=== PATIENT | male | born 1935 | race Caucasian/White ===

== ENCOUNTER 2017-06-27 06:26 | Inpatient (IN) ==
[2017-06-27] MEDS ORDERED: PROPOFOL 1,000 MG/100 ML BOTTLE IV ONE (06:48)
[2017-06-27] MEDS ORDERED: SUCCINYLCHOLINE 200 MG/10 ML VIAL ONE (06:49)
[2017-06-27] MEDS ORDERED: ETOMIDATE 20 MG/10 ML VIAL IV ONE (06:49)
[2017-06-27 07:19] LABS: Basophils % 0.4 % (0.0-0.8); Eosinophils # 0.3 10*3/uL (0.0-0.87); Eosinophils % 3.2 % (0.00-10.9); Hemoglobin 16.6 GM/DL (14.0-18.0); Immature Granulocytes % 0.8 %; Immature Granulocytes Absolute 0.07 #; Lymphocytes # 3.5 10*3/uL (1.4-4.0); Mean Corpuscular HGB Conc 32.5 GM/DL (32-36); Mean Corpuscular Hemoglobin 31 PG (27-34); Mean Corpuscular Volume 94.4 FL (87-102); Mean Platelet Volume 11.3 FL (9.6-12.0); Monocytes # 0.6 10*3/uL (0.11-0.8); Neutrophils # 4.5 10*3/uL (1.4-7.4); Neutrophils % 49.6 % (38.7-73.9); Platelet Count 136 T/CUMM (130-400); White Blood Count 9.1 T/CUMM (4-12)
[2017-06-27 07:28] LABS: INR 1.1; PT Patient Result 11.4 SECS; Partial Thromboplastin Time 26.1 SECS (0-40)
[2017-06-27 07:42] LABS: Alanine Aminotransferase 33 U/L (16-61); Albumin 3.7 G/DL (3.4-5.0); Alkaline Phosphatase 133 U/L (45-117); Aspartate Amino Transferase 42 U/L (0-37); Blood Urea Nitrogen 26 MG/DL (7-18); Calcium 8.6 MG/DL (8.5-10.1); Glucose 213 MG/DL (74-106); Osmolality,Calculated 287.5 MOS/KG (273-304); Potassium 4.2 MMOL/L (3.5-5.1); Sodium 139 MMOL/L (136-145); Total Protein 7.5 G/DL (6.4-8.3)
[2017-06-27] MEDS ORDERED: VECURONIUM 10 MG VIAL IV ONE ×3 (07:51→09:30)
[2017-06-27 07:53] LABS: Troponin I Only 0.193 NG/ML (0.00-0.045)
[2017-06-27] MEDS ORDERED: VECURONIUM 10 MG VIAL IV STA (08:44)
[2017-06-27] MEDS ORDERED: FUROSEMIDE 40 MG/4 ML VIAL IV STA (09:06)
[2017-06-27] MEDS ORDERED: NITROGLYCERIN 2% OINT 1 INCH/GM PACK TOP STA (09:06)
[2017-06-27] MEDS ORDERED: FUROSEMIDE 40 MG/4 ML VIAL ONE (09:10)
[2017-06-27] MEDS ORDERED: NITROGLYCERIN 2% OINT 1 INCH/GM PACK TOP ONE (09:11)
[2017-06-27 10:30] LABS: ABG Base Excess -4.9 MMOL/L (-2.5-2.5); ABG HCO3 20.5 MMOL/L (20-26); ABG Oxygen Saturation 98.9 % (95-100); ABG TCO2 22.2 MMOL/L (23-27); Pt O2 Delivery Device Ventilator
[2017-06-27 10:33] LABS: ABG PH 7.204 (7.35-7.45)
[2017-06-27] MEDS ORDERED: ENOXAPARIN 100 MG/ML SYRINGE SUBCUT SCH (11:00)
[2017-06-27] MEDS ORDERED: PIPERACILLIN/TAZOBACTAM 3.375 MG in SODIUM CHLORIDE 0.9% 100 ML IV SCH (11:00)
[2017-06-27] MEDS ORDERED: ASPIRIN 325 MG TABLET PO SCH (11:30)
[2017-06-27 11:42] LABS: ABG PCO2 58.6 MM HG (35-48); ABG PH 7.222 (7.35-7.45); Pt O2 Delivery Device Ventilator
[2017-06-27 11:43] LABS: ABG Base Excess -5.7 MMOL/L (-2.5-2.5); ABG HCO3 19.8 MMOL/L (20-26); ABG Oxygen Saturation 94.3 % (95-100); ABG PO2 80.5 MM HG (80-95); ABG TCO2 20.5 MMOL/L (23-27)
[2017-06-27 11:46] LABS: Free T4 (Free Thyroxine) 0.92 NG/DL (0.76-1.46); Thyroid Stimulating Hormone 5.26 uIU/ml (0.358-3.74)
[2017-06-27] MEDS ORDERED: METOPROLOL TARTRATE 5 MG/5 ML VIAL IV ONE (11:49)
[2017-06-27] MEDS: PROPOFOL 1,000 MG/100 ML BOTTLE IV SCH ×2 (11:51→21:23)
[2017-06-27] MEDS: NITROGLYCERIN DRIP 50 MG/250 ML BOTTLE IV SCH (11:58)
[2017-06-27] MEDS ORDERED: METOPROLOL TARTRATE 5 MG/5 ML VIAL IV SCH (12:00)
[2017-06-27] MEDS: PANTOPRAZOLE 40 MG VIAL IV SCH (12:30)
[2017-06-27] MEDS: METOPROLOL TARTRATE 5 MG/5 ML VIAL IV SCH ×3 (12:34→21:21)
[2017-06-27 12:47] LABS: Apearance,Urine CLEAR (Clear); Bilirubin,Urine Negative (Negative); Blood, Urine Small mg/dL (Negative); Glucose,Urine (UA) Negative (Negative); Hyaline Casts,Urine 4 /LPF (0-3); Ketones,Urine Negative (Negative); Mucus,Urine Occasional /LPF (Occasional); Nitrite,Urine Negative (Negative); Protein,Urine 30 MG/DL; RBC,Urine <1 /HPF (0-4); Squamous Epithelial Cell,Urine Occasional /HPF (0-10); Urine Color Straw (Yellow); Urine Specific Gravity 1.005 (1.001-1.035); Urine Urobilinogen < 2.0 EU/DL (0.2-1.0); WBC,Urine <1 /HPF (0-6)
[2017-06-27] MEDS: DOXYCYCLINE HYCLATE INJ 100 MG in SODIUM CHLORIDE 0.9% 100 ML IV SCH ×2 (13:29→22:05)
[2017-06-27] MEDS: PIPERACILLIN/TAZOBACTAM 3.375 MG in SODIUM CHLORIDE 0.9% 100 ML IV SCH ×2 (14:21→21:21)
[2017-06-27] MEDS ORDERED: cloNIDine 0.1 MG TABLET PO SCH (15:00)
[2017-06-27] MEDS ORDERED: ENOXAPARIN 40 MG/0.4 ML SYRINGE SUBCUT ONE (16:00)
[2017-06-27] MEDS: FUROSEMIDE 40 MG/4 ML VIAL IV SCH (17:17)
[2017-06-27 17:50] LABS: CKMB % 9.2 %
[2017-06-27 17:52] LABS: Troponin I Only 22.5 NG/ML (0.00-0.045)
[2017-06-28] MEDS: METOPROLOL TARTRATE 5 MG/5 ML VIAL IV SCH ×6 (01:37→21:08)
[2017-06-28] MEDS: PROPOFOL 1,000 MG/100 ML BOTTLE IV SCH ×4 (03:36→18:57)
[2017-06-28 03:46] LABS: ABG Base Excess -2.2 MMOL/L (-2.5-2.5); ABG HCO3 22.6 MMOL/L (20-26); ABG PCO2 34.4 MM HG (35-48); ABG PH 7.407 (7.35-7.45); ABG TCO2 17.9 MMOL/L (23-27)
[2017-06-28] MEDS: PIPERACILLIN/TAZOBACTAM 3.375 MG in SODIUM CHLORIDE 0.9% 100 ML IV SCH ×3 (04:44→21:08)
[2017-06-28 05:26] LABS: Basophils % 0.2 % (0.0-0.8); Hematocrit 49.2 VOL% (42.0-52.0); Hemoglobin 16.5 GM/DL (14.0-18.0); Immature Granulocytes % 0.5 %; Immature Granulocytes Absolute 0.07 #; Lymphocytes # 0.8 10*3/uL (1.4-4.0); Mean Corpuscular HGB Conc 33.5 GM/DL (32-36); Mean Corpuscular Hemoglobin 30 PG (27-34); Mean Corpuscular Volume 90.6 FL (87-102); Mean Platelet Volume 11.9 FL (9.6-12.0); Monocytes # 0.8 10*3/uL (0.11-0.8); Neutrophils # 13.8 10*3/uL (1.4-7.4); Neutrophils % 89.3 % (38.7-73.9); Platelet Count 114 T/CUMM (130-400); Red Blood Count 5.43 MC/CUMM (3.8-5.5); Red Cell Distribution Width 14.4 % (9.3-17.3); White Blood Count 15.5 T/CUMM (4-12)
[2017-06-28 06:06] LABS: CKMB % 4.5 %
[2017-06-28 06:07] LABS: Troponin I Only 17.4 NG/ML (0.00-0.045)
[2017-06-28 06:21] LABS: Calcium 8.6 MG/DL (8.5-10.1); Osmolality,Calculated 292.3 MOS/KG (273-304); Potassium 4.8 MMOL/L (3.5-5.1)
[2017-06-28] MEDS: PANTOPRAZOLE 40 MG VIAL IV SCH (08:52)
[2017-06-28] MEDS: FUROSEMIDE 40 MG/4 ML VIAL IV SCH ×2 (08:53→17:24)
[2017-06-28] MEDS ORDERED: ENOXAPARIN 40 MG/0.4 ML SYRINGE SUBCUT SCH (09:00)
[2017-06-28] MEDS: MORPHINE 2 MG/1 ML SYRINGE IV PRN (10:47)
[2017-06-28] MEDS: DOXYCYCLINE HYCLATE INJ 100 MG in SODIUM CHLORIDE 0.9% 100 ML IV SCH ×2 (11:35→23:39)
[2017-06-28] MEDS: ASPIRIN CHEW 81 MG TABLET PO SCH (12:29)
[2017-06-28] MEDS: CARVEDILOL 3.125 MG TABLET PO SCH ×2 (12:29→21:08)
[2017-06-28] MEDS: ATORVASTATIN 80 MG TABLET PO SCH (12:29)
[2017-06-28] MEDS: NITROGLYCERIN DRIP 50 MG/250 ML BOTTLE IV SCH (12:41)
[2017-06-28] MEDS ORDERED: DIGOXIN 0.5 MG/2 ML AMP IV ONE (15:17)
[2017-06-28] MEDS: OSELTAMIVIR 6 MG/ML 60 ML/BOTTLE PO SCH (17:23)
[2017-06-28] MEDS: PHENYLEPHRINE DRIP 40 MG/250 ML PREMIX IV SCH (21:02)
[2017-06-29] MEDS: PROPOFOL 1,000 MG/100 ML BOTTLE IV SCH ×4 (01:16→22:15)
[2017-06-29] MEDS: METOPROLOL TARTRATE 5 MG/5 ML VIAL IV SCH ×3 (01:17→08:09)
[2017-06-29 04:19] LABS: ABG Base Excess 1.9 MMOL/L (-2.5-2.5); ABG HCO3 26.1 MMOL/L (20-26); ABG Oxygen Saturation 98.6 % (95-100); ABG PCO2 37.4 MM HG (35-48); ABG PH 7.444 (7.35-7.45); ABG TCO2 21.3 MMOL/L (23-27); Allen Test Positive; Pt O2 Delivery Device Ventilator
[2017-06-29 05:12] LABS: Basophils % 0.1 % (0.0-0.8); Hemoglobin 16.6 GM/DL (14.0-18.0); Immature Granulocytes % 0.5 %; Immature Granulocytes Absolute 0.08 #; Lymphocytes # 1.1 10*3/uL (1.4-4.0); Lymphocytes % 7.1 % (21.2-54.2); Mean Corpuscular HGB Conc 33.9 GM/DL (32-36); Mean Corpuscular Hemoglobin 30 PG (27-34); Mean Corpuscular Volume 89.4 FL (87-102); Monocytes # 0.7 10*3/uL (0.11-0.8); Monocytes % 4.7 % (1.7-12.7); Neutrophils # 13.3 10*3/uL (1.4-7.4); Neutrophils % 87.6 % (38.7-73.9); Platelet Count 98 T/CUMM (130-400); Red Blood Count 5.48 MC/CUMM (3.8-5.5); Red Cell Distribution Width 14.4 % (9.3-17.3); White Blood Count 15.2 T/CUMM (4-12)
[2017-06-29 05:44] LABS: CKMB % 1.6 %; Troponin I Only 9.02 NG/ML (0.00-0.045)
[2017-06-29 05:49] LABS: Risk Ratio 4.61; VLDL CHOLESTEROL 46.2 MG/DL
[2017-06-29] MEDS: PIPERACILLIN/TAZOBACTAM 3.375 MG in SODIUM CHLORIDE 0.9% 100 ML IV SCH ×3 (05:50→21:25)
[2017-06-29 05:57] LABS: Giant Platelets Few; Hypochromasia Slight; Platelet Estimate Decreased
[2017-06-29 05:58] LABS: Calcium 8.6 MG/DL (8.5-10.1); Potassium 3.7 MMOL/L (3.5-5.1)
[2017-06-29] MEDS: ATORVASTATIN 80 MG TABLET PO SCH (08:07)
[2017-06-29] MEDS: CARVEDILOL 3.125 MG TABLET PO SCH ×2 (08:07→21:25)
[2017-06-29] MEDS: ASPIRIN CHEW 81 MG TABLET PO SCH (08:09)
[2017-06-29] MEDS: OSELTAMIVIR 6 MG/ML 60 ML/BOTTLE PO SCH (08:10)
[2017-06-29] MEDS: PANTOPRAZOLE 40 MG VIAL IV SCH (08:12)
[2017-06-29] MEDS ORDERED: FUROSEMIDE 100 MG/10 ML VIAL IV ONE (09:00)
[2017-06-29] MEDS ORDERED: ENOXAPARIN 30 MG/0.3 ML SYRINGE SUBCUT SCH (09:00)
[2017-06-29] MEDS: methylPREDNISolone SOD SUC 40 MG/1 ML VIAL IV SCH ×2 (09:15→16:15)
[2017-06-29] MEDS: NITROGLYCERIN DRIP 50 MG/250 ML BOTTLE IV SCH ×3 (10:06→17:50)
[2017-06-29] MEDS: DOXYCYCLINE HYCLATE INJ 100 MG in SODIUM CHLORIDE 0.9% 100 ML IV SCH ×2 (10:40→23:09)
[2017-06-29] MEDS ORDERED: ENOXAPARIN 60 MG/0.6 ML SYRINGE SUBCUT ONE (11:41)
[2017-06-29] MEDS: PHENYLEPHRINE DRIP 40 MG/250 ML PREMIX IV SCH (15:11)
[2017-06-29] MEDS: MORPHINE 2 MG/1 ML SYRINGE IV PRN ×2 (16:10→23:06)
[2017-06-30] MEDS: methylPREDNISolone SOD SUC 40 MG/1 ML VIAL IV SCH ×3 (01:13→16:46)
[2017-06-30 01:47] LABS: Basophils % 0.1 % (0.0-0.8); Hematocrit 47.2 VOL% (42.0-52.0); Hemoglobin 16.1 GM/DL (14.0-18.0); Immature Granulocytes % 0.6 %; Immature Granulocytes Absolute 0.09 #; Lymphocytes # 0.7 10*3/uL (1.4-4.0); Mean Corpuscular HGB Conc 34.1 GM/DL (32-36); Mean Corpuscular Hemoglobin 31 PG (27-34); Mean Corpuscular Volume 89.6 FL (87-102); Mean Platelet Volume 12.3 FL (9.6-12.0); Monocytes # 0.4 10*3/uL (0.11-0.8); Monocytes % 2.8 % (1.7-12.7); Neutrophils # 12.9 10*3/uL (1.4-7.4); Neutrophils % 91.5 % (38.7-73.9); Platelet Count 116 T/CUMM (130-400); Red Blood Count 5.27 MC/CUMM (3.8-5.5); Red Cell Distribution Width 14.2 % (9.3-17.3)
[2017-06-30 02:02] LABS: Calcium 8.2 MG/DL (8.5-10.1); Osmolality,Calculated 312.8 MOS/KG (273-304); Potassium 3.3 MMOL/L (3.5-5.1)
[2017-06-30] MEDS ORDERED: METOPROLOL TARTRATE 5 MG/5 ML VIAL IV ONE ×2 (03:36)
[2017-06-30 04:29] LABS: Allen Test Positive; Pt O2 Delivery Device Ventilator
[2017-06-30 04:30] LABS: ABG Base Excess 2.1 MMOL/L (-2.5-2.5); ABG HCO3 26.3 MMOL/L (20-26); ABG Oxygen Saturation 99.1 % (95-100); ABG PCO2 40.1 MM HG (35-48); ABG PH 7.428 (7.35-7.45); ABG TCO2 22.3 MMOL/L (23-27)
[2017-06-30] MEDS: PROPOFOL 1,000 MG/100 ML BOTTLE IV SCH (04:58)
[2017-06-30] MEDS: PIPERACILLIN/TAZOBACTAM 3.375 MG in SODIUM CHLORIDE 0.9% 100 ML IV SCH ×3 (04:59→21:45)
[2017-06-30 05:02] LABS: Anisocytosis 1+; Band Neutrophils 2 % (0-10); Lymphocytes 4 % (20-55); Macrocytosis 1+; Platelet Estimate Decreased; Segmented Neutrophils 92 % (50-85); Total Cells Counted 100
[2017-06-30] MEDS: ATORVASTATIN 80 MG TABLET PO SCH (08:51)
[2017-06-30] MEDS: OSELTAMIVIR 6 MG/ML 60 ML/BOTTLE PO SCH (08:51)
[2017-06-30] MEDS: ASPIRIN CHEW 81 MG TABLET PO SCH (08:51)
[2017-06-30] MEDS: CARVEDILOL 3.125 MG TABLET PO SCH (08:51)
[2017-06-30] MEDS: PANTOPRAZOLE 40 MG VIAL IV SCH (08:52)
[2017-06-30] MEDS ORDERED: CARVEDILOL 3.125 MG TABLET PO ONE (09:59)
[2017-06-30] MEDS ORDERED: ENOXAPARIN 100 MG/ML SYRINGE SUBCUT SCH (10:00)
[2017-06-30] MEDS: DOXYCYCLINE HYCLATE INJ 100 MG in SODIUM CHLORIDE 0.9% 100 ML IV SCH ×2 (11:30→23:56)
[2017-06-30] MEDS: ENOXAPARIN 100 MG/ML SYRINGE SUBCUT SCH (11:30)
[2017-06-30] MEDS ORDERED: CARVEDILOL 3.125 MG TABLET PO SCH (12:00)
[2017-06-30] MEDS: PHENYLEPHRINE DRIP 40 MG/250 ML PREMIX IV SCH (16:31)
[2017-06-30] MEDS: POTASSIUM CHLORIDE 20 MEQ TABLET PO PRN ×3 (16:46→21:46)
[2017-06-30] MEDS: NYSTATIN 500,000 UNIT/5 ML UDCUP SWISH/SWAL SCH ×2 (16:46→21:46)
[2017-06-30] MEDS: NITROGLYCERIN DRIP 50 MG/250 ML BOTTLE IV SCH (18:39)
[2017-06-30] MEDS: CARVEDILOL 6.25 MG TABLET PO SCH (21:46)
[2017-06-30] MEDS: MORPHINE 2 MG/1 ML SYRINGE IV PRN (21:52)
[2017-06-30] MEDS ORDERED: MAGNESIUM SULF RIDER 2 GM in PREMIX 1 EACH IV PRN (22:50)
[2017-06-30] MEDS ORDERED: MAGNESIUM SULF RIDER 4 GM in PREMIX 1 EACH IV PRN (22:50)
[2017-06-30] MEDS: ASCORBIC ACID 500 MG TABLET PO SCH (23:57)
[2017-06-30] MEDS: METOPROLOL TARTRATE 5 MG/5 ML VIAL IV SCH (23:58)
[2017-07-01] MEDS: methylPREDNISolone SOD SUC 40 MG/1 ML VIAL IV SCH ×3 (00:03→17:22)
[2017-07-01] MEDS: NITROGLYCERIN DRIP 50 MG/250 ML BOTTLE IV SCH (03:27)
[2017-07-01 04:51] LABS: Basophils % 0.1 % (0.0-0.8); Hematocrit 39.7 VOL% (42.0-52.0); Hemoglobin 13.6 GM/DL (14.0-18.0); Immature Granulocytes % 0.7 %; Immature Granulocytes Absolute 0.08 #; Lymphocytes # 0.5 10*3/uL (1.4-4.0); Lymphocytes % 4.4 % (21.2-54.2); Mean Corpuscular HGB Conc 34.3 GM/DL (32-36); Mean Corpuscular Hemoglobin 30 PG (27-34); Mean Corpuscular Volume 88.8 FL (87-102); Mean Platelet Volume 12.2 FL (9.6-12.0); Monocytes # 0.4 10*3/uL (0.11-0.8); Monocytes % 3.1 % (1.7-12.7); Neutrophils % 91.7 % (38.7-73.9); Platelet Count 112 T/CUMM (130-400); Red Blood Count 4.47 MC/CUMM (3.8-5.5); Red Cell Distribution Width 13.6 % (9.3-17.3)
[2017-07-01 05:14] LABS: Giant Platelets Few; Hypochromasia 1+; Lymphocytes 6 % (20-55); Ovalocytes Slight; Platelet Estimate Decreased; Segmented Neutrophils 94 % (50-85); Total Cells Counted 100
[2017-07-01 05:45] LABS: Calcium 8.2 MG/DL (8.5-10.1); Osmolality,Calculated 307.4 MOS/KG (273-304); Potassium 3.7 MMOL/L (3.5-5.1)
[2017-07-01] MEDS: METOPROLOL TARTRATE 5 MG/5 ML VIAL IV SCH (07:13)
[2017-07-01] MEDS: POTASSIUM CHLORIDE 20 MEQ TABLET PO PRN (07:15)
[2017-07-01] MEDS: PIPERACILLIN/TAZOBACTAM 3.375 MG in SODIUM CHLORIDE 0.9% 100 ML IV SCH ×3 (07:15→21:51)
[2017-07-01] MEDS: ATORVASTATIN 80 MG TABLET PO SCH (08:55)
[2017-07-01] MEDS: NYSTATIN 500,000 UNIT/5 ML UDCUP SWISH/SWAL SCH ×4 (08:55→21:50)
[2017-07-01] MEDS: ISOSORBIDE MONONITRATE 30 MG TABLET PO SCH (08:55)
[2017-07-01] MEDS: ASPIRIN CHEW 81 MG TABLET PO SCH (08:55)
[2017-07-01] MEDS: ASCORBIC ACID 500 MG TABLET PO SCH ×2 (08:55→21:50)
[2017-07-01] MEDS: CARVEDILOL 6.25 MG TABLET PO SCH (08:55)
[2017-07-01] MEDS: PANTOPRAZOLE 40 MG VIAL IV SCH (08:56)
[2017-07-01] MEDS: OSELTAMIVIR 6 MG/ML 60 ML/BOTTLE PO SCH (08:59)
[2017-07-01] MEDS ORDERED: amLODIPine 5 MG TABLET PO SCH (09:00)
[2017-07-01] MEDS: ENOXAPARIN 100 MG/ML SYRINGE SUBCUT SCH (10:01)
[2017-07-01] MEDS: DOXYCYCLINE HYCLATE INJ 100 MG in SODIUM CHLORIDE 0.9% 100 ML IV SCH (11:31)
[2017-07-01] MEDS ORDERED: diphenhydrAMINE CAP 25 MG CAPSULE PO ONE (13:43)
[2017-07-01] MEDS: MORPHINE 2 MG/1 ML SYRINGE IV PRN (14:13)
[2017-07-01] MEDS: MAGNESIUM OXIDE 400 MG TABLET PO SCH (14:16)
[2017-07-01] MEDS: LORATADINE 10 MG TABLET PO SCH (14:16)
[2017-07-01] MEDS: SODIUM BICARB INJ 100 MEQ in SODIUM CHLORIDE 0.45% 1,000 ML IV SCH (14:22)
[2017-07-01] MEDS ORDERED: CARVEDILOL 12.5 MG TABLET PO SCH (21:00)
[2017-07-01] MEDS: hydrALAZINE 25 MG TABLET PO SCH (21:50)
[2017-07-02] MEDS: methylPREDNISolone SOD SUC 40 MG/1 ML VIAL IV SCH ×3 (01:37→17:21)
[2017-07-02] MEDS: DOXYCYCLINE HYCLATE INJ 100 MG in SODIUM CHLORIDE 0.9% 100 ML IV SCH ×3 (01:38→22:48)
[2017-07-02] MEDS: PIPERACILLIN/TAZOBACTAM 3.375 MG in SODIUM CHLORIDE 0.9% 100 ML IV SCH ×3 (05:49→20:29)
[2017-07-02 06:00] LABS: Basophils % 0.2 % (0.0-0.8); Hematocrit 43.1 VOL% (42.0-52.0); Hemoglobin 14.9 GM/DL (14.0-18.0); Immature Granulocytes % 1.5 %; Immature Granulocytes Absolute 0.14 #; Lymphocytes # 0.4 10*3/uL (1.4-4.0); Lymphocytes % 4.5 % (21.2-54.2); Mean Corpuscular HGB Conc 34.6 GM/DL (32-36); Mean Corpuscular Hemoglobin 30 PG (27-34); Mean Corpuscular Volume 87.2 FL (87-102); Mean Platelet Volume 12.3 FL (9.6-12.0); Monocytes # 0.5 10*3/uL (0.11-0.8); Monocytes % 4.9 % (1.7-12.7); Neutrophils # 8.6 10*3/uL (1.4-7.4); Neutrophils % 88.9 % (38.7-73.9); Platelet Count 127 T/CUMM (130-400); Red Blood Count 4.94 MC/CUMM (3.8-5.5); Red Cell Distribution Width 13.6 % (9.3-17.3); White Blood Count 9.6 T/CUMM (4-12)
[2017-07-02 06:32] LABS: Calcium 8.1 MG/DL (8.5-10.1); Potassium 3.6 MMOL/L (3.5-5.1)
[2017-07-02] MEDS ORDERED: DIAZEPAM 5 MG TABLET PO ONE (07:00)
[2017-07-02] MEDS: hydrALAZINE 25 MG TABLET PO SCH (08:10)
[2017-07-02] MEDS: amLODIPine 10 MG TABLET PO SCH (08:10)
[2017-07-02] MEDS: ISOSORBIDE MONONITRATE 30 MG TABLET PO SCH (08:10)
[2017-07-02 08:27] LABS: Hypochromasia 1+; Lymphocytes 2 % (20-55); Microcytosis 1+; Platelet Estimate Decreased; Segmented Neutrophils 95 % (50-85); Total Cells Counted 100
[2017-07-02] MEDS ORDERED: CARVEDILOL 25 MG TABLET PO SCH (09:00)
[2017-07-02] MEDS: MORPHINE 2 MG/1 ML SYRINGE IV PRN (10:15)
[2017-07-02] MEDS: PANTOPRAZOLE 40 MG VIAL IV SCH (10:19)
[2017-07-02] MEDS: OSELTAMIVIR 6 MG/ML 60 ML/BOTTLE PO SCH (10:19)
[2017-07-02] MEDS: ENOXAPARIN 100 MG/ML SYRINGE SUBCUT SCH (10:19)
[2017-07-02] MEDS: MAGNESIUM OXIDE 400 MG TABLET PO SCH (10:20)
[2017-07-02] MEDS: ASCORBIC ACID 500 MG TABLET PO SCH ×2 (10:20→20:30)
[2017-07-02] MEDS: NYSTATIN 500,000 UNIT/5 ML UDCUP SWISH/SWAL SCH ×4 (10:20→20:30)
[2017-07-02] MEDS: LORATADINE 10 MG TABLET PO SCH (10:21)
[2017-07-02] MEDS: ATORVASTATIN 80 MG TABLET PO SCH (10:21)
[2017-07-02] MEDS: ASPIRIN CHEW 81 MG TABLET PO SCH (10:21)
[2017-07-02] MEDS: SODIUM BICARB INJ 100 MEQ in SODIUM CHLORIDE 0.45% 1,000 ML IV SCH (12:52)
[2017-07-02] MEDS ORDERED: CARVEDILOL 12.5 MG TABLET PO SCH (21:00)
[2017-07-03] MEDS: methylPREDNISolone SOD SUC 40 MG/1 ML VIAL IV SCH ×2 (01:00→09:13)
[2017-07-03] MEDS: PIPERACILLIN/TAZOBACTAM 3.375 MG in SODIUM CHLORIDE 0.9% 100 ML IV SCH ×3 (05:15→20:35)
[2017-07-03 05:49] LABS: Basophils % 0.1 % (0.0-0.8); Hematocrit 42.4 VOL% (42.0-52.0); Hemoglobin 14.4 GM/DL (14.0-18.0); Immature Granulocytes % 1.2 %; Lymphocytes # 0.4 10*3/uL (1.4-4.0); Lymphocytes % 4.9 % (21.2-54.2); Mean Corpuscular Hemoglobin 30 PG (27-34); Mean Corpuscular Volume 88.3 FL (87-102); Mean Platelet Volume 12.4 FL (9.6-12.0); Monocytes # 0.6 10*3/uL (0.11-0.8); Monocytes % 7.2 % (1.7-12.7); Neutrophils # 7.1 10*3/uL (1.4-7.4); Neutrophils % 86.6 % (38.7-73.9); Platelet Count 111 T/CUMM (130-400); Red Cell Distribution Width 13.6 % (9.3-17.3); White Blood Count 8.2 T/CUMM (4-12)
[2017-07-03 06:13] LABS: Calcium 7.9 MG/DL (8.5-10.1); Magnesium 2.4 MG/DL (1.8-2.4); Osmolality,Calculated 297.1 MOS/KG (273-304); Potassium 3.8 MMOL/L (3.5-5.1)
[2017-07-03 06:21] LABS: Osmolality,Calculated 297.1 MOS/KG (273-304); Potassium 3.8 MMOL/L (3.5-5.1)
[2017-07-03 08:32] LABS: Band Neutrophils 6 % (0-10); Lymphocytes 11 % (20-55); Platelet Estimate Normal; Segmented Neutrophils 80 % (50-85); Total Cells Counted 100
[2017-07-03] MEDS: ATORVASTATIN 80 MG TABLET PO SCH (09:00)
[2017-07-03] MEDS: ASCORBIC ACID 500 MG TABLET PO SCH ×2 (09:00→20:36)
[2017-07-03] MEDS: amLODIPine 10 MG TABLET PO SCH (09:00)
[2017-07-03] MEDS: MAGNESIUM OXIDE 400 MG TABLET PO SCH (09:01)
[2017-07-03] MEDS: LORATADINE 10 MG TABLET PO SCH (09:01)
[2017-07-03] MEDS: ISOSORBIDE MONONITRATE 30 MG TABLET PO SCH (09:01)
[2017-07-03] MEDS: ENOXAPARIN 100 MG/ML SYRINGE SUBCUT SCH (09:02)
[2017-07-03] MEDS: NYSTATIN 500,000 UNIT/5 ML UDCUP SWISH/SWAL SCH ×4 (09:02→20:36)
[2017-07-03] MEDS: OSELTAMIVIR 6 MG/ML 60 ML/BOTTLE PO SCH (09:02)
[2017-07-03] MEDS: ASPIRIN CHEW 81 MG TABLET PO SCH (09:02)
[2017-07-03] MEDS: CARVEDILOL 25 MG TABLET PO SCH ×2 (09:05→20:36)
[2017-07-03] MEDS: PANTOPRAZOLE 40 MG VIAL IV SCH (09:10)
[2017-07-03] MEDS: DOXYCYCLINE HYCLATE INJ 100 MG in SODIUM CHLORIDE 0.9% 100 ML IV SCH ×2 (10:42→23:47)
[2017-07-03] MEDS: ISOSORBIDE MONONITRATE 60 MG TABLET PO SCH (10:43)
[2017-07-03] MEDS: ZINC OXIDE PASTE 113 GM TUBE TOP SCH (20:35)
[2017-07-04 04:16] LABS: Calcium 7.8 MG/DL (8.5-10.1); Magnesium 2.4 MG/DL (1.8-2.4); Potassium 3.9 MMOL/L (3.5-5.1)
[2017-07-04] MEDS: PIPERACILLIN/TAZOBACTAM 3.375 MG in SODIUM CHLORIDE 0.9% 100 ML IV SCH ×3 (05:13→20:48)
[2017-07-04] MEDS: amLODIPine 10 MG TABLET PO SCH (08:40)
[2017-07-04] MEDS: predniSONE 20 MG TABLET PO SCH (08:40)
[2017-07-04] MEDS: MAGNESIUM OXIDE 400 MG TABLET PO SCH (08:40)
[2017-07-04] MEDS: ASPIRIN CHEW 81 MG TABLET PO SCH (08:40)
[2017-07-04] MEDS: CARVEDILOL 25 MG TABLET PO SCH ×2 (08:40→20:47)
[2017-07-04] MEDS: ISOSORBIDE MONONITRATE 60 MG TABLET PO SCH (08:41)
[2017-07-04] MEDS: NYSTATIN 500,000 UNIT/5 ML UDCUP SWISH/SWAL SCH ×4 (08:41→20:46)
[2017-07-04] MEDS: ATORVASTATIN 80 MG TABLET PO SCH (08:41)
[2017-07-04] MEDS: ZINC OXIDE PASTE 113 GM TUBE TOP SCH ×2 (08:41→23:08)
[2017-07-04] MEDS: PANTOPRAZOLE 40 MG VIAL IV SCH (08:44)
[2017-07-04] MEDS: DOXYCYCLINE HYCLATE INJ 100 MG in SODIUM CHLORIDE 0.9% 100 ML IV SCH ×2 (11:45→23:08)
[2017-07-04] MEDS ORDERED: POTASSIUM CHLORIDE RIDER 10 MEQ in PREMIX 1 EACH IV PRN (13:33)
[2017-07-04] MEDS ORDERED: MAGNESIUM SULF RIDER 2 GM in PREMIX 1 EACH IV PRN (13:33)
[2017-07-04] MEDS ORDERED: diphenhydrAMINE CAP 25 MG CAPSULE PO ONE (13:33)
[2017-07-04] MEDS ORDERED: DIAZEPAM 5 MG TABLET PO ONE (13:33)
[2017-07-04] MEDS ORDERED: LIDOCAINE 1% 20 ML VIAL ONE (15:58)
[2017-07-04] MEDS ORDERED: HYDROmorphone 2 MG/1 ML VIAL ONE (15:59)
[2017-07-04] MEDS ORDERED: MIDAZOLAM 2 MG/2 ML VIAL ONE (15:59)
[2017-07-04] MEDS ORDERED: ENOXAPARIN 60 MG/0.6 ML SYRINGE ONE (16:24)
[2017-07-04] MEDS ORDERED: TIROFIBAN 5,000 MCG/100 ML PREMIX IV ONE (16:27)
[2017-07-04] MEDS ORDERED: ENOXAPARIN 30 MG/0.3 ML SYRINGE ONE (16:44)
[2017-07-04] MEDS ORDERED: TIROFIBAN 5,000 MCG/100 ML PREMIX IV SCH (16:47)
[2017-07-04] MEDS: ASCORBIC ACID 500 MG TABLET PO SCH ×2 (17:25→20:47)
[2017-07-04] MEDS: LORATADINE 10 MG TABLET PO SCH (17:25)
[2017-07-04] MEDS: ENOXAPARIN 100 MG/ML SYRINGE SUBCUT SCH (17:26)
[2017-07-04] MEDS ORDERED: TICAGRELOR 90 MG TABLET ONE (17:27)
[2017-07-04] MEDS ORDERED: NITROGLYCERIN SL 0.4 MG TABLET SL PRN (17:28)
[2017-07-04] MEDS ORDERED: ZALEPLON 5 MG CAPSULE PO PRN (17:28)
[2017-07-04] MEDS ORDERED: ONDANSETRON 4 MG/2 ML VIAL IV PRN (17:28)
[2017-07-04] MEDS ORDERED: SODIUM CHLORIDE 0.45% 1,000 ML IV SCH (17:30)
[2017-07-04 19:40] LABS: CKMB % 1.8 %; Troponin I Only 0.72 NG/ML (0.00-0.045)
[2017-07-04] MEDS: TICAGRELOR 90 MG TABLET PO SCH (20:47)
[2017-07-04] MEDS: SODIUM BICARB INJ 100 MEQ in SODIUM CHLORIDE 0.45% 1,000 ML IV SCH (20:47)
[2017-07-05] MEDS: PIPERACILLIN/TAZOBACTAM 3.375 MG in SODIUM CHLORIDE 0.9% 100 ML IV SCH ×3 (05:22→21:19)
[2017-07-05 06:20] LABS: Basophils % 0.2 % (0.0-0.8); Eosinophils # 0.2 10*3/uL (0.0-0.87); Eosinophils % 1.3 % (0.00-10.9); Hematocrit 40.6 VOL% (42.0-52.0); Hemoglobin 13.8 GM/DL (14.0-18.0); Immature Granulocytes % 1.6 %; Immature Granulocytes Absolute 0.19 #; Lymphocytes # 0.6 10*3/uL (1.4-4.0); Lymphocytes % 4.8 % (21.2-54.2); Mean Corpuscular Hemoglobin 30 PG (27-34); Mean Corpuscular Volume 89.2 FL (87-102); Mean Platelet Volume 12.3 FL (9.6-12.0); Monocytes # 0.9 10*3/uL (0.11-0.8); Monocytes % 7.6 % (1.7-12.7); Neutrophils # 10.2 10*3/uL (1.4-7.4); Neutrophils % 84.5 % (38.7-73.9); Platelet Count 147 T/CUMM (130-400); Red Blood Count 4.55 MC/CUMM (3.8-5.5)
[2017-07-05 06:46] LABS: Eosinophils 1 % (0-10); Lymphocytes 4 % (20-55); Segmented Neutrophils 89 % (50-85); Total Cells Counted 100
[2017-07-05 06:47] LABS: Hypochromasia 1+; Microcytosis Slight; Platelet Estimate Adequate
[2017-07-05 06:54] LABS: Calcium 8.1 MG/DL (8.5-10.1); Magnesium 2.7 MG/DL (1.8-2.4); Osmolality,Calculated 298.1 MOS/KG (273-304); Potassium 3.7 MMOL/L (3.5-5.1)
[2017-07-05 07:00] LABS: CKMB % 2.1 %; Calcium 8.1 MG/DL (8.5-10.1); Osmolality,Calculated 298.1 MOS/KG (273-304); Potassium 3.8 MMOL/L (3.5-5.1); Troponin I Only 0.856 NG/ML (0.00-0.045)
[2017-07-05] MEDS: TICAGRELOR 90 MG TABLET PO SCH ×2 (09:14→21:20)
[2017-07-05] MEDS: MAGNESIUM OXIDE 400 MG TABLET PO SCH (09:14)
[2017-07-05] MEDS: ASPIRIN CHEW 81 MG TABLET PO SCH (09:14)
[2017-07-05] MEDS: ISOSORBIDE MONONITRATE 60 MG TABLET PO SCH (09:14)
[2017-07-05] MEDS: ASCORBIC ACID 500 MG TABLET PO SCH ×2 (09:14→21:20)
[2017-07-05] MEDS: amLODIPine 10 MG TABLET PO SCH (09:14)
[2017-07-05] MEDS: ATORVASTATIN 80 MG TABLET PO SCH (09:14)
[2017-07-05] MEDS: NYSTATIN 500,000 UNIT/5 ML UDCUP SWISH/SWAL SCH ×4 (09:14→21:19)
[2017-07-05] MEDS: LORATADINE 10 MG TABLET PO SCH (09:15)
[2017-07-05] MEDS: ZINC OXIDE PASTE 113 GM TUBE TOP SCH ×2 (09:15→21:20)
[2017-07-05] MEDS: CARVEDILOL 25 MG TABLET PO SCH ×2 (09:15→21:19)
[2017-07-05] MEDS: predniSONE 20 MG TABLET PO SCH (09:15)
[2017-07-05] MEDS: PANTOPRAZOLE 40 MG VIAL IV SCH (09:16)
[2017-07-05] MEDS: ENOXAPARIN 100 MG/ML SYRINGE SUBCUT SCH (09:16)
[2017-07-05] MEDS: DOXYCYCLINE HYCLATE INJ 100 MG in SODIUM CHLORIDE 0.9% 100 ML IV SCH ×2 (12:31→23:15)
[2017-07-05] MEDS: SODIUM BICARB INJ 100 MEQ in SODIUM CHLORIDE 0.45% 1,000 ML IV SCH (21:21)
[2017-07-06 04:12] LABS: Basophils % 0.1 % (0.0-0.8); Eosinophils # 0.4 10*3/uL (0.0-0.87); Eosinophils % 3.8 % (0.00-10.9); Hematocrit 36.3 VOL% (42.0-52.0); Hemoglobin 12.3 GM/DL (14.0-18.0); Immature Granulocytes % 1.3 %; Immature Granulocytes Absolute 0.12 #; Lymphocytes # 0.7 10*3/uL (1.4-4.0); Lymphocytes % 7.4 % (21.2-54.2); Mean Corpuscular HGB Conc 33.9 GM/DL (32-36); Mean Corpuscular Hemoglobin 30 PG (27-34); Mean Corpuscular Volume 88.8 FL (87-102); Mean Platelet Volume 11.5 FL (9.6-12.0); Monocytes # 0.7 10*3/uL (0.11-0.8); Monocytes % 7.8 % (1.7-12.7); Neutrophils # 7.2 10*3/uL (1.4-7.4); Neutrophils % 79.6 % (38.7-73.9); Platelet Count 137 T/CUMM (130-400); Red Blood Count 4.09 MC/CUMM (3.8-5.5); Red Cell Distribution Width 13.9 % (9.3-17.3); White Blood Count 9.1 T/CUMM (4-12)
[2017-07-06 04:44] LABS: Magnesium 2.5 MG/DL (1.8-2.4); Osmolality,Calculated 296.3 MOS/KG (273-304); Potassium 3.6 MMOL/L (3.5-5.1)
[2017-07-06 04:52] LABS: Troponin I Only 0.788 NG/ML (0.00-0.045)
[2017-07-06] MEDS: PIPERACILLIN/TAZOBACTAM 3.375 MG in SODIUM CHLORIDE 0.9% 100 ML IV SCH ×2 (05:22→13:12)
[2017-07-06] MEDS ORDERED: ASPIRIN EC 81 MG TABLET PO SCH (09:00)
[2017-07-06] MEDS: PANTOPRAZOLE 40 MG VIAL IV SCH (09:30)
[2017-07-06] MEDS: MAGNESIUM OXIDE 400 MG TABLET PO SCH (09:52)
[2017-07-06] MEDS: CARVEDILOL 25 MG TABLET PO SCH (09:52)
[2017-07-06] MEDS: ASCORBIC ACID 500 MG TABLET PO SCH (09:53)
[2017-07-06] MEDS: amLODIPine 10 MG TABLET PO SCH (09:53)
[2017-07-06] MEDS: ISOSORBIDE MONONITRATE 60 MG TABLET PO SCH (09:53)
[2017-07-06] MEDS: predniSONE 20 MG TABLET PO SCH (09:53)
[2017-07-06] MEDS: LORATADINE 10 MG TABLET PO SCH (09:53)
[2017-07-06] MEDS: ATORVASTATIN 80 MG TABLET PO SCH (09:53)
[2017-07-06] MEDS: TICAGRELOR 90 MG TABLET PO SCH (09:53)
[2017-07-06] MEDS: NYSTATIN 500,000 UNIT/5 ML UDCUP SWISH/SWAL SCH ×2 (09:54→12:42)
[2017-07-06] MEDS: ZINC OXIDE PASTE 113 GM TUBE TOP SCH (09:54)
[2017-07-06] MEDS: ENOXAPARIN 100 MG/ML SYRINGE SUBCUT SCH (10:54)
[2017-07-06 11:34] VITALS: BP 109/51
[2017-07-06] MEDS: DOXYCYCLINE HYCLATE INJ 100 MG in SODIUM CHLORIDE 0.9% 100 ML IV SCH (12:07)
[2017-07-06] MEDS: SODIUM BICARB INJ 100 MEQ in SODIUM CHLORIDE 0.45% 1,000 ML IV SCH (12:41)
== END 2017-07-06 15:50 | disposition home or self-care (01) | DRG 981 ==
LOC: N.ED 06:26 → SUATTDRO 08:51 → N.EDINP 08:51 → N.CC 09:27 → N.TELEN 07-01 13:45
PROVIDERS: ADMIT Hospitalist; ATTEND Internal Medicine
PROC: CLCCHCL (ICD-10-PCS; 2017-07-04 15:15)

== ENCOUNTER 2017-07-07 12:45 | Inpatient (IN) ==
[2017-07-07] MEDS ORDERED: SODIUM CHLORIDE 0.9% 1,000 ML IV STA ×2 (13:00→13:25)
[2017-07-07 13:39] LABS: ABG Base Excess 3.9 MMOL/L (-2.5-2.5); ABG HCO3 27.9 MMOL/L (20-26); ABG Oxygen Saturation 98.3 % (95-100); ABG PCO2 40.1 MM HG (35-48); ABG PH 7.454 (7.35-7.45); ABG PO2 99.3 MM HG (80-95); ABG TCO2 25.8 MMOL/L (23-27)
[2017-07-07 14:26] LABS: Albumin 1.5 G/DL (3.4-5.0); Bilirubin,Total 0.6 MG/DL (0.2-1.0); Calcium 6.9 MG/DL (8.5-10.1); Osmolality,Calculated 302.6 MOS/KG (273-304); Potassium 3.5 MMOL/L (3.5-5.1); Total Protein 3.4 G/DL (6.4-8.3)
[2017-07-07] MEDS ORDERED: MAGNESIUM SULF RIDER 4 GM in PREMIX 1 EACH IV PRN (14:36)
[2017-07-07] MEDS ORDERED: LACTULOSE 20 GM/30 ML UDCUP PO PRN (14:36)
[2017-07-07] MEDS ORDERED: POTASSIUM CHLORIDE 20 MEQ TABLET PO PRN (14:36)
[2017-07-07] MEDS ORDERED: DOCUSATE SODIUM 100 MG CAPSULE PO PRN (14:36)
[2017-07-07] MEDS ORDERED: ACETAMINOPHEN 325 MG TABLET PO PRN (14:36)
[2017-07-07] MEDS ORDERED: ONDANSETRON 4 MG/2 ML VIAL IV PRN (14:36)
[2017-07-07] MEDS ORDERED: MAGNESIUM SULF RIDER 2 GM in PREMIX 1 EACH IV PRN (14:36)
[2017-07-07 14:53] LABS: Basophils % 0.1 % (0.0-0.8); Eosinophils # 0.2 10*3/uL (0.0-0.87); Eosinophils % 1.2 % (0.00-10.9); Hematocrit 30.5 VOL% (42.0-52.0); Hemoglobin 10.2 GM/DL (14.0-18.0); Immature Granulocytes % 1.4 %; Immature Granulocytes Absolute 0.18 #; Lymphocytes # 0.8 10*3/uL (1.4-4.0); Lymphocytes % 5.9 % (21.2-54.2); Mean Corpuscular HGB Conc 33.4 GM/DL (32-36); Mean Corpuscular Hemoglobin 30 PG (27-34); Mean Corpuscular Volume 90.8 FL (87-102); Mean Platelet Volume 11.7 FL (9.6-12.0); Monocytes # 0.9 10*3/uL (0.11-0.8); Neutrophils % 84.4 % (38.7-73.9); Platelet Count 163 T/CUMM (130-400); Red Blood Count 3.36 MC/CUMM (3.8-5.5); Red Cell Distribution Width 13.9 % (9.3-17.3)
[2017-07-07 14:53] LABS: Apearance,Urine CLEAR (Clear); Bacteria,Urine Occasional /HPF (Few); Bilirubin,Urine Negative (Negative); Blood, Urine Negative (Negative); Glucose,Urine (UA) Negative (Negative); Hyaline Casts,Urine 4 /LPF (0-3); Ketones,Urine Negative (Negative); Nitrite,Urine Negative (Negative); Protein,Urine Negative; RBC,Urine 2 /HPF (0-4); Urine Color Yellow (Yellow); Urine Specific Gravity 1.021 (1.001-1.035); Urine Urobilinogen < 2.0 EU/DL (0.2-1.0); WBC,Urine 1 /HPF (0-6)
[2017-07-07] MEDS ORDERED: HEPARIN/NACL 0.9% 2 UNITS/ML 0 ML IV ONE (14:55)
[2017-07-07] MEDS ORDERED: LIDOCAINE 1% 20 ML VIAL ONE (14:55)
[2017-07-07] MEDS ORDERED: SODIUM CHLORIDE 0.9% 1,000 ML IV SCH (15:00)
[2017-07-07 15:07] LABS: INR 1.1; PT Patient Result 11.4 SECS; Partial Thromboplastin Time 25.3 SECS (0-40)
[2017-07-07 17:51] LABS: Eosinophils # 0.1 10*3/uL (0.0-0.87); Eosinophils % 0.5 % (0.00-10.9); Hematocrit 30.8 VOL% (42.0-52.0); Hemoglobin 10.2 GM/DL (14.0-18.0); Immature Granulocytes % 1.4 %; Immature Granulocytes Absolute 0.19 #; Lymphocytes # 0.6 10*3/uL (1.4-4.0); Lymphocytes % 4.5 % (21.2-54.2); Mean Corpuscular HGB Conc 33.1 GM/DL (32-36); Mean Corpuscular Hemoglobin 30 PG (27-34); Mean Corpuscular Volume 90.1 FL (87-102); Mean Platelet Volume 11.5 FL (9.6-12.0); Monocytes # 0.8 10*3/uL (0.11-0.8); Monocytes % 5.6 % (1.7-12.7); Neutrophils # 12.2 10*3/uL (1.4-7.4); Platelet Count 155 T/CUMM (130-400); Red Blood Count 3.42 MC/CUMM (3.8-5.5); Red Cell Distribution Width 13.9 % (9.3-17.3); White Blood Count 13.9 T/CUMM (4-12)
[2017-07-07] MEDS: PANTOPRAZOLE 40 MG TABLET PO SCH (18:58)
[2017-07-07 21:21] LABS: Hemoglobin 8.4 GM/DL (14.0-18.0)
[2017-07-07 21:45] LABS: Burr Cells Few; Platelet Estimate Normal; Poikilocytosis Slight
[2017-07-07] MEDS: ASCORBIC ACID 500 MG TABLET PO SCH (22:09)
[2017-07-07] MEDS: POTASSIUM CHLORIDE 20 MEQ TABLET PO SCH (22:10)
[2017-07-07] MEDS: ZALEPLON 5 MG CAPSULE PO PRN (23:06)
[2017-07-07] MEDS ORDERED: PROPOFOL 1,000 MG/100 ML BOTTLE IV ONE (23:34)
[2017-07-07] MEDS ORDERED: SODIUM CHLORIDE 0.9% 1,000 ML IV PRN (23:45)
[2017-07-08] MEDS ORDERED: diphenhydrAMINE CAP 25 MG CAPSULE PO ONE (06:00)
[2017-07-08] MEDS: LEVOTHYROXINE 75 MCG TABLET PO SCH (07:02)
[2017-07-08 08:46] LABS: Calcium 7.6 MG/DL (8.5-10.1); Magnesium 2.3 MG/DL (1.8-2.4); Osmolality,Calculated 298.3 MOS/KG (273-304); Potassium 4.5 MMOL/L (3.5-5.1)
[2017-07-08] MEDS ORDERED: ATORVASTATIN 80 MG TABLET PO SCH (09:00)
[2017-07-08] MEDS: LORATADINE 10 MG TABLET PO SCH (09:07)
[2017-07-08] MEDS: ASCORBIC ACID 500 MG TABLET PO SCH ×2 (09:07→21:27)
[2017-07-08] MEDS: predniSONE 20 MG TABLET PO SCH (09:07)
[2017-07-08] MEDS: POTASSIUM CHLORIDE 20 MEQ TABLET PO SCH ×2 (09:07→21:27)
[2017-07-08] MEDS: PANTOPRAZOLE 40 MG TABLET PO SCH (09:07)
[2017-07-08] MEDS: MAGNESIUM OXIDE 400 MG TABLET PO SCH (09:08)
[2017-07-08 10:30] LABS: Basophils % 0.1 % (0.0-0.8); Eosinophils # 0.3 10*3/uL (0.0-0.87); Eosinophils % 1.7 % (0.00-10.9); Hematocrit 27.5 VOL% (42.0-52.0); Hemoglobin 9.3 GM/DL (14.0-18.0); Immature Granulocytes % 0.9 %; Immature Granulocytes Absolute 0.14 #; Lymphocytes # 1.4 10*3/uL (1.4-4.0); Lymphocytes % 9.3 % (21.2-54.2); Mean Corpuscular HGB Conc 33.8 GM/DL (32-36); Mean Corpuscular Hemoglobin 30 PG (27-34); Mean Corpuscular Volume 87.6 FL (87-102); Mean Platelet Volume 11.8 FL (9.6-12.0); Monocytes # 1.4 10*3/uL (0.11-0.8); Monocytes % 8.9 % (1.7-12.7); Neutrophils # 12.1 10*3/uL (1.4-7.4); Neutrophils % 79.1 % (38.7-73.9); Platelet Count 123 T/CUMM (130-400); Red Blood Count 3.14 MC/CUMM (3.8-5.5); Red Cell Distribution Width 14.6 % (9.3-17.3); White Blood Count 15.2 T/CUMM (4-12)
[2017-07-08] MEDS ORDERED: ASPIRIN EC 81 MG TABLET PO SCH ×2 (11:30→12:00)
[2017-07-08 11:49] LABS: Basophils % 0.1 % (0.0-0.8); Eosinophils # 0.3 10*3/uL (0.0-0.87); Eosinophils % 1.9 % (0.00-10.9); Hematocrit 29.2 VOL% (42.0-52.0); Hemoglobin 9.8 GM/DL (14.0-18.0); Immature Granulocytes Absolute 0.15 #; Lymphocytes # 1.4 10*3/uL (1.4-4.0); Lymphocytes % 9.2 % (21.2-54.2); Mean Corpuscular HGB Conc 33.6 GM/DL (32-36); Mean Corpuscular Hemoglobin 30 PG (27-34); Mean Corpuscular Volume 89.8 FL (87-102); Mean Platelet Volume 12.5 FL (9.6-12.0); Monocytes # 1.3 10*3/uL (0.11-0.8); Monocytes % 8.8 % (1.7-12.7); Neutrophils # 11.8 10*3/uL (1.4-7.4); Platelet Count 119 T/CUMM (130-400); Red Blood Count 3.25 MC/CUMM (3.8-5.5); Red Cell Distribution Width 14.8 % (9.3-17.3); White Blood Count 14.9 T/CUMM (4-12)
[2017-07-08] MEDS: CARVEDILOL 6.25 MG TABLET PO SCH ×2 (12:09→21:27)
[2017-07-08] MEDS: SODIUM BICARB INJ 100 MEQ in SODIUM CHLORIDE 0.45% 1,000 ML IV SCH (15:15)
[2017-07-08 16:23] LABS: Basophils % 0.1 % (0.0-0.8); Eosinophils # 0.1 10*3/uL (0.0-0.87); Eosinophils % 0.6 % (0.00-10.9); Hematocrit 27.4 VOL% (42.0-52.0); Hemoglobin 9.2 GM/DL (14.0-18.0); Immature Granulocytes % 1.2 %; Immature Granulocytes Absolute 0.19 #; Lymphocytes # 0.7 10*3/uL (1.4-4.0); Lymphocytes % 4.3 % (21.2-54.2); Mean Corpuscular HGB Conc 33.6 GM/DL (32-36); Mean Corpuscular Hemoglobin 30 PG (27-34); Mean Corpuscular Volume 88.7 FL (87-102); Monocytes # 0.9 10*3/uL (0.11-0.8); Monocytes % 5.5 % (1.7-12.7); Neutrophils # 14.2 10*3/uL (1.4-7.4); Neutrophils % 88.3 % (38.7-73.9); Platelet Count 117 T/CUMM (130-400); Red Blood Count 3.09 MC/CUMM (3.8-5.5); Red Cell Distribution Width 14.8 % (9.3-17.3); White Blood Count 16.1 T/CUMM (4-12)
[2017-07-08 19:39] LABS: Lymphocytes 1 % (20-55); Platelet Estimate Decreased; Segmented Neutrophils 97 % (50-85); Total Cells Counted 100
[2017-07-08 19:40] LABS: Hypochromasia Slight
[2017-07-09] MEDS: SODIUM BICARB INJ 100 MEQ in SODIUM CHLORIDE 0.45% 1,000 ML IV SCH ×3 (04:48→23:27)
[2017-07-09 06:01] LABS: Eosinophils # 0.3 10*3/uL (0.0-0.87); Eosinophils % 1.7 % (0.00-10.9); Hematocrit 23.4 VOL% (42.0-52.0); Hemoglobin 7.9 GM/DL (14.0-18.0); Immature Granulocytes % 1.3 %; Immature Granulocytes Absolute 0.19 #; Lymphocytes # 1.2 10*3/uL (1.4-4.0); Mean Corpuscular HGB Conc 33.8 GM/DL (32-36); Mean Corpuscular Hemoglobin 30 PG (27-34); Mean Corpuscular Volume 87.6 FL (87-102); Mean Platelet Volume 12.1 FL (9.6-12.0); Monocytes # 1.5 10*3/uL (0.11-0.8); Monocytes % 9.9 % (1.7-12.7); Neutrophils # 11.7 10*3/uL (1.4-7.4); Neutrophils % 79.1 % (38.7-73.9); Platelet Count 128 T/CUMM (130-400); Red Blood Count 2.67 MC/CUMM (3.8-5.5); Red Cell Distribution Width 14.7 % (9.3-17.3); White Blood Count 14.8 T/CUMM (4-12)
[2017-07-09] MEDS: LEVOTHYROXINE 75 MCG TABLET PO SCH (06:26)
[2017-07-09 06:30] LABS: Calcium 7.8 MG/DL (8.5-10.1); Calcium 7.9 MG/DL (8.5-10.1); Magnesium 2.3 MG/DL (1.8-2.4); Osmolality,Calculated 295.5 MOS/KG (273-304); Osmolality,Calculated 299.3 MOS/KG (273-304); Potassium 4.5 MMOL/L (3.5-5.1)
[2017-07-09 07:09] LABS: Basophils % 0.1 % (0.0-0.8); Eosinophils # 0.3 10*3/uL (0.0-0.87); Eosinophils % 1.8 % (0.00-10.9); Hematocrit 24.5 VOL% (42.0-52.0); Hemoglobin 8.2 GM/DL (14.0-18.0); Immature Granulocytes % 1.3 %; Immature Granulocytes Absolute 0.21 #; Lymphocytes # 1.3 10*3/uL (1.4-4.0); Lymphocytes % 8.1 % (21.2-54.2); Mean Corpuscular HGB Conc 33.5 GM/DL (32-36); Mean Corpuscular Hemoglobin 30 PG (27-34); Mean Corpuscular Volume 88.8 FL (87-102); Mean Platelet Volume 12.1 FL (9.6-12.0); Monocytes # 1.6 10*3/uL (0.11-0.8); Neutrophils # 12.3 10*3/uL (1.4-7.4); Neutrophils % 78.7 % (38.7-73.9); Platelet Count 127 T/CUMM (130-400); Red Blood Count 2.76 MC/CUMM (3.8-5.5); Red Cell Distribution Width 14.8 % (9.3-17.3); White Blood Count 15.6 T/CUMM (4-12)
[2017-07-09] MEDS ORDERED: SODIUM CHLORIDE 0.9% 1,000 ML IV PRN (08:30)
[2017-07-09] MEDS: PANTOPRAZOLE 40 MG TABLET PO SCH (08:43)
[2017-07-09] MEDS: ASCORBIC ACID 500 MG TABLET PO SCH ×2 (08:43→21:42)
[2017-07-09] MEDS: POTASSIUM CHLORIDE 20 MEQ TABLET PO SCH ×2 (08:43→21:43)
[2017-07-09] MEDS: LORATADINE 10 MG TABLET PO SCH (08:44)
[2017-07-09] MEDS: predniSONE 20 MG TABLET PO SCH (08:44)
[2017-07-09] MEDS: MAGNESIUM OXIDE 400 MG TABLET PO SCH (08:44)
[2017-07-09] MEDS: CARVEDILOL 6.25 MG TABLET PO SCH ×2 (08:44→21:42)
[2017-07-09] MEDS: amLODIPine 5 MG TABLET PO SCH ×2 (08:44→08:45)
[2017-07-09] MEDS: NITROGLYCERIN 2% OINT 1 INCH/GM PACK TOP SCH ×2 (12:50→19:42)
[2017-07-09 14:04] LABS: Basophils % 0.1 % (0.0-0.8); Eosinophils # 0.2 10*3/uL (0.0-0.87); Immature Granulocytes % 1.1 %; Immature Granulocytes Absolute 0.17 #; Lymphocytes # 0.6 10*3/uL (1.4-4.0); Lymphocytes % 3.8 % (21.2-54.2); Mean Corpuscular HGB Conc 33.3 GM/DL (32-36); Mean Corpuscular Hemoglobin 29 PG (27-34); Mean Corpuscular Volume 88.2 FL (87-102); Mean Platelet Volume 11.8 FL (9.6-12.0); Monocytes # 0.9 10*3/uL (0.11-0.8); Monocytes % 5.9 % (1.7-12.7); Neutrophils % 88.1 % (38.7-73.9); Platelet Count 110 T/CUMM (130-400); Red Blood Count 3.06 MC/CUMM (3.8-5.5); Red Cell Distribution Width 14.6 % (9.3-17.3); White Blood Count 15.9 T/CUMM (4-12)
[2017-07-09 14:55] LABS: Platelet Estimate Adequate
[2017-07-09 14:56] LABS: Hypochromasia 1+; Microcytosis 1+
[2017-07-09] MEDS: ASPIRIN EC 81 MG TABLET PO SCH (19:49)
[2017-07-09] MEDS: ATORVASTATIN 80 MG TABLET PO SCH (21:43)
[2017-07-10 04:48] LABS: Basophils % 0.1 % (0.0-0.8); Eosinophils # 0.2 10*3/uL (0.0-0.87); Eosinophils % 1.4 % (0.00-10.9); Hemoglobin 8.4 GM/DL (14.0-18.0); Immature Granulocytes % 0.9 %; Immature Granulocytes Absolute 0.13 #; Lymphocytes # 1.2 10*3/uL (1.4-4.0); Lymphocytes % 8.8 % (21.2-54.2); Mean Corpuscular HGB Conc 33.6 GM/DL (32-36); Mean Corpuscular Hemoglobin 30 PG (27-34); Mean Corpuscular Volume 89.3 FL (87-102); Mean Platelet Volume 12.2 FL (9.6-12.0); Monocytes # 1.4 10*3/uL (0.11-0.8); Neutrophils # 11.1 10*3/uL (1.4-7.4); Neutrophils % 78.8 % (38.7-73.9); Platelet Count 117 T/CUMM (130-400); Red Cell Distribution Width 14.6 % (9.3-17.3)
[2017-07-10 06:24] LABS: Calcium 7.6 MG/DL (8.5-10.1); Magnesium 2.3 MG/DL (1.8-2.4); Osmolality,Calculated 298.3 MOS/KG (273-304); Potassium 4.8 MMOL/L (3.5-5.1)
[2017-07-10] MEDS: LEVOTHYROXINE 75 MCG TABLET PO SCH (06:55)
[2017-07-10] MEDS: NITROGLYCERIN 2% OINT 1 INCH/GM PACK TOP SCH (06:56)
[2017-07-10] MEDS: PANTOPRAZOLE 40 MG TABLET PO SCH (08:50)
[2017-07-10] MEDS: MAGNESIUM OXIDE 400 MG TABLET PO SCH (08:51)
[2017-07-10] MEDS: ASCORBIC ACID 500 MG TABLET PO SCH ×2 (08:52→21:16)
[2017-07-10] MEDS: LORATADINE 10 MG TABLET PO SCH (08:54)
[2017-07-10] MEDS: ASPIRIN EC 81 MG TABLET PO SCH (08:54)
[2017-07-10] MEDS: predniSONE 20 MG TABLET PO SCH (08:54)
[2017-07-10] MEDS: amLODIPine 5 MG TABLET PO SCH (08:55)
[2017-07-10] MEDS: POTASSIUM CHLORIDE 20 MEQ TABLET PO SCH ×2 (08:55→21:17)
[2017-07-10] MEDS: CARVEDILOL 12.5 MG TABLET PO SCH ×2 (09:00→21:16)
[2017-07-10] MEDS: TRIAMTERENE/HCTZ 37.5-25 MG TABLET PO SCH (09:03)
[2017-07-10] MEDS: SODIUM BICARB INJ 100 MEQ in SODIUM CHLORIDE 0.45% 1,000 ML IV SCH (17:39)
[2017-07-10] MEDS: ATORVASTATIN 80 MG TABLET PO SCH (21:16)
[2017-07-10] MEDS: ZALEPLON 5 MG CAPSULE PO PRN (21:16)
[2017-07-11] MEDS: SODIUM BICARB INJ 100 MEQ in SODIUM CHLORIDE 0.45% 1,000 ML IV SCH ×3 (02:30→18:49)
[2017-07-11 05:03] LABS: Basophils % 0.1 % (0.0-0.8); Eosinophils # 0.2 10*3/uL (0.0-0.87); Eosinophils % 1.6 % (0.00-10.9); Hematocrit 24.9 VOL% (42.0-52.0); Hemoglobin 8.2 GM/DL (14.0-18.0); Immature Granulocytes Absolute 0.12 #; Lymphocytes # 1.1 10*3/uL (1.4-4.0); Lymphocytes % 8.5 % (21.2-54.2); Mean Corpuscular HGB Conc 32.9 GM/DL (32-36); Mean Corpuscular Hemoglobin 30 PG (27-34); Mean Corpuscular Volume 90.5 FL (87-102); Mean Platelet Volume 11.8 FL (9.6-12.0); Monocytes # 1.2 10*3/uL (0.11-0.8); Monocytes % 9.5 % (1.7-12.7); Neutrophils # 9.9 10*3/uL (1.4-7.4); Neutrophils % 79.3 % (38.7-73.9); Platelet Count 143 T/CUMM (130-400); Red Blood Count 2.75 MC/CUMM (3.8-5.5); Red Cell Distribution Width 14.6 % (9.3-17.3); White Blood Count 12.5 T/CUMM (4-12)
[2017-07-11 05:20] LABS: Calcium 7.9 MG/DL (8.5-10.1); Magnesium 2.3 MG/DL (1.8-2.4); Osmolality,Calculated 298.1 MOS/KG (273-304); Potassium 4.8 MMOL/L (3.5-5.1)
[2017-07-11] MEDS: LEVOTHYROXINE 75 MCG TABLET PO SCH (06:15)
[2017-07-11] MEDS: TRIAMTERENE/HCTZ 37.5-25 MG TABLET PO SCH (09:14)
[2017-07-11] MEDS: MAGNESIUM OXIDE 400 MG TABLET PO SCH (09:14)
[2017-07-11] MEDS: CARVEDILOL 12.5 MG TABLET PO SCH ×2 (09:14→22:11)
[2017-07-11] MEDS: predniSONE 20 MG TABLET PO SCH (09:15)
[2017-07-11] MEDS: PANTOPRAZOLE 40 MG TABLET PO SCH (09:15)
[2017-07-11] MEDS: POTASSIUM CHLORIDE 20 MEQ TABLET PO SCH ×2 (09:15→22:10)
[2017-07-11] MEDS: ASCORBIC ACID 500 MG TABLET PO SCH ×2 (09:15→22:11)
[2017-07-11] MEDS: ASPIRIN EC 81 MG TABLET PO SCH (09:15)
[2017-07-11] MEDS: amLODIPine 5 MG TABLET PO SCH (09:15)
[2017-07-11] MEDS: LORATADINE 10 MG TABLET PO SCH (09:15)
[2017-07-11] MEDS: ATORVASTATIN 80 MG TABLET PO SCH (22:11)
[2017-07-11] MEDS: TICAGRELOR 90 MG TABLET PO SCH (22:11)
[2017-07-12 05:23] LABS: Basophils % 0.1 % (0.0-0.8); Eosinophils # 0.1 10*3/uL (0.0-0.87); Eosinophils % 1.1 % (0.00-10.9); Hematocrit 24.2 VOL% (42.0-52.0); Immature Granulocytes % 0.8 %; Lymphocytes # 0.9 10*3/uL (1.4-4.0); Lymphocytes % 7.4 % (21.2-54.2); Mean Corpuscular HGB Conc 33.1 GM/DL (32-36); Mean Corpuscular Hemoglobin 30 PG (27-34); Mean Corpuscular Volume 90.3 FL (87-102); Mean Platelet Volume 11.4 FL (9.6-12.0); Monocytes # 1.1 10*3/uL (0.11-0.8); Monocytes % 8.6 % (1.7-12.7); Platelet Count 163 T/CUMM (130-400); Red Blood Count 2.68 MC/CUMM (3.8-5.5); Red Cell Distribution Width 14.7 % (9.3-17.3); White Blood Count 12.2 T/CUMM (4-12)
[2017-07-12 05:45] LABS: Calcium 8.1 MG/DL (8.5-10.1); Magnesium 2.4 MG/DL (1.8-2.4); Potassium 4.8 MMOL/L (3.5-5.1)
[2017-07-12] MEDS: LEVOTHYROXINE 75 MCG TABLET PO SCH (06:52)
[2017-07-12] MEDS: amLODIPine 5 MG TABLET PO SCH (09:37)
[2017-07-12] MEDS: TRIAMTERENE/HCTZ 37.5-25 MG TABLET PO SCH (09:37)
[2017-07-12] MEDS: ASCORBIC ACID 500 MG TABLET PO SCH ×2 (09:37→21:31)
[2017-07-12] MEDS: predniSONE 20 MG TABLET PO SCH (09:37)
[2017-07-12] MEDS: CARVEDILOL 12.5 MG TABLET PO SCH (09:37)
[2017-07-12] MEDS: POTASSIUM CHLORIDE 20 MEQ TABLET PO SCH (09:37)
[2017-07-12] MEDS: ASPIRIN EC 81 MG TABLET PO SCH (09:37)
[2017-07-12] MEDS: LORATADINE 10 MG TABLET PO SCH (09:37)
[2017-07-12] MEDS: TICAGRELOR 90 MG TABLET PO SCH ×2 (09:37→21:31)
[2017-07-12] MEDS: MAGNESIUM OXIDE 400 MG TABLET PO SCH (09:37)
[2017-07-12] MEDS: PANTOPRAZOLE 40 MG TABLET PO SCH (09:37)
[2017-07-12] MEDS: SODIUM BICARB INJ 100 MEQ in SODIUM CHLORIDE 0.45% 1,000 ML IV SCH (10:22)
[2017-07-12] MEDS ORDERED: FUROSEMIDE 40 MG/4 ML VIAL IV ONE (11:16)
[2017-07-12 12:49] LABS: Apearance,Urine CLEAR (Clear); Bilirubin,Urine Negative (Negative); Blood, Urine Negative (Negative); Glucose,Urine (UA) Negative (Negative); Ketones,Urine Negative (Negative); Nitrite,Urine Negative (Negative); Protein,Urine Negative; RBC,Urine 2 /HPF (0-4); Urine Color Yellow (Yellow); Urine Specific Gravity 1.016 (1.001-1.035); Urine Urobilinogen < 2.0 EU/DL (0.2-1.0); WBC,Urine 1 /HPF (0-6)
[2017-07-12] MEDS ORDERED: guaiFENesin/DM ER 600-30 MG TABLET PO PRN (16:30)
[2017-07-12] MEDS ORDERED: diphenhydrAMINE CAP 25 MG CAPSULE PO PRN (16:30)
[2017-07-12] MEDS: FUROSEMIDE 40 MG/4 ML VIAL IV SCH (17:43)
[2017-07-12] MEDS: CARVEDILOL 6.25 MG TABLET PO SCH (21:31)
[2017-07-12] MEDS: ATORVASTATIN 80 MG TABLET PO SCH (21:31)
[2017-07-12] MEDS: ZALEPLON 5 MG CAPSULE PO PRN (21:40)
[2017-07-13 04:54] LABS: Basophils % 0.1 % (0.0-0.8); Eosinophils # 0.1 10*3/uL (0.0-0.87); Eosinophils % 0.7 % (0.00-10.9); Hematocrit 25.6 VOL% (42.0-52.0); Hemoglobin 8.2 GM/DL (14.0-18.0); Immature Granulocytes % 0.7 %; Immature Granulocytes Absolute 0.09 #; Lymphocytes # 0.8 10*3/uL (1.4-4.0); Lymphocytes % 5.8 % (21.2-54.2); Mean Corpuscular Hemoglobin 30 PG (27-34); Mean Corpuscular Volume 92.4 FL (87-102); Mean Platelet Volume 12.1 FL (9.6-12.0); Monocytes # 1.1 10*3/uL (0.11-0.8); Monocytes % 7.8 % (1.7-12.7); Neutrophils # 11.5 10*3/uL (1.4-7.4); Neutrophils % 84.9 % (38.7-73.9); Platelet Count 180 T/CUMM (130-400); Red Blood Count 2.77 MC/CUMM (3.8-5.5); Red Cell Distribution Width 15.1 % (9.3-17.3); White Blood Count 13.5 T/CUMM (4-12)
[2017-07-13 05:42] LABS: Calcium 8.5 MG/DL (8.5-10.1); Magnesium 2.4 MG/DL (1.8-2.4); Osmolality,Calculated 297.3 MOS/KG (273-304); Potassium 4.7 MMOL/L (3.5-5.1)
[2017-07-13] MEDS: LEVOTHYROXINE 75 MCG TABLET PO SCH (06:27)
[2017-07-13] MEDS: TICAGRELOR 90 MG TABLET PO SCH ×2 (09:31→21:36)
[2017-07-13] MEDS: POTASSIUM CHLORIDE 20 MEQ TABLET PO SCH (09:31)
[2017-07-13] MEDS: LORATADINE 10 MG TABLET PO SCH (09:31)
[2017-07-13] MEDS: PANTOPRAZOLE 40 MG TABLET PO SCH (09:31)
[2017-07-13] MEDS: MAGNESIUM OXIDE 400 MG TABLET PO SCH (09:31)
[2017-07-13] MEDS: LOSARTAN 25 MG TABLET PO SCH (09:32)
[2017-07-13] MEDS: ASPIRIN EC 81 MG TABLET PO SCH (09:32)
[2017-07-13] MEDS: ASCORBIC ACID 500 MG TABLET PO SCH ×2 (09:32→21:36)
[2017-07-13] MEDS: SPIRONOLACTONE 25 MG TABLET PO SCH (09:32)
[2017-07-13] MEDS: FUROSEMIDE 40 MG/4 ML VIAL IV SCH ×2 (09:32→16:23)
[2017-07-13] MEDS: CARVEDILOL 6.25 MG TABLET PO SCH (09:34)
[2017-07-13] MEDS: predniSONE 20 MG TABLET PO SCH (09:36)
[2017-07-13] MEDS: ALBUTEROL/IPRATROPIUM 3 ML NEB RESP TX SCH (21:15)
[2017-07-13] MEDS: ZALEPLON 5 MG CAPSULE PO PRN (21:36)
[2017-07-13] MEDS: CARVEDILOL 3.125 MG TABLET PO SCH (21:36)
[2017-07-13] MEDS: ATORVASTATIN 80 MG TABLET PO SCH (21:36)
[2017-07-14] MEDS: ALBUTEROL/IPRATROPIUM 3 ML NEB RESP TX SCH ×4 (00:29→21:25)
[2017-07-14 06:15] LABS: Basophils % 0.1 % (0.0-0.8); Eosinophils # 0.1 10*3/uL (0.0-0.87); Eosinophils % 0.6 % (0.00-10.9); Hematocrit 27.4 VOL% (42.0-52.0); Immature Granulocytes % 0.8 %; Immature Granulocytes Absolute 0.12 #; Lymphocytes # 0.8 10*3/uL (1.4-4.0); Lymphocytes % 4.9 % (21.2-54.2); Mean Corpuscular HGB Conc 32.8 GM/DL (32-36); Mean Corpuscular Hemoglobin 30 PG (27-34); Mean Corpuscular Volume 91.6 FL (87-102); Mean Platelet Volume 11.9 FL (9.6-12.0); Monocytes # 0.9 10*3/uL (0.11-0.8); Monocytes % 5.5 % (1.7-12.7); Neutrophils # 13.7 10*3/uL (1.4-7.4); Neutrophils % 88.1 % (38.7-73.9); Platelet Count 216 T/CUMM (130-400); Red Blood Count 2.99 MC/CUMM (3.8-5.5); Red Cell Distribution Width 15.4 % (9.3-17.3); White Blood Count 15.6 T/CUMM (4-12)
[2017-07-14 06:37] LABS: Calcium 8.7 MG/DL (8.5-10.1); Magnesium 2.2 MG/DL (1.8-2.4); Osmolality,Calculated 295.3 MOS/KG (273-304); Potassium 4.6 MMOL/L (3.5-5.1)
[2017-07-14 06:39] LABS: Hypochromasia 1+; Lymphocytes 5 % (20-55); Segmented Neutrophils 90 % (50-85); Total Cells Counted 100
[2017-07-14 06:40] LABS: Microcytosis Slight
[2017-07-14] MEDS: MAGNESIUM OXIDE 400 MG TABLET PO SCH (09:40)
[2017-07-14] MEDS: ASCORBIC ACID 500 MG TABLET PO SCH ×2 (09:40→21:44)
[2017-07-14] MEDS: TICAGRELOR 90 MG TABLET PO SCH ×2 (09:40→21:45)
[2017-07-14] MEDS: ASPIRIN EC 81 MG TABLET PO SCH (09:41)
[2017-07-14] MEDS: CARVEDILOL 3.125 MG TABLET PO SCH ×2 (09:41→21:45)
[2017-07-14] MEDS: SPIRONOLACTONE 25 MG TABLET PO SCH (09:41)
[2017-07-14] MEDS: POTASSIUM CHLORIDE 20 MEQ TABLET PO SCH (09:41)
[2017-07-14] MEDS: LORATADINE 10 MG TABLET PO SCH (09:41)
[2017-07-14] MEDS: FUROSEMIDE 40 MG/4 ML VIAL IV SCH ×2 (09:41→16:44)
[2017-07-14] MEDS: predniSONE 20 MG TABLET PO SCH (09:41)
[2017-07-14] MEDS: LEVOTHYROXINE 75 MCG TABLET PO SCH (09:41)
[2017-07-14] MEDS: PANTOPRAZOLE 40 MG TABLET PO SCH (09:41)
[2017-07-14] MEDS: LOSARTAN 25 MG TABLET PO SCH (09:41)
[2017-07-14] MEDS: ZALEPLON 5 MG CAPSULE PO PRN (21:43)
[2017-07-14] MEDS: ATORVASTATIN 80 MG TABLET PO SCH (21:45)
[2017-07-15] MEDS: ALBUTEROL/IPRATROPIUM 3 ML NEB RESP TX SCH ×2 (01:43→07:41)
[2017-07-15] MEDS: LEVOTHYROXINE 75 MCG TABLET PO SCH (05:55)
[2017-07-15 07:00] LABS: Basophils % 0.2 % (0.0-0.8); Eosinophils # 0.1 10*3/uL (0.0-0.87); Eosinophils % 1.1 % (0.00-10.9); Hematocrit 25.6 VOL% (42.0-52.0); Hemoglobin 8.4 GM/DL (14.0-18.0); Immature Granulocytes % 0.7 %; Immature Granulocytes Absolute 0.08 #; Lymphocytes # 0.7 10*3/uL (1.4-4.0); Lymphocytes % 6.1 % (21.2-54.2); Mean Corpuscular HGB Conc 32.8 GM/DL (32-36); Mean Corpuscular Hemoglobin 30 PG (27-34); Mean Corpuscular Volume 90.8 FL (87-102); Mean Platelet Volume 11.8 FL (9.6-12.0); Monocytes # 0.7 10*3/uL (0.11-0.8); Monocytes % 5.9 % (1.7-12.7); Neutrophils # 9.8 10*3/uL (1.4-7.4); Platelet Count 215 T/CUMM (130-400); Red Blood Count 2.82 MC/CUMM (3.8-5.5); Red Cell Distribution Width 15.3 % (9.3-17.3); White Blood Count 11.4 T/CUMM (4-12)
[2017-07-15 07:29] LABS: Calcium 8.4 MG/DL (8.5-10.1); Magnesium 2.2 MG/DL (1.8-2.4); Osmolality,Calculated 291.4 MOS/KG (273-304); Potassium 4.1 MMOL/L (3.5-5.1)
[2017-07-15 07:40] LABS: Calcium 8.2 MG/DL (8.5-10.1); Osmolality,Calculated 289.5 MOS/KG (273-304); Potassium 4.1 MMOL/L (3.5-5.1)
[2017-07-15 08:01] VITALS: BP 111/54
[2017-07-15] MEDS: TICAGRELOR 90 MG TABLET PO SCH (09:00)
[2017-07-15] MEDS ORDERED: FUROSEMIDE 40 MG TABLET PO SCH (09:00)
[2017-07-15] MEDS: SPIRONOLACTONE 25 MG TABLET PO SCH (09:00)
[2017-07-15] MEDS: MAGNESIUM OXIDE 400 MG TABLET PO SCH (09:00)
[2017-07-15] MEDS: LORATADINE 10 MG TABLET PO SCH (09:01)
[2017-07-15] MEDS: ASCORBIC ACID 500 MG TABLET PO SCH (09:01)
[2017-07-15] MEDS: predniSONE 20 MG TABLET PO SCH (09:01)
[2017-07-15] MEDS: POTASSIUM CHLORIDE 20 MEQ TABLET PO SCH (09:01)
[2017-07-15] MEDS: CARVEDILOL 3.125 MG TABLET PO SCH (09:01)
[2017-07-15] MEDS: PANTOPRAZOLE 40 MG TABLET PO SCH (09:01)
[2017-07-15] MEDS: ASPIRIN EC 81 MG TABLET PO SCH (09:01)
[2017-07-15] MEDS: LOSARTAN 25 MG TABLET PO SCH (09:02)
== END 2017-07-15 12:20 | disposition home or self-care (01) | DRG 280 ==
LOC: EDBD → EDUNIT# → N.ED 12:45 → SUPCPDRO 14:36 → N.EDINP 14:36 → N.ICU 15:00 → N.TELES 07-10 14:55
PROVIDERS: ADMIT Internal Medicine Cardiovascular Disease; ATTEND Internal Medicine Cardiovascular Disease

== ENCOUNTER 2017-08-05 13:20 | Inpatient (IN) ==
[2017-08-05] MEDS ORDERED: SODIUM CHLORIDE 0.9% 500 ML IV STA (14:07)
[2017-08-05] MEDS ORDERED: DILTIAZEM 50 MG/10 ML VIAL IV STA (14:07)
[2017-08-05] MEDS ORDERED: DILTIAZEM 100 MG VIAL.ADD IV ONE (14:20)
[2017-08-05] MEDS ORDERED: DILTIAZEM 50 MG/10 ML VIAL IV ONE (14:20)
[2017-08-05 14:22] LABS: Basophils % 0.6 % (0.0-0.8); Eosinophils # 0.1 10*3/uL (0.0-0.87); Eosinophils % 2.1 % (0.00-10.9); Hematocrit 34.2 VOL% (42.0-52.0); Hemoglobin 10.7 GM/DL (14.0-18.0); Immature Granulocytes % 0.8 %; Immature Granulocytes Absolute 0.05 #; Lymphocytes # 0.9 10*3/uL (1.4-4.0); Lymphocytes % 13.4 % (21.2-54.2); Mean Corpuscular HGB Conc 31.3 GM/DL (32-36); Mean Corpuscular Hemoglobin 30 PG (27-34); Mean Corpuscular Volume 95.8 FL (87-102); Mean Platelet Volume 11.8 FL (9.6-12.0); Monocytes # 0.6 10*3/uL (0.11-0.8); Monocytes % 9.2 % (1.7-12.7); Neutrophils # 4.8 10*3/uL (1.4-7.4); Neutrophils % 73.9 % (38.7-73.9); Platelet Count 188 T/CUMM (130-400); Red Blood Count 3.57 MC/CUMM (3.8-5.5); Red Cell Distribution Width 17.3 % (9.3-17.3); White Blood Count 6.6 T/CUMM (4-12)
[2017-08-05 14:32] LABS: INR 1.1; PT Patient Result 11.4 SECS; Partial Thromboplastin Time 24.3 SECS (0-40)
[2017-08-05] MEDS: DILTIAZEM INJ 100 MG in SODIUM CHLORIDE 0.9% 100 ML IV SCH (14:35)
[2017-08-05 14:51] LABS: Albumin 2.9 G/DL (3.4-5.0); Calcium 8.5 MG/DL (8.5-10.1); Osmolality,Calculated 291.1 MOS/KG (273-304); Potassium 3.6 MMOL/L (3.5-5.1); Thyroid Stimulating Hormone 15.5 uIU/ml (0.358-3.74); Total Protein 6.5 G/DL (6.4-8.3)
[2017-08-05 14:53] LABS: Troponin I Only 0.076 NG/ML (0.00-0.045)
[2017-08-05 15:11] LABS: Barbiturates Screen,Urine Negative (Negative); Benzodiazepines Screen,Urine Negative (Negative); Cannabinoid Screen,Urine Negative (Negative); Opiate Screen,Urine Negative (Negative); Phencyclidine Screen,Urine Negative (Negative)
[2017-08-05] MEDS ORDERED: ONDANSETRON 4 MG/2 ML VIAL IV PRN (15:55)
[2017-08-05] MEDS ORDERED: BISACODYL 5 MG TABLET PO PRN (15:55)
[2017-08-05] MEDS ORDERED: MAGNESIUM SULF RIDER 4 GM in PREMIX 1 EACH IV PRN (15:55)
[2017-08-05] MEDS ORDERED: ACETAMINOPHEN 325 MG TABLET PO PRN (15:55)
[2017-08-05 20:19] LABS: Troponin I Only 0.059 NG/ML (0.00-0.045)
[2017-08-05] MEDS ORDERED: FUROSEMIDE 40 MG/4 ML VIAL IV SCH (21:00)
[2017-08-05] MEDS: FUROSEMIDE 40 MG/4 ML VIAL IV SCH (21:26)
[2017-08-05] MEDS: AMIODARONE 200 MG TABLET PO SCH (21:27)
[2017-08-05] MEDS: ASCORBIC ACID 500 MG TABLET PO SCH (21:27)
[2017-08-05] MEDS: POTASSIUM CHLORIDE 20 MEQ TABLET PO SCH (21:27)
[2017-08-05] MEDS: CARVEDILOL 3.125 MG TABLET PO SCH (21:27)
[2017-08-05] MEDS: ENOXAPARIN 100 MG/ML SYRINGE SUBCUT SCH (21:27)
[2017-08-05] MEDS: ATORVASTATIN 80 MG TABLET PO SCH (21:27)
[2017-08-05] MEDS: TICAGRELOR 90 MG TABLET PO SCH (21:28)
[2017-08-05] MEDS: ZALEPLON 5 MG CAPSULE PO PRN (21:35)
[2017-08-05 22:52] LABS: Troponin I Only 0.072 NG/ML (0.00-0.045)
[2017-08-06 00:27] LABS: Apearance,Urine CLEAR (Clear); Bilirubin,Urine Negative (Negative); Blood, Urine Small mg/dL (Negative); Glucose,Urine (UA) Negative (Negative); Hyaline Casts,Urine 10 /LPF (0-3); Ketones,Urine Negative (Negative); Nitrite,Urine Negative (Negative); Protein,Urine Negative; RBC,Urine <1 /HPF (0-4); Urine Color Yellow (Yellow); Urine Specific Gravity 1.006 (1.001-1.035); Urine Urobilinogen < 2.0 EU/DL (0.2-1.0); WBC,Urine 1 /HPF (0-6)
[2017-08-06 02:10] LABS: Basophils % 0.6 % (0.0-0.8); Eosinophils # 0.2 10*3/uL (0.0-0.87); Eosinophils % 2.7 % (0.00-10.9); Hematocrit 30.5 VOL% (42.0-52.0); Hemoglobin 9.9 GM/DL (14.0-18.0); Immature Granulocytes % 0.9 %; Immature Granulocytes Absolute 0.06 #; Lymphocytes # 1.4 10*3/uL (1.4-4.0); Lymphocytes % 21.9 % (21.2-54.2); Mean Corpuscular HGB Conc 32.5 GM/DL (32-36); Mean Corpuscular Hemoglobin 31 PG (27-34); Mean Corpuscular Volume 94.4 FL (87-102); Monocytes # 0.6 10*3/uL (0.11-0.8); Monocytes % 10.1 % (1.7-12.7); Neutrophils % 63.8 % (38.7-73.9); Platelet Count 166 T/CUMM (130-400); Red Blood Count 3.23 MC/CUMM (3.8-5.5); Red Cell Distribution Width 17.3 % (9.3-17.3); White Blood Count 6.3 T/CUMM (4-12)
[2017-08-06 02:35] LABS: Calcium 7.4 MG/DL (8.5-10.1); Osmolality,Calculated 296.7 MOS/KG (273-304); Potassium 3.4 MMOL/L (3.5-5.1); Risk Ratio 2.68; VLDL CHOLESTEROL 17.2 MG/DL
[2017-08-06 02:37] LABS: Troponin I Only 0.071 NG/ML (0.00-0.045)
[2017-08-06] MEDS: DILTIAZEM INJ 100 MG in SODIUM CHLORIDE 0.9% 100 ML IV SCH ×2 (03:42→18:07)
[2017-08-06] MEDS: LEVOTHYROXINE 75 MCG TABLET PO SCH (06:29)
[2017-08-06] MEDS: POTASSIUM CHLORIDE 20 MEQ TABLET PO PRN ×3 (06:29→14:51)
[2017-08-06] MEDS: MAGNESIUM SULF RIDER 2 GM in PREMIX 1 EACH IV PRN (06:46)
[2017-08-06] MEDS: PANTOPRAZOLE 40 MG TABLET PO SCH (08:53)
[2017-08-06] MEDS: ISOSORBIDE MONONITRATE 20 MG TABLET PO SCH (08:53)
[2017-08-06] MEDS: MAGNESIUM OXIDE 400 MG TABLET PO SCH (08:54)
[2017-08-06] MEDS: LORATADINE 10 MG TABLET PO SCH (08:54)
[2017-08-06] MEDS: ASCORBIC ACID 500 MG TABLET PO SCH ×2 (08:54→21:26)
[2017-08-06] MEDS: POTASSIUM CHLORIDE 20 MEQ TABLET PO SCH ×2 (08:55→21:26)
[2017-08-06] MEDS: AMIODARONE 200 MG TABLET PO SCH ×2 (08:55→21:27)
[2017-08-06] MEDS: TICAGRELOR 90 MG TABLET PO SCH ×2 (08:55→21:26)
[2017-08-06] MEDS: ASPIRIN EC 81 MG TABLET PO SCH (08:55)
[2017-08-06] MEDS: CARVEDILOL 3.125 MG TABLET PO SCH ×2 (08:55→21:27)
[2017-08-06] MEDS: FUROSEMIDE 40 MG/4 ML VIAL IV SCH ×2 (08:55→21:24)
[2017-08-06] MEDS: DILTIAZEM 60 MG TABLET PO SCH ×2 (14:51→21:27)
[2017-08-06] MEDS: DESITIN 4OZ/NYSTATIN 15 GRAM MIXTURE PASTE TOP SCH ×2 (14:52→21:31)
[2017-08-06] MEDS: ATORVASTATIN 80 MG TABLET PO SCH (21:27)
[2017-08-06] MEDS: ZALEPLON 5 MG CAPSULE PO PRN (21:27)
[2017-08-06] MEDS: ENOXAPARIN 100 MG/ML SYRINGE SUBCUT SCH (21:27)
[2017-08-07 04:43] LABS: Basophils % 0.4 % (0.0-0.8); Eosinophils # 0.2 10*3/uL (0.0-0.87); Eosinophils % 2.2 % (0.00-10.9); Hematocrit 31.2 VOL% (42.0-52.0); Immature Granulocytes % 0.7 %; Immature Granulocytes Absolute 0.05 #; Lymphocytes # 0.9 10*3/uL (1.4-4.0); Lymphocytes % 12.2 % (21.2-54.2); Mean Corpuscular HGB Conc 32.1 GM/DL (32-36); Mean Corpuscular Hemoglobin 30 PG (27-34); Mean Corpuscular Volume 94.3 FL (87-102); Mean Platelet Volume 12.2 FL (9.6-12.0); Monocytes # 0.7 10*3/uL (0.11-0.8); Monocytes % 9.2 % (1.7-12.7); Neutrophils # 5.5 10*3/uL (1.4-7.4); Neutrophils % 75.3 % (38.7-73.9); Platelet Count 168 T/CUMM (130-400); Red Blood Count 3.31 MC/CUMM (3.8-5.5); Red Cell Distribution Width 17.3 % (9.3-17.3); White Blood Count 7.3 T/CUMM (4-12)
[2017-08-07 05:32] LABS: Osmolality,Calculated 291.1 MOS/KG (273-304); Potassium 4.6 MMOL/L (3.5-5.1)
[2017-08-07] MEDS: LEVOTHYROXINE 75 MCG TABLET PO SCH (06:01)
[2017-08-07] MEDS: ISOSORBIDE MONONITRATE 20 MG TABLET PO SCH (08:31)
[2017-08-07] MEDS: AMIODARONE 200 MG TABLET PO SCH ×2 (08:31→21:41)
[2017-08-07] MEDS: DILTIAZEM 60 MG TABLET PO SCH ×3 (08:31→21:40)
[2017-08-07] MEDS: ASCORBIC ACID 500 MG TABLET PO SCH ×2 (08:31→21:41)
[2017-08-07] MEDS: LORATADINE 10 MG TABLET PO SCH (08:32)
[2017-08-07] MEDS: DESITIN 4OZ/NYSTATIN 15 GRAM MIXTURE PASTE TOP SCH ×2 (08:32→21:41)
[2017-08-07] MEDS: TICAGRELOR 90 MG TABLET PO SCH ×2 (08:32→21:40)
[2017-08-07] MEDS: POTASSIUM CHLORIDE 20 MEQ TABLET PO SCH ×2 (08:32→21:40)
[2017-08-07] MEDS: ASPIRIN EC 81 MG TABLET PO SCH (08:32)
[2017-08-07] MEDS: MAGNESIUM OXIDE 400 MG TABLET PO SCH (08:32)
[2017-08-07] MEDS: CARVEDILOL 3.125 MG TABLET PO SCH (08:32)
[2017-08-07] MEDS: PANTOPRAZOLE 40 MG TABLET PO SCH (08:32)
[2017-08-07] MEDS: FUROSEMIDE 40 MG/4 ML VIAL IV SCH ×2 (08:33→21:41)
[2017-08-07] MEDS: ATORVASTATIN 80 MG TABLET PO SCH (21:40)
[2017-08-07] MEDS: ENOXAPARIN 100 MG/ML SYRINGE SUBCUT SCH (21:40)
[2017-08-07] MEDS: ZALEPLON 5 MG CAPSULE PO PRN (21:40)
[2017-08-07] MEDS: CARVEDILOL 6.25 MG TABLET PO SCH (21:40)
[2017-08-08] MEDS: ALBUTEROL/IPRATROPIUM 3 ML NEB RESP TX PRN ×2 (03:32→17:34)
[2017-08-08 05:01] LABS: Basophils % 0.3 % (0.0-0.8); Eosinophils # 0.1 10*3/uL (0.0-0.87); Eosinophils % 2.1 % (0.00-10.9); Hematocrit 31.9 VOL% (42.0-52.0); Hemoglobin 9.9 GM/DL (14.0-18.0); Immature Granulocytes % 0.6 %; Immature Granulocytes Absolute 0.04 #; Lymphocytes # 0.7 10*3/uL (1.4-4.0); Lymphocytes % 9.9 % (21.2-54.2); Mean Corpuscular Hemoglobin 30 PG (27-34); Mean Corpuscular Volume 96.7 FL (87-102); Mean Platelet Volume 12.2 FL (9.6-12.0); Monocytes # 0.6 10*3/uL (0.11-0.8); Monocytes % 8.8 % (1.7-12.7); Neutrophils # 5.3 10*3/uL (1.4-7.4); Neutrophils % 78.3 % (38.7-73.9); Platelet Count 160 T/CUMM (130-400); Red Cell Distribution Width 17.3 % (9.3-17.3); White Blood Count 6.8 T/CUMM (4-12)
[2017-08-08] MEDS: LEVOTHYROXINE 75 MCG TABLET PO SCH (05:31)
[2017-08-08 05:39] LABS: Calcium 8.3 MG/DL (8.5-10.1)
[2017-08-08 05:40] LABS: Osmolality,Calculated 291.1 MOS/KG (273-304); Potassium 3.9 MMOL/L (3.5-5.1)
[2017-08-08] MEDS: ASCORBIC ACID 500 MG TABLET PO SCH ×2 (08:23→22:29)
[2017-08-08] MEDS: TICAGRELOR 90 MG TABLET PO SCH ×2 (08:23→22:29)
[2017-08-08] MEDS: ASPIRIN EC 81 MG TABLET PO SCH (08:24)
[2017-08-08] MEDS: POTASSIUM CHLORIDE 20 MEQ TABLET PO SCH ×2 (08:24→22:29)
[2017-08-08] MEDS: LORATADINE 10 MG TABLET PO SCH (08:24)
[2017-08-08] MEDS: MAGNESIUM OXIDE 400 MG TABLET PO SCH (08:24)
[2017-08-08] MEDS: PANTOPRAZOLE 40 MG TABLET PO SCH (08:24)
[2017-08-08] MEDS: DILTIAZEM 60 MG TABLET PO SCH ×2 (08:24→14:51)
[2017-08-08] MEDS: AMIODARONE 200 MG TABLET PO SCH ×2 (08:24→22:30)
[2017-08-08] MEDS: CARVEDILOL 6.25 MG TABLET PO SCH (08:24)
[2017-08-08] MEDS: ISOSORBIDE MONONITRATE 20 MG TABLET PO SCH (08:25)
[2017-08-08] MEDS: FUROSEMIDE 40 MG/4 ML VIAL IV SCH (08:29)
[2017-08-08] MEDS: DESITIN 4OZ/NYSTATIN 15 GRAM MIXTURE PASTE TOP SCH ×2 (09:20→21:00)
[2017-08-08] MEDS: ALBUTEROL/IPRATROPIUM 3 ML NEB RESP TX SCH (17:34)
[2017-08-08] MEDS ORDERED: BISOPROLOL 5 MG TABLET PO SCH (17:58)
[2017-08-08] MEDS ORDERED: DILTIAZEM 50 MG/10 ML VIAL IV ONE ×2 (17:58→18:02)
[2017-08-08] MEDS: AMPICILLIN/SULBACTAM 3,000 MG in SODIUM CHLORIDE 0.9% 100 ML IV SCH (18:49)
[2017-08-08] MEDS ORDERED: DILTIAZEM 100 MG VIAL.ADD IV ONE (19:04)
[2017-08-08] MEDS ORDERED: niCARdipine INJ 25 MG in SODIUM CHLORIDE 0.9% 240 ML IV SCH (19:30)
[2017-08-08] MEDS: BISOPROLOL 5 MG TABLET PO SCH (20:47)
[2017-08-08] MEDS: ATORVASTATIN 80 MG TABLET PO SCH (22:30)
[2017-08-08] MEDS: ENOXAPARIN 100 MG/ML SYRINGE SUBCUT SCH (22:30)
[2017-08-09] MEDS: DILTIAZEM 60 MG TABLET PO SCH ×4 (00:09→22:38)
[2017-08-09] MEDS: FUROSEMIDE 40 MG/4 ML VIAL IV SCH ×2 (00:10→08:42)
[2017-08-09] MEDS: AMPICILLIN/SULBACTAM 3,000 MG in SODIUM CHLORIDE 0.9% 100 ML IV SCH ×4 (00:48→17:48)
[2017-08-09 03:00] LABS: Calcium 7.6 MG/DL (8.5-10.1)
[2017-08-09 03:01] LABS: Osmolality,Calculated 288.5 MOS/KG (273-304); Potassium 4.2 MMOL/L (3.5-5.1)
[2017-08-09 03:03] LABS: Basophils % 0.2 % (0.0-0.8); Eosinophils % 0.2 % (0.00-10.9); Hematocrit 33.6 VOL% (42.0-52.0); Hemoglobin 10.1 GM/DL (14.0-18.0); Immature Granulocytes % 0.6 %; Immature Granulocytes Absolute 0.08 #; Lymphocytes # 0.6 10*3/uL (1.4-4.0); Mean Corpuscular HGB Conc 30.1 GM/DL (32-36); Mean Corpuscular Hemoglobin 31 PG (27-34); Mean Corpuscular Volume 101.8 FL (87-102); Mean Platelet Volume 12.2 FL (9.6-12.0); Monocytes # 0.8 10*3/uL (0.11-0.8); Monocytes % 6.2 % (1.7-12.7); NRBC # 0.04 10*3/uL; Neutrophils # 11.4 10*3/uL (1.4-7.4); Neutrophils % 87.8 % (38.7-73.9); Platelet Count 137 T/CUMM (130-400); Red Cell Distribution Width 17.5 % (9.3-17.3); White Blood Count 12.9 T/CUMM (4-12)
[2017-08-09 04:23] LABS: Band Neutrophils 6 % (0-10); Lymphocytes 3 % (20-55); Segmented Neutrophils 87 % (50-85); Total Cells Counted 100
[2017-08-09 04:25] LABS: Elliptocytes 1+; Ovalocytes 1+; Platelet Estimate Normal
[2017-08-09] MEDS: LEVOTHYROXINE 75 MCG TABLET PO SCH (06:23)
[2017-08-09] MEDS: ALBUTEROL/IPRATROPIUM 3 ML NEB RESP TX SCH ×3 (07:33→20:08)
[2017-08-09] MEDS: POTASSIUM CHLORIDE 20 MEQ TABLET PO SCH ×2 (08:38→21:04)
[2017-08-09] MEDS: MAGNESIUM OXIDE 400 MG TABLET PO SCH (08:40)
[2017-08-09] MEDS: ASCORBIC ACID 500 MG TABLET PO SCH ×2 (08:40→21:04)
[2017-08-09] MEDS: TICAGRELOR 90 MG TABLET PO SCH ×2 (08:40→21:04)
[2017-08-09] MEDS: ASPIRIN EC 81 MG TABLET PO SCH (08:40)
[2017-08-09] MEDS: PANTOPRAZOLE 40 MG TABLET PO SCH (08:40)
[2017-08-09] MEDS: LORATADINE 10 MG TABLET PO SCH (08:41)
[2017-08-09] MEDS: MAGNESIUM SULF RIDER 2 GM in PREMIX 1 EACH IV PRN (08:41)
[2017-08-09] MEDS: ISOSORBIDE MONONITRATE 20 MG TABLET PO SCH (08:42)
[2017-08-09] MEDS: AMIODARONE 200 MG TABLET PO SCH ×2 (08:42→22:39)
[2017-08-09] MEDS: BISOPROLOL 5 MG TABLET PO SCH ×2 (08:43→22:39)
[2017-08-09] MEDS: DESITIN 4OZ/NYSTATIN 15 GRAM MIXTURE PASTE TOP SCH ×2 (08:43→22:39)
[2017-08-09] MEDS ORDERED: BISACODYL 10 MG SUPP RECTAL ONE (10:56)
[2017-08-09 11:20] LABS: ABG Base Excess 4.9 MMOL/L (-2.5-2.5); ABG HCO3 28.8 MMOL/L (20-26); ABG Oxygen Saturation 96.9 % (95-100); ABG PCO2 46.4 MM HG (35-48); ABG PO2 81.4 MM HG (80-95); ABG TCO2 27.4 MMOL/L (23-27)
[2017-08-09] MEDS: methylPREDNISolone SOD SUC 40 MG/1 ML VIAL IV SCH ×2 (12:46→21:05)
[2017-08-09] MEDS: MONTELUKAST 10 MG TABLET PO SCH ×2 (12:46→21:04)
[2017-08-09] MEDS: DORNASE ALFA 2.5 MG/2.5 ML VIAL RESP TX SCH ×2 (13:36→20:08)
[2017-08-09] MEDS: ATORVASTATIN 80 MG TABLET PO SCH (21:04)
[2017-08-09] MEDS: ENOXAPARIN 100 MG/ML SYRINGE SUBCUT SCH (21:05)
[2017-08-10] MEDS: AMPICILLIN/SULBACTAM 3,000 MG in SODIUM CHLORIDE 0.9% 100 ML IV SCH ×4 (00:11→20:17)
[2017-08-10 05:39] LABS: Basophils % 0.1 % (0.0-0.8); Hematocrit 31.2 VOL% (42.0-52.0); Immature Granulocytes % 0.6 %; Immature Granulocytes Absolute 0.05 #; Lymphocytes # 0.3 10*3/uL (1.4-4.0); Lymphocytes % 3.3 % (21.2-54.2); Mean Corpuscular HGB Conc 32.1 GM/DL (32-36); Mean Corpuscular Hemoglobin 30 PG (27-34); Mean Corpuscular Volume 94.3 FL (87-102); Mean Platelet Volume 12.5 FL (9.6-12.0); Monocytes # 0.2 10*3/uL (0.11-0.8); Monocytes % 2.6 % (1.7-12.7); Neutrophils # 7.6 10*3/uL (1.4-7.4); Neutrophils % 93.4 % (38.7-73.9); Platelet Count 147 T/CUMM (130-400); Red Blood Count 3.31 MC/CUMM (3.8-5.5); Red Cell Distribution Width 17.2 % (9.3-17.3); White Blood Count 8.1 T/CUMM (4-12)
[2017-08-10] MEDS: LEVOTHYROXINE 75 MCG TABLET PO SCH (05:39)
[2017-08-10] MEDS: methylPREDNISolone SOD SUC 40 MG/1 ML VIAL IV SCH ×3 (05:40→19:47)
[2017-08-10 06:03] LABS: Calcium 7.8 MG/DL (8.5-10.1); Potassium 4.6 MMOL/L (3.5-5.1)
[2017-08-10 06:09] LABS: Band Neutrophils 1 % (0-10); Burr Cells 1+; Hypochromasia 1+; Macrocytosis 1+; Segmented Neutrophils 96 % (50-85); Total Cells Counted 100
[2017-08-10 06:10] LABS: Giant Platelets Few; Platelet Estimate Adequate
[2017-08-10] MEDS: ALBUTEROL/IPRATROPIUM 3 ML NEB RESP TX SCH ×2 (07:09→12:35)
[2017-08-10] MEDS: DORNASE ALFA 2.5 MG/2.5 ML VIAL RESP TX SCH (07:14)
[2017-08-10] MEDS: PANTOPRAZOLE 40 MG TABLET PO SCH (08:29)
[2017-08-10] MEDS: TICAGRELOR 90 MG TABLET PO SCH (08:29)
[2017-08-10] MEDS: ASPIRIN EC 81 MG TABLET PO SCH (08:29)
[2017-08-10] MEDS ORDERED: LIDOCAINE 1% 20 ML VIAL ONE (08:55)
[2017-08-10] MEDS ORDERED: HEPARIN/NACL 0.9% 2 UNITS/ML 1,000 ML IV ONE ×2 (09:16→09:34)
[2017-08-10] MEDS ORDERED: ISOPROTERENOL 1 MG/5 ML VIAL IV ONE (09:44)
[2017-08-10 09:46] LABS: Apearance,Urine Slightly Hazy (Clear); Bilirubin,Urine Negative (Negative); Blood, Urine Negative (Negative); Glucose,Urine (UA) Negative (Negative); Hyaline Casts,Urine 8 /LPF (0-3); Ketones,Urine Negative (Negative); Nitrite,Urine Negative (Negative); Protein,Urine Negative; RBC,Urine <1 /HPF (0-4); Urine Color Yellow (Yellow); Urine Specific Gravity 1.017 (1.001-1.035); Urine Urobilinogen < 2.0 EU/DL (0.2-1.0); WBC,Urine 1 /HPF (0-6)
[2017-08-10] MEDS ORDERED: ADENOSINE 90 MG/30 ML VIAL IV ONE (10:31)
[2017-08-10] MEDS ORDERED: ADENOSINE 6 MG/2 ML VIAL ONE (10:32)
[2017-08-10] MEDS ORDERED: EPINEPHrine 1 MG/10 ML SYRINGE ONE ×3 (10:38→13:34)
[2017-08-10] MEDS ORDERED: SODIUM BICARBONATE 50 MEQ/50 ML SYRINGE IV ONE ×2 (10:38→13:24)
[2017-08-10] MEDS ORDERED: NOREPINEPHRINE 4 MG/4 ML VIAL IV ONE ×2 (10:38→11:15)
[2017-08-10] MEDS ORDERED: ceFAZolin 1,000 MG VIAL ONE (11:03)
[2017-08-10] MEDS ORDERED: VANCOMYCIN 1,000 MG VIAL ONE (11:16)
[2017-08-10] MEDS ORDERED: PAPAVERINE 60 MG/2 ML VIAL ONE (11:17)
[2017-08-10] MEDS ORDERED: TRANEXAMIC ACID 1,000 MG/10 ML VIAL IV ONE ×2 (11:32→14:27)
[2017-08-10] MEDS ORDERED: CEFUROXIME 1,500 MG VIAL ONE (11:55)
[2017-08-10 12:11] LABS: ABG Base Excess -9.4 MMOL/L (-2.5-2.5); ABG HCO3 16.1 MMOL/L (20-26); ABG Oxygen Saturation 99.2 % (95-100); ABG PCO2 33.9 MM HG (35-48); ABG PH 7.295 (7.35-7.45); ABG PO2 399.2 MM HG (80-95); ABG TCO2 17.2 MMOL/L (23-27); Glucose Heart Surgery 229 MG/DL (74-106); Hemoglobin Heart Surgery 10.4 G/DL (14.0-18.0); Ionized Calcium Arterial 0.81 MMOL/L (1.21-1.46); PCO2 Patient Temp Arterial 33.9 MMHG; PH Patient Temp Arterial 7.295; PO2 Patient Temp Arterial 399.2 MM HG; Patient Temperature 37 CELCIUS; Potassium Heart/CVR 4.5 MMOL/L (3.5-5.1); Sodium Heart/CVR 134 MMOL/L (135-145)
[2017-08-10] MEDS ORDERED: PHENYLEPHRINE DRIP 20 MG/250 ML PREMIX IV ONE ×2 (12:57→13:24)
[2017-08-10] MEDS ORDERED: ETOMIDATE 40 MG/20 ML VIAL IV ONE (12:58)
[2017-08-10] MEDS ORDERED: MIDAZOLAM 2 MG/2 ML VIAL ONE ×2 (12:58→14:27)
[2017-08-10] MEDS ORDERED: fentaNYL 100 MCG/2 ML VIAL ONE ×2 (12:58→14:27)
[2017-08-10] MEDS ORDERED: SUCCINYLCHOLINE 200 MG/10 ML VIAL ONE (12:59)
[2017-08-10] MEDS ORDERED: SODIUM CHLORIDE 0.9% 1,000 ML IV ONE ×2 (12:59→14:27)
[2017-08-10] MEDS ORDERED: ROCURONIUM 100 MG/10 ML VIAL IV ONE (12:59)
[2017-08-10 13:07] LABS: Hematocrit Heart Surgery 26.9 PERCENT (42-52); Hemoglobin Heart Surgery 8.7 G/DL (14.0-18.0); PCO2 Patient Temp Venous 47.6 MM HG; PH Patient Temp Venous 7.309; PO2 Patient Temp Venous 43.2 MM HG; Potassium Heart/CVR 4.7 MMOL/L (3.5-5.1); VBG Base Excess -2.5 MEQ/L (0-4); VBG HCO3 22.1 MEQ/L (24-28); VBG Oxygen Saturation 77.9 %; VBG PCO2 47.6 MMHG (41-51); VBG PH 7.309; VBG PO2 43.2 MMHG (17-40)
[2017-08-10] MEDS ORDERED: ALBUMIN 25% 25 GM/100 ML VIAL IV ONE (13:24)
[2017-08-10] MEDS ORDERED: MANNITOL 12.5 GM/50 ML VIAL IV ONE (13:25)
[2017-08-10] MEDS ORDERED: methylPREDNISolone SOD SUC 1,000 MG/8 ML VIAL ONE (13:25)
[2017-08-10] MEDS ORDERED: PROTAMINE SULFATE 50 MG/5 ML VIAL IV ONE ×2 (13:25→14:51)
[2017-08-10] MEDS ORDERED: PROTAMINE SULFATE 250 MG/25 ML VIAL IV ONE (13:25)
[2017-08-10] MEDS ORDERED: FUROSEMIDE 20 MG/2 ML VIAL ONE (13:25)
[2017-08-10] MEDS ORDERED: HEPARIN 10,000 UNIT/10 ML VIAL ONE (13:25)
[2017-08-10] MEDS ORDERED: PHENYLEPHRINE DRIP 40 MG/250 ML PREMIX IV ONE (13:34)
[2017-08-10] MEDS ORDERED: NITROPRUSSIDE 50 MG/2 ML VIAL ONE (13:34)
[2017-08-10] MEDS ORDERED: LIDOCAINE 100 MG/5 ML SYRINGE ONE (13:35)
[2017-08-10] MEDS ORDERED: ALBUMIN 5% 12.5 GM/250 ML VIAL IV ONE (13:35)
[2017-08-10 13:37] LABS: ABG Base Excess -0.8 MMOL/L (-2.5-2.5); ABG HCO3 23.7 MMOL/L (20-26); ABG Oxygen Saturation 97.5 % (95-100); ABG PCO2 45.5 MM HG (35-48); ABG PH 7.347 (7.35-7.45); ABG PO2 93.3 MM HG (80-95); ABG TCO2 23.2 MMOL/L (23-27); Glucose Heart Surgery 203 MG/DL (74-106); Hematocrit Heart Surgery 27.1 PERCENT (42-52); Hemoglobin Heart Surgery 8.7 G/DL (14.0-18.0); Ionized Calcium Arterial 1.03 MMOL/L (1.21-1.46); PCO2 Patient Temp Arterial 45.5 MMHG; PH Patient Temp Arterial 7.347; PO2 Patient Temp Arterial 93.3 MM HG; Patient Temperature 37 CELCIUS; Potassium Heart/CVR 4.1 MMOL/L (3.5-5.1); Sodium Heart/CVR 136 MMOL/L (135-145)
[2017-08-10] MEDS ORDERED: POTASSIUM CHLORIDE RIDER 100 ML IV ONE (13:45)
[2017-08-10] MEDS: SODIUM CHLORIDE 0.45% 1,000 ML IV SCH ×2 (14:12)
[2017-08-10] MEDS ORDERED: CALCIUM CHLORIDE 1,000 MG/10 ML VIAL IV ONE (14:26)
[2017-08-10] MEDS ORDERED: SEVOFLURANE 1 UNIT/15 MINUTE INH ONE (14:26)
[2017-08-10] MEDS ORDERED: SODIUM CHLORIDE 0.9% 200 ML IV ONE (14:27)
[2017-08-10] MEDS ORDERED: KETAMINE 500 MG/10 ML VIAL ONE (14:27)
[2017-08-10] MEDS ORDERED: ePHEDrine 50 MG/ML AMP ONE (14:27)
[2017-08-10] MEDS ORDERED: MAGNESIUM SULF RIDER 2 GM in PREMIX 1 EACH IV PRN (14:48)
[2017-08-10] MEDS ORDERED: INSULIN REGULAR 100 UNIT/ML IV PRN (14:48)
[2017-08-10] MEDS ORDERED: CALCIUM CHLORIDE 1,000 MG/10 ML SYRINGE IV PRN (14:48)
[2017-08-10] MEDS ORDERED: POTASSIUM CHLORIDE RIDER 10 MEQ in PREMIX 1 EACH IV PRN (14:48)
[2017-08-10] MEDS ORDERED: ONDANSETRON 4 MG/2 ML VIAL IV PRN (14:48)
[2017-08-10] MEDS ORDERED: MIDAZOLAM 2 MG/2 ML VIAL IV PRN (14:48)
[2017-08-10] MEDS ORDERED: LACTATED RINGERS 250 ML IV PRN (14:48)
[2017-08-10] MEDS ORDERED: INSULIN REGULAR DRIP 100 ML IV SCH (14:48)
[2017-08-10] MEDS ORDERED: ALBUMIN 5% 12.5 GM in PREMIX 1 EACH IV PRN (14:48)
[2017-08-10] MEDS ORDERED: MAGNESIUM SULF RIDER 4 GM in PREMIX 1 EACH IV PRN (14:48)
[2017-08-10] MEDS ORDERED: PHENYLEPHRINE DRIP 40 MG/250 ML PREMIX IV PRN (14:48)
[2017-08-10] MEDS ORDERED: NITROPRUSSIDE 100 MG in DEXTROSE 5% 250 ML IV PRN (14:48)
[2017-08-10] MEDS ORDERED: DEXTROSE 50% 25 GM/50 ML VIAL IV PRN ×2 (14:48)
[2017-08-10] MEDS ORDERED: VECURONIUM 10 MG VIAL IV PRN ×4 (14:48→15:43)
[2017-08-10] MEDS ORDERED: MORPHINE 10 MG/1 ML VIAL IV PRN (14:48)
[2017-08-10] MEDS ORDERED: INSULIN REGULAR 100 UNIT/ML IV ONE (14:48)
[2017-08-10] MEDS ORDERED: ACETAMINOPHEN 650 MG SUPP RECTAL PRN (14:48)
[2017-08-10] MEDS ORDERED: FUROSEMIDE 40 MG/4 ML VIAL IV ONE (14:51)
[2017-08-10 15:03] LABS: ABG Base Excess -2.9 MMOL/L (-2.5-2.5); ABG Oxygen Saturation 98.7 % (95-100); ABG PCO2 44.5 MM HG (35-48); ABG PH 7.324 (7.35-7.45); ABG TCO2 21.4 MMOL/L (23-27); Glucose Heart Surgery 189 MG/DL (74-106); Hematocrit Heart Surgery 29.3 PERCENT (42-52); Hemoglobin Heart Surgery 9.5 G/DL (14.0-18.0); Potassium Heart/CVR 3.7 MMOL/L (3.5-5.1)
[2017-08-10] MEDS ORDERED: FUROSEMIDE 100 MG/10 ML VIAL IV ONE (15:11)
[2017-08-10] MEDS: POTASSIUM CHLORIDE RIDER 20 MEQ in PREMIX 1 EACH IV PRN (15:19)
[2017-08-10 15:26] LABS: Bilirubin,Total 1.2 MG/DL (0.2-1.0); Calcium 7.7 MG/DL (8.5-10.1); Osmolality,Calculated 301.1 MOS/KG (273-304); Potassium 3.9 MMOL/L (3.5-5.1); Total Protein 4.1 G/DL (6.4-8.3)
[2017-08-10 15:27] LABS: CKMB % 9.4 %
[2017-08-10 15:34] LABS: Troponin I Only 2.51 NG/ML (0.00-0.045)
[2017-08-10] MEDS: AMIODARONE 200 MG TABLET PO SCH (16:04)
[2017-08-10] MEDS: LORATADINE 10 MG TABLET PO SCH (16:04)
[2017-08-10] MEDS: ISOSORBIDE MONONITRATE 20 MG TABLET PO SCH (16:04)
[2017-08-10] MEDS: DILTIAZEM 60 MG TABLET PO SCH (16:04)
[2017-08-10] MEDS: DESITIN 4OZ/NYSTATIN 15 GRAM MIXTURE PASTE TOP SCH (16:05)
[2017-08-10] MEDS: POTASSIUM CHLORIDE 20 MEQ TABLET PO SCH (16:05)
[2017-08-10] MEDS: ASCORBIC ACID 500 MG TABLET PO SCH (16:05)
[2017-08-10] MEDS: BISOPROLOL 5 MG TABLET PO SCH (16:05)
[2017-08-10] MEDS: MAGNESIUM OXIDE 400 MG TABLET PO SCH (16:05)
[2017-08-10] MEDS: MONTELUKAST 10 MG TABLET PO SCH (16:05)
[2017-08-10] MEDS: FUROSEMIDE INJ 200 MG in SODIUM CHLORIDE 0.9% 80 ML IV SCH (16:19)
[2017-08-10] MEDS ORDERED: DOBUTamine 500 MG/250 ML PREMIX IV ONE (16:24)
[2017-08-10] MEDS: DOBUTamine 500 MG/250 ML PREMIX IV SCH (16:29)
[2017-08-10 17:41] LABS: Basophils % 0.1 % (0.0-0.8); Hematocrit 26.4 VOL% (42.0-52.0); Hemoglobin 8.4 GM/DL (14.0-18.0); Immature Granulocytes % 1.6 %; Immature Granulocytes Absolute 0.19 #; Lymphocytes # 0.3 10*3/uL (1.4-4.0); Lymphocytes % 2.7 % (21.2-54.2); Mean Corpuscular HGB Conc 31.8 GM/DL (32-36); Mean Corpuscular Hemoglobin 30 PG (27-34); Mean Corpuscular Volume 94.6 FL (87-102); Mean Platelet Volume 11.5 FL (9.6-12.0); Monocytes # 0.4 10*3/uL (0.11-0.8); Monocytes % 3.2 % (1.7-12.7); Neutrophils # 10.9 10*3/uL (1.4-7.4); Neutrophils % 92.4 % (38.7-73.9); Platelet Count 151 T/CUMM (130-400); Red Blood Count 2.79 MC/CUMM (3.8-5.5); Red Cell Distribution Width 16.2 % (9.3-17.3); White Blood Count 11.7 T/CUMM (4-12)
[2017-08-10 17:49] LABS: INR 1.2; PT Patient Result 12.9 SECS; Partial Thromboplastin Time 34.4 SECS (0-40)
[2017-08-10 18:08] LABS: ABG Base Excess -0.1 MMOL/L (-2.5-2.5); ABG HCO3 24.9 MMOL/L (20-26); ABG PCO2 41.9 MM HG (35-48); ABG PH 7.391 (7.35-7.45); ABG PO2 69.3 MM HG (80-95); ABG TCO2 26.1 MMOL/L (23-27); Glucose Heart Surgery 135 MG/DL (74-106); Hemoglobin Heart Surgery 10.1 G/DL (14.0-18.0); Potassium Heart/CVR 4.5 MMOL/L (3.5-5.1)
[2017-08-10 19:21] LABS: Band Neutrophils 1 % (0-10); Segmented Neutrophils 96 % (50-85); Total Cells Counted 100
[2017-08-10 19:22] LABS: Platelet Estimate Adequate; Polychromasia Slight
[2017-08-10] MEDS: CHLORHEXIDINE 0.12% ORAL RINSE 60 ML BOTTLE SWISH/SPIT SCH (20:24)
[2017-08-10 22:13] LABS: ABG Base Excess 1.3 MMOL/L (-2.5-2.5); ABG HCO3 25.6 MMOL/L (20-26); ABG Oxygen Saturation 97.8 % (95-100); ABG PCO2 44.2 MM HG (35-48); ABG PH 7.387 (7.35-7.45); ABG PO2 92.5 MM HG (80-95); ABG TCO2 24.3 MMOL/L (23-27); Glucose Heart Surgery 151 MG/DL (74-106); Hematocrit Heart Surgery 29.3 PERCENT (42-52); Hemoglobin Heart Surgery 9.5 G/DL (14.0-18.0); Potassium Heart/CVR 4.6 MMOL/L (3.5-5.1)
[2017-08-10] MEDS: MIDAZOLAM 10 MG/2 ML VIAL IV PRN (22:23)
[2017-08-10] MEDS ORDERED: PHENYLEPHRINE INJ 80 MG in SODIUM CHLORIDE 0.9% 242 ML IV SCH (23:45)
[2017-08-10 23:55] LABS: Troponin I Only 4.83 NG/ML (0.00-0.045)
[2017-08-11] MEDS: CEFUROXIME INJ 1,500 MG in SYRINGE 1 EACH IV SCH ×2 (00:16→12:00)
[2017-08-11] MEDS: INSULIN REGULAR 100 UNIT/ML SUBCUT SCH ×6 (00:17→20:35)
[2017-08-11] MEDS: FUROSEMIDE INJ 200 MG in SODIUM CHLORIDE 0.9% 80 ML IV SCH ×4 (00:20→21:25)
[2017-08-11] MEDS: MIDAZOLAM 10 MG/2 ML VIAL IV PRN (01:00)
[2017-08-11] MEDS: PANTOPRAZOLE 40 MG VIAL IV SCH ×3 (02:12→20:36)
[2017-08-11] MEDS: AMPICILLIN/SULBACTAM 3,000 MG in SODIUM CHLORIDE 0.9% 100 ML IV SCH ×4 (02:12→21:49)
[2017-08-11] MEDS: methylPREDNISolone SOD SUC 40 MG/1 ML VIAL IV SCH ×3 (02:13→20:36)
[2017-08-11 04:14] LABS: ABG Base Excess 0.6 MMOL/L (-2.5-2.5); ABG Oxygen Saturation 99.3 % (95-100); ABG PH 7.392 (7.35-7.45); ABG TCO2 23.4 MMOL/L (23-27); Glucose Heart Surgery 145 MG/DL (74-106); Hematocrit Heart Surgery 30.1 PERCENT (42-52); Hemoglobin Heart Surgery 9.7 G/DL (14.0-18.0); Potassium Heart/CVR 4.3 MMOL/L (3.5-5.1)
[2017-08-11 04:33] LABS: Basophils % 0.1 % (0.0-0.8); Hematocrit 28.7 VOL% (42.0-52.0); Hemoglobin 9.6 GM/DL (14.0-18.0); Immature Granulocytes % 0.8 %; Immature Granulocytes Absolute 0.09 #; Lymphocytes # 0.6 10*3/uL (1.4-4.0); Lymphocytes % 5.1 % (21.2-54.2); Mean Corpuscular HGB Conc 33.4 GM/DL (32-36); Mean Corpuscular Hemoglobin 30 PG (27-34); Mean Corpuscular Volume 90.3 FL (87-102); Mean Platelet Volume 11.9 FL (9.6-12.0); Monocytes # 0.9 10*3/uL (0.11-0.8); Monocytes % 8.2 % (1.7-12.7); Neutrophils # 9.3 10*3/uL (1.4-7.4); Neutrophils % 85.8 % (38.7-73.9); Platelet Count 164 T/CUMM (130-400); Red Blood Count 3.18 MC/CUMM (3.8-5.5); White Blood Count 10.9 T/CUMM (4-12)
[2017-08-11] MEDS: PHENYLEPHRINE INJ 160 MG in SODIUM CHLORIDE 0.9% 234 ML IV SCH ×2 (04:45→21:08)
[2017-08-11 05:08] LABS: Albumin 2.2 G/DL (3.4-5.0); Bilirubin,Direct 0.4 MG/DL (0.0-0.20); Bilirubin,Total 0.8 MG/DL (0.2-1.0); Calcium 7.5 MG/DL (8.5-10.1); Potassium 4.5 MMOL/L (3.5-5.1); Total Protein 4.3 G/DL (6.4-8.3)
[2017-08-11 05:41] LABS: ABG Base Excess 0.2 MMOL/L (-2.5-2.5); ABG HCO3 24.5 MMOL/L (20-26); ABG Oxygen Saturation 97.6 % (95-100); ABG PCO2 38.7 MM HG (35-48); ABG PO2 111.7 MM HG (80-95); ABG TCO2 25.7 MMOL/L (23-27); Glucose Heart Surgery 127 MG/DL (74-106); Hemoglobin Heart Surgery 9.9 G/DL (14.0-18.0); Potassium Heart/CVR 4.3 MMOL/L (3.5-5.1)
[2017-08-11 05:44] LABS: CKMB % 6.5 %
[2017-08-11 06:18] LABS: Troponin I Only 4.37 NG/ML (0.00-0.045)
[2017-08-11 07:50] LABS: ABG HCO3 24.4 MMOL/L (20-26); ABG Oxygen Saturation 96.3 % (95-100); ABG PCO2 43.7 MM HG (35-48); ABG PH 7.372 (7.35-7.45); ABG PO2 79.4 MM HG (80-95); ABG TCO2 23.3 MMOL/L (23-27); Glucose Heart Surgery 145 MG/DL (74-106); Hematocrit Heart Surgery 29.2 PERCENT (42-52); Hemoglobin Heart Surgery 9.4 G/DL (14.0-18.0); Potassium Heart/CVR 4.2 MMOL/L (3.5-5.1)
[2017-08-11] MEDS: DORNASE ALFA 2.5 MG/2.5 ML VIAL RESP TX SCH ×2 (07:52→19:25)
[2017-08-11] MEDS ORDERED: AMIODARONE 200 MG TABLET PO SCH (09:00)
[2017-08-11] MEDS: MONTELUKAST 10 MG TABLET PO SCH ×2 (09:05→20:36)
[2017-08-11] MEDS: LORATADINE 10 MG TABLET PO SCH (09:05)
[2017-08-11] MEDS: ASCORBIC ACID 500 MG TABLET PO SCH ×2 (09:05→20:37)
[2017-08-11] MEDS: ASPIRIN EC 81 MG TABLET PO SCH (09:05)
[2017-08-11] MEDS: CHLORHEXIDINE 0.12% ORAL RINSE 60 ML BOTTLE SWISH/SPIT SCH ×2 (09:05→21:49)
[2017-08-11 12:10] LABS: ABG HCO3 22.7 MMOL/L (20-26); ABG Oxygen Saturation 96.4 % (95-100); ABG PCO2 45.1 MM HG (35-48); ABG PH 7.333 (7.35-7.45); ABG PO2 84.6 MM HG (80-95); ABG TCO2 22.2 MMOL/L (23-27); Glucose Heart Surgery 174 MG/DL (74-106); Hematocrit Heart Surgery 27.1 PERCENT (42-52); Hemoglobin Heart Surgery 8.7 G/DL (14.0-18.0); Potassium Heart/CVR 4.3 MMOL/L (3.5-5.1)
[2017-08-11] MEDS: SODIUM CHLORIDE 0.45% 1,000 ML IV SCH ×2 (16:15→16:16)
[2017-08-11] MEDS: metOLazone 5 MG TABLET PO SCH (16:20)
[2017-08-11] MEDS ORDERED: DILTIAZEM 50 MG/10 ML VIAL IV ONE (18:42)
[2017-08-11] MEDS ORDERED: DILTIAZEM 100 MG VIAL.ADD IV ONE (18:46)
[2017-08-11] MEDS: DOBUTamine 500 MG/250 ML PREMIX IV SCH (19:01)
[2017-08-11] MEDS: DILTIAZEM INJ 100 MG in SODIUM CHLORIDE 0.9% 100 ML IV SCH (19:16)
[2017-08-11] MEDS: ATORVASTATIN 80 MG TABLET PO SCH (20:36)
[2017-08-11 20:42] LABS: CKMB % 3.3 %
[2017-08-11 20:44] LABS: Troponin I Only 3.07 NG/ML (0.00-0.045)
[2017-08-11 21:00] LABS: ABG Base Excess -3.2 MMOL/L (-2.5-2.5); ABG Oxygen Saturation 94.9 % (95-100); ABG PCO2 40.2 MM HG (35-48); ABG PH 7.356 (7.35-7.45); ABG PO2 81.2 MM HG (80-95); ABG TCO2 23.2 MMOL/L (23-27); Glucose Heart Surgery 157 MG/DL (74-106); Hemoglobin Heart Surgery 8.2 G/DL (14.0-18.0); Potassium Heart/CVR 4.5 MMOL/L (3.5-5.1)
[2017-08-12] MEDS: CEFUROXIME INJ 1,500 MG in SYRINGE 1 EACH IV SCH (00:42)
[2017-08-12] MEDS: FUROSEMIDE INJ 200 MG in SODIUM CHLORIDE 0.9% 80 ML IV SCH ×3 (00:46→18:40)
[2017-08-12] MEDS: INSULIN REGULAR 100 UNIT/ML SUBCUT SCH ×6 (00:47→21:01)
[2017-08-12] MEDS: AMPICILLIN/SULBACTAM 3,000 MG in SODIUM CHLORIDE 0.9% 100 ML IV SCH ×3 (02:10→20:47)
[2017-08-12] MEDS: methylPREDNISolone SOD SUC 40 MG/1 ML VIAL IV SCH ×3 (02:10→18:40)
[2017-08-12] MEDS: MORPHINE 2 MG/1 ML SYRINGE IV PRN (02:14)
[2017-08-12] MEDS: LEVALBUTEROL 1.25 MG/3 ML NEB RESP TX PRN (02:25)
[2017-08-12 03:37] LABS: ABG HCO3 23.6 MMOL/L (20-26); ABG Oxygen Saturation 99.7 % (95-100); ABG PCO2 47.4 MM HG (35-48); ABG PH 7.331 (7.35-7.45); ABG TCO2 23.7 MMOL/L (23-27); Glucose Heart Surgery 153 MG/DL (74-106); Hematocrit Heart Surgery 23.6 PERCENT (42-52); Hemoglobin Heart Surgery 7.6 G/DL (14.0-18.0); Potassium Heart/CVR 4.6 MMOL/L (3.5-5.1)
[2017-08-12] MEDS: PHENYLEPHRINE INJ 160 MG in SODIUM CHLORIDE 0.9% 234 ML IV SCH ×2 (03:37→20:47)
[2017-08-12] MEDS: DILTIAZEM INJ 100 MG in SODIUM CHLORIDE 0.9% 100 ML IV SCH ×2 (03:37→18:40)
[2017-08-12 03:40] LABS: Basophils % 0.1 % (0.0-0.8); Hematocrit 22.8 VOL% (42.0-52.0); Hemoglobin 7.3 GM/DL (14.0-18.0); Immature Granulocytes % 1.3 %; Immature Granulocytes Absolute 0.21 #; Lymphocytes # 0.7 10*3/uL (1.4-4.0); Lymphocytes % 4.1 % (21.2-54.2); Mean Corpuscular Hemoglobin 30 PG (27-34); Mean Corpuscular Volume 94.2 FL (87-102); Mean Platelet Volume 11.5 FL (9.6-12.0); Monocytes # 1.5 10*3/uL (0.11-0.8); Monocytes % 9.6 % (1.7-12.7); NRBC # 0.05 10*3/uL; Neutrophils # 13.6 10*3/uL (1.4-7.4); Neutrophils % 84.9 % (38.7-73.9); Platelet Count 133 T/CUMM (130-400); Red Blood Count 2.42 MC/CUMM (3.8-5.5)
[2017-08-12 04:02] LABS: Albumin 2.1 G/DL (3.4-5.0); Bilirubin,Direct 0.35 MG/DL (0.0-0.20); Bilirubin,Total 0.6 MG/DL (0.2-1.0); Calcium 7.3 MG/DL (8.5-10.1); Osmolality,Calculated 298.7 MOS/KG (273-304); Potassium 4.6 MMOL/L (3.5-5.1); Total Protein 4.7 G/DL (6.4-8.3)
[2017-08-12 05:21] LABS: Acanthocytes Few; Hypochromasia 1+; Lymphocytes 5 % (20-55); Microcytosis 1+; Ovalocytes Slight; Segmented Neutrophils 93 % (50-85); Total Cells Counted 100
[2017-08-12 05:22] LABS: Platelet Estimate Adequate; Polychromasia Slight
[2017-08-12] MEDS: LEVOTHYROXINE 75 MCG TABLET PO SCH (06:54)
[2017-08-12] MEDS: DORNASE ALFA 2.5 MG/2.5 ML VIAL RESP TX SCH ×2 (07:27→19:40)
[2017-08-12] MEDS ORDERED: AMIODARONE 200 MG TABLET PO SCH (09:00)
[2017-08-12] MEDS: AMIODARONE 200 MG TABLET PO SCH ×2 (09:10→20:47)
[2017-08-12] MEDS: ASCORBIC ACID 500 MG TABLET PO SCH ×2 (09:10→20:46)
[2017-08-12] MEDS: ASPIRIN EC 81 MG TABLET PO SCH (09:10)
[2017-08-12] MEDS: MONTELUKAST 10 MG TABLET PO SCH ×2 (09:10→20:46)
[2017-08-12] MEDS: PANTOPRAZOLE 40 MG VIAL IV SCH ×2 (09:10→20:47)
[2017-08-12] MEDS: metOLazone 5 MG TABLET PO SCH (09:10)
[2017-08-12] MEDS: LORATADINE 10 MG TABLET PO SCH (09:10)
[2017-08-12] MEDS: CHLORHEXIDINE 0.12% ORAL RINSE 60 ML BOTTLE SWISH/SPIT SCH ×2 (09:10→22:23)
[2017-08-12] MEDS: ATORVASTATIN 80 MG TABLET PO SCH (20:46)
[2017-08-12] MEDS: DOBUTamine 500 MG/250 ML PREMIX IV SCH (22:23)
[2017-08-13 01:00] LABS: ABG Base Excess -1.9 MMOL/L (-2.5-2.5); ABG Oxygen Saturation 96.9 % (95-100); ABG PCO2 39.9 MM HG (35-48); ABG PH 7.379 (7.35-7.45); ABG PO2 103.6 MM HG (80-95); ABG TCO2 24.2 MMOL/L (23-27)
[2017-08-13 01:09] LABS: Basophils % 0.1 % (0.0-0.8); Hematocrit 25.6 VOL% (42.0-52.0); Hemoglobin 8.3 GM/DL (14.0-18.0); Immature Granulocytes % 1.5 %; Immature Granulocytes Absolute 0.27 #; Lymphocytes # 0.6 10*3/uL (1.4-4.0); Lymphocytes % 3.2 % (21.2-54.2); Mean Corpuscular HGB Conc 32.4 GM/DL (32-36); Mean Corpuscular Hemoglobin 30 PG (27-34); Mean Corpuscular Volume 93.1 FL (87-102); Mean Platelet Volume 12.2 FL (9.6-12.0); Monocytes # 1.1 10*3/uL (0.11-0.8); Monocytes % 6.2 % (1.7-12.7); NRBC # 0.37 10*3/uL; Neutrophils # 15.7 10*3/uL (1.4-7.4); Platelet Count 103 T/CUMM (130-400); Red Blood Count 2.75 MC/CUMM (3.8-5.5); Red Cell Distribution Width 15.1 % (9.3-17.3); White Blood Count 17.6 T/CUMM (4-12)
[2017-08-13] MEDS: LEVALBUTEROL 1.25 MG/3 ML NEB RESP TX PRN (01:19)
[2017-08-13 01:30] LABS: Bilirubin,Direct 0.34 MG/DL (0.0-0.20); Bilirubin,Total 0.6 MG/DL (0.2-1.0); Calcium 6.9 MG/DL (8.5-10.1); Osmolality,Calculated 307.7 MOS/KG (273-304); Potassium 4.4 MMOL/L (3.5-5.1); Total Protein 4.6 G/DL (6.4-8.3)
[2017-08-13] MEDS ORDERED: ETOMIDATE 20 MG/10 ML VIAL IV ONE ×2 (01:44→01:58)
[2017-08-13] MEDS: PROPOFOL 1,000 MG/100 ML BOTTLE IV SCH ×2 (02:15→19:21)
[2017-08-13] MEDS: INSULIN REGULAR 100 UNIT/ML SUBCUT SCH ×6 (03:46→20:06)
[2017-08-13] MEDS: methylPREDNISolone SOD SUC 40 MG/1 ML VIAL IV SCH ×3 (04:00→19:24)
[2017-08-13 04:16] LABS: ABG Base Excess -0.2 MMOL/L (-2.5-2.5); ABG HCO3 24.3 MMOL/L (20-26); ABG PCO2 37.2 MM HG (35-48); ABG PH 7.417 (7.35-7.45); ABG TCO2 20.9 MMOL/L (23-27)
[2017-08-13] MEDS: FUROSEMIDE INJ 200 MG in SODIUM CHLORIDE 0.9% 80 ML IV SCH ×2 (04:44→15:20)
[2017-08-13] MEDS: PHENYLEPHRINE INJ 160 MG in SODIUM CHLORIDE 0.9% 234 ML IV SCH ×3 (05:59→20:29)
[2017-08-13] MEDS: DILTIAZEM INJ 100 MG in SODIUM CHLORIDE 0.9% 100 ML IV SCH (06:00)
[2017-08-13 07:23] LABS: Band Neutrophils 5 % (0-10); Lymphocytes 2 % (20-55); Myelocytes 1 %; Nucleated Red Blood Cells 4 (0-5); Segmented Neutrophils 87 % (50-85); Total Cells Counted 100
[2017-08-13 07:24] LABS: Anisocytosis 1+; Hypochromasia 1+; Microcytosis 1+; Ovalocytes Slight; Platelet Estimate Decreased
[2017-08-13] MEDS: DORNASE ALFA 2.5 MG/2.5 ML VIAL RESP TX SCH ×2 (07:30→19:59)
[2017-08-13] MEDS: LEVOTHYROXINE 75 MCG TABLET PO SCH (07:33)
[2017-08-13] MEDS ORDERED: AMIODARONE 150 MG/3 ML VIAL ONE (08:54)
[2017-08-13] MEDS: AMIODARONE INJ 450 MG in DEXTROSE 5% 241 ML IV SCH (09:16)
[2017-08-13] MEDS: AMIODARONE 200 MG TABLET PO SCH ×2 (10:07→20:57)
[2017-08-13] MEDS: ASCORBIC ACID 500 MG TABLET PO SCH ×2 (10:08→20:56)
[2017-08-13] MEDS: PANTOPRAZOLE 40 MG VIAL IV SCH ×2 (10:08→20:56)
[2017-08-13] MEDS: MONTELUKAST 10 MG TABLET PO SCH ×2 (10:08→20:56)
[2017-08-13] MEDS: ASPIRIN EC 81 MG TABLET PO SCH (10:08)
[2017-08-13] MEDS: LORATADINE 10 MG TABLET PO SCH (10:08)
[2017-08-13] MEDS: metOLazone 5 MG TABLET PO SCH (10:11)
[2017-08-13] MEDS: AMPICILLIN/SULBACTAM 3,000 MG in SODIUM CHLORIDE 0.9% 100 ML IV SCH (10:35)
[2017-08-13] MEDS: CHLORHEXIDINE 0.12% ORAL RINSE 60 ML BOTTLE SWISH/SPIT SCH ×2 (11:28→20:57)
[2017-08-13] MEDS: cefTRIAXone 1,000 MG in SYRINGE 1 EACH IV SCH (16:59)
[2017-08-13] MEDS: DOBUTamine 500 MG/250 ML PREMIX IV SCH (18:57)
[2017-08-13] MEDS: ATORVASTATIN 80 MG TABLET PO SCH (20:56)
[2017-08-14] MEDS: INSULIN REGULAR 100 UNIT/ML SUBCUT SCH ×7 (00:08→23:45)
[2017-08-14] MEDS ORDERED: AMIODARONE 150 MG/3 ML VIAL ONE ×2 (00:20)
[2017-08-14] MEDS: PROPOFOL 1,000 MG/100 ML BOTTLE IV SCH ×4 (00:47→19:30)
[2017-08-14] MEDS: AMIODARONE INJ 450 MG in DEXTROSE 5% 241 ML IV SCH ×2 (00:53→17:25)
[2017-08-14] MEDS: FUROSEMIDE INJ 200 MG in SODIUM CHLORIDE 0.9% 80 ML IV SCH ×3 (01:20→21:26)
[2017-08-14] MEDS: methylPREDNISolone SOD SUC 40 MG/1 ML VIAL IV SCH ×3 (02:35→19:26)
[2017-08-14 03:42] LABS: ABG Base Excess -0.4 MMOL/L (-2.5-2.5); ABG HCO3 24.1 MMOL/L (20-26); ABG Oxygen Saturation 98.6 % (95-100); ABG PCO2 38.8 MM HG (35-48); ABG PH 7.411 (7.35-7.45); ABG TCO2 25.3 MMOL/L (23-27)
[2017-08-14 03:48] LABS: Basophils % 0.1 % (0.0-0.8); Hematocrit 24.9 VOL% (42.0-52.0); Hemoglobin 8.3 GM/DL (14.0-18.0); Immature Granulocytes % 2.2 %; Immature Granulocytes Absolute 0.48 #; Lymphocytes # 0.6 10*3/uL (1.4-4.0); Lymphocytes % 2.9 % (21.2-54.2); Mean Corpuscular HGB Conc 33.3 GM/DL (32-36); Mean Corpuscular Hemoglobin 31 PG (27-34); Mean Corpuscular Volume 92.9 FL (87-102); Mean Platelet Volume 11.8 FL (9.6-12.0); Monocytes % 4.4 % (1.7-12.7); NRBC # 0.62 10*3/uL; Neutrophils # 19.3 10*3/uL (1.4-7.4); Neutrophils % 90.4 % (38.7-73.9); Platelet Count 144 T/CUMM (130-400); Red Blood Count 2.68 MC/CUMM (3.8-5.5); Red Cell Distribution Width 15.2 % (9.3-17.3); White Blood Count 21.4 T/CUMM (4-12)
[2017-08-14 04:07] LABS: Calcium 7.2 MG/DL (8.5-10.1); Potassium 4.6 MMOL/L (3.5-5.1)
[2017-08-14 04:11] LABS: Calcium 7.2 MG/DL (8.5-10.1); Potassium 4.6 MMOL/L (3.5-5.1); Prealbumin 14.9 MG/DL (20-40)
[2017-08-14 04:13] LABS: Band Neutrophils 1 % (0-10); Lymphocytes 1 % (20-55); Myelocytes 2 %; Nucleated Red Blood Cells 3 (0-5); Segmented Neutrophils 96 % (50-85); Total Cells Counted 100
[2017-08-14 04:14] LABS: Anisocytosis 1+
[2017-08-14 04:15] LABS: Macrocytosis 1+; Ovalocytes Few; Platelet Estimate Normal
[2017-08-14] MEDS: PHENYLEPHRINE INJ 160 MG in SODIUM CHLORIDE 0.9% 234 ML IV SCH ×2 (06:14→17:05)
[2017-08-14] MEDS: LEVOTHYROXINE 75 MCG TABLET PO SCH (06:16)
[2017-08-14] MEDS: DORNASE ALFA 2.5 MG/2.5 ML VIAL RESP TX SCH ×2 (07:28→20:16)
[2017-08-14] MEDS: PANTOPRAZOLE 40 MG VIAL IV SCH ×2 (09:18→20:21)
[2017-08-14] MEDS: ASCORBIC ACID 500 MG TABLET PO SCH ×2 (09:19→20:21)
[2017-08-14] MEDS: metOLazone 5 MG TABLET PO SCH (09:19)
[2017-08-14] MEDS: LORATADINE 10 MG TABLET PO SCH (09:19)
[2017-08-14] MEDS: ASPIRIN EC 81 MG TABLET PO SCH (09:19)
[2017-08-14] MEDS: MONTELUKAST 10 MG TABLET PO SCH ×2 (09:19→20:21)
[2017-08-14] MEDS: CHLORHEXIDINE 0.12% ORAL RINSE 60 ML BOTTLE SWISH/SPIT SCH ×2 (09:20→21:10)
[2017-08-14] MEDS: TICAGRELOR 90 MG TABLET PO SCH ×2 (09:30→20:21)
[2017-08-14] MEDS: MULTIVITAMIN LIQUID (CENTRUM) 60 ML BOTTLE PER TUBE SCH (12:54)
[2017-08-14] MEDS: cefTRIAXone 1,000 MG in SYRINGE 1 EACH IV SCH (17:26)
[2017-08-14 20:09] LABS: Creatinine,Urine Random 16 MG/DL; Total Protein,Urine Random 30 MG/DL; Urea Nitrogen, Urine Random 282 MG/DL
[2017-08-14] MEDS: ATORVASTATIN 80 MG TABLET PO SCH (20:20)
[2017-08-14] MEDS: PHENYLEPHRINE INJ 80 MG in SODIUM CHLORIDE 0.9% 242 ML IV SCH (20:30)
[2017-08-15] MEDS: PROPOFOL 1,000 MG/100 ML BOTTLE IV SCH ×3 (02:44→18:51)
[2017-08-15] MEDS: methylPREDNISolone SOD SUC 40 MG/1 ML VIAL IV SCH (03:03)
[2017-08-15 04:26] LABS: ABG Base Excess 1.8 MMOL/L (-2.5-2.5); ABG Oxygen Saturation 98.3 % (95-100); ABG PCO2 41.7 MM HG (35-48); ABG PH 7.412 (7.35-7.45); ABG TCO2 24.4 MMOL/L (23-27)
[2017-08-15 04:39] LABS: Basophils % 0.1 % (0.0-0.8); Hematocrit 24.1 VOL% (42.0-52.0); Hemoglobin 8.3 GM/DL (14.0-18.0); Immature Granulocytes % 2.7 %; Immature Granulocytes Absolute 0.43 #; Lymphocytes # 0.4 10*3/uL (1.4-4.0); Lymphocytes % 2.4 % (21.2-54.2); Mean Corpuscular HGB Conc 34.4 GM/DL (32-36); Mean Corpuscular Hemoglobin 31 PG (27-34); Mean Corpuscular Volume 91.3 FL (87-102); Mean Platelet Volume 11.7 FL (9.6-12.0); Monocytes # 0.8 10*3/uL (0.11-0.8); Monocytes % 5.4 % (1.7-12.7); NRBC # 0.24 10*3/uL; Neutrophils % 89.4 % (38.7-73.9); Platelet Count 120 T/CUMM (130-400); Red Blood Count 2.64 MC/CUMM (3.8-5.5); Red Cell Distribution Width 15.4 % (9.3-17.3); White Blood Count 15.7 T/CUMM (4-12)
[2017-08-15 04:54] LABS: Calcium 7.4 MG/DL (8.5-10.1); Osmolality,Calculated 315.7 MOS/KG (273-304); Potassium 3.7 MMOL/L (3.5-5.1)
[2017-08-15] MEDS: INSULIN REGULAR 100 UNIT/ML SUBCUT SCH ×5 (06:22→19:46)
[2017-08-15] MEDS: LEVOTHYROXINE 75 MCG TABLET PO SCH (06:22)
[2017-08-15 06:39] LABS: Anisocytosis 1+; Hypochromasia 1+; Macrocytosis Slight; Platelet Estimate Normal
[2017-08-15] MEDS ORDERED: ALBUMIN 25% 12.5 GM in PREMIX 1 EACH IV SCH (07:30)
[2017-08-15] MEDS: DORNASE ALFA 2.5 MG/2.5 ML VIAL RESP TX SCH ×2 (08:11→19:54)
[2017-08-15] MEDS: FUROSEMIDE INJ 200 MG in SODIUM CHLORIDE 0.9% 80 ML IV SCH (08:16)
[2017-08-15] MEDS: PANTOPRAZOLE 40 MG VIAL IV SCH ×2 (08:38→20:17)
[2017-08-15] MEDS: MONTELUKAST 10 MG TABLET PO SCH ×2 (08:39→20:17)
[2017-08-15] MEDS: ASCORBIC ACID 500 MG TABLET PO SCH ×2 (08:39→20:17)
[2017-08-15] MEDS: TICAGRELOR 90 MG TABLET PO SCH ×2 (08:39→20:17)
[2017-08-15] MEDS: ASPIRIN EC 81 MG TABLET PO SCH (08:39)
[2017-08-15] MEDS: CHLORHEXIDINE 0.12% ORAL RINSE 60 ML BOTTLE SWISH/SPIT SCH ×2 (08:40→22:08)
[2017-08-15] MEDS: MULTIVITAMIN LIQUID (CENTRUM) 60 ML BOTTLE PER TUBE SCH (08:40)
[2017-08-15] MEDS: LORATADINE 10 MG TABLET PO SCH (08:41)
[2017-08-15] MEDS: MORPHINE 2 MG/1 ML SYRINGE IV PRN ×2 (10:07→19:46)
[2017-08-15] MEDS: AMIODARONE INJ 450 MG in DEXTROSE 5% 241 ML IV SCH (10:33)
[2017-08-15] MEDS: ALBUMIN 25% 25 GM in PREMIX 1 EACH IV SCH ×2 (10:35→17:50)
[2017-08-15] MEDS: PHENYLEPHRINE INJ 80 MG in SODIUM CHLORIDE 0.9% 242 ML IV SCH ×2 (11:26→18:24)
[2017-08-15] MEDS: FUROSEMIDE 40 MG/4 ML VIAL IV SCH ×2 (13:33→17:37)
[2017-08-15] MEDS: cefTRIAXone 1,000 MG in SYRINGE 1 EACH IV SCH (17:37)
[2017-08-15] MEDS: ATORVASTATIN 80 MG TABLET PO SCH (20:17)
[2017-08-15] MEDS ORDERED: SUCCINYLCHOLINE 200 MG/10 ML VIAL ONE (22:26)
[2017-08-16] MEDS: INSULIN REGULAR 100 UNIT/ML SUBCUT SCH ×6 (00:15→21:06)
[2017-08-16] MEDS: ALBUMIN 25% 25 GM in PREMIX 1 EACH IV SCH ×3 (01:45→17:05)
[2017-08-16] MEDS: PROPOFOL 1,000 MG/100 ML BOTTLE IV SCH ×2 (02:53→11:10)
[2017-08-16] MEDS: AMIODARONE INJ 450 MG in DEXTROSE 5% 241 ML IV SCH ×2 (03:38→21:07)
[2017-08-16 04:38] LABS: ABG Base Excess 6.7 MMOL/L (-2.5-2.5); ABG HCO3 30.5 MMOL/L (20-26); ABG Oxygen Saturation 99.7 % (95-100); ABG PH 7.458 (7.35-7.45); ABG TCO2 29.2 MMOL/L (23-27)
[2017-08-16 04:40] LABS: Basophils % 0.1 % (0.0-0.8); Eosinophils % 0.1 % (0.00-10.9); Hematocrit 21.6 VOL% (42.0-52.0); Hemoglobin 7.2 GM/DL (14.0-18.0); Immature Granulocytes % 4.6 %; Immature Granulocytes Absolute 0.68 #; Lymphocytes # 0.5 10*3/uL (1.4-4.0); Lymphocytes % 3.6 % (21.2-54.2); Mean Corpuscular HGB Conc 33.3 GM/DL (32-36); Mean Corpuscular Hemoglobin 31 PG (27-34); Mean Corpuscular Volume 92.7 FL (87-102); Mean Platelet Volume 11.6 FL (9.6-12.0); Monocytes # 0.9 10*3/uL (0.11-0.8); Monocytes % 6.1 % (1.7-12.7); NRBC # 0.08 10*3/uL; Neutrophils # 12.5 10*3/uL (1.4-7.4); Neutrophils % 85.5 % (38.7-73.9); Platelet Count 112 T/CUMM (130-400); Red Blood Count 2.33 MC/CUMM (3.8-5.5); Red Cell Distribution Width 16.4 % (9.3-17.3); White Blood Count 14.6 T/CUMM (4-12)
[2017-08-16 05:04] LABS: Calcium 7.6 MG/DL (8.5-10.1); Osmolality,Calculated 317.8 MOS/KG (273-304); Potassium 3.4 MMOL/L (3.5-5.1); Prealbumin 21.1 MG/DL (20-40)
[2017-08-16 05:06] LABS: Band Neutrophils 3 % (0-10); Giant Platelets Few; Hypochromasia 1+; Lymphocytes 8 % (20-55); Ovalocytes Slight; Platelet Estimate Decreased; Segmented Neutrophils 85 % (50-85); Total Cells Counted 100
[2017-08-16] MEDS: LEVOTHYROXINE 75 MCG TABLET PO SCH (05:34)
[2017-08-16] MEDS: DORNASE ALFA 2.5 MG/2.5 ML VIAL RESP TX SCH ×2 (08:06→19:05)
[2017-08-16] MEDS: PANTOPRAZOLE 40 MG VIAL IV SCH ×2 (09:30→20:17)
[2017-08-16] MEDS: ASPIRIN EC 81 MG TABLET PO SCH (09:30)
[2017-08-16] MEDS: TICAGRELOR 90 MG TABLET PO SCH ×2 (09:30→20:16)
[2017-08-16] MEDS: MONTELUKAST 10 MG TABLET PO SCH ×2 (09:30→20:17)
[2017-08-16] MEDS: LORATADINE 10 MG TABLET PO SCH (09:30)
[2017-08-16] MEDS: ASCORBIC ACID 500 MG TABLET PO SCH ×2 (09:30→20:17)
[2017-08-16] MEDS: CHLORHEXIDINE 0.12% ORAL RINSE 60 ML BOTTLE SWISH/SPIT SCH ×2 (10:00→20:17)
[2017-08-16] MEDS: MULTIVITAMIN LIQUID (CENTRUM) 60 ML BOTTLE PER TUBE SCH (12:00)
[2017-08-16] MEDS: cefTRIAXone 1,000 MG in SYRINGE 1 EACH IV SCH (16:05)
[2017-08-16] MEDS: ATORVASTATIN 80 MG TABLET PO SCH (20:17)
[2017-08-16] MEDS: PHENYLEPHRINE INJ 160 MG in SODIUM CHLORIDE 0.9% 234 ML IV SCH (21:07)
[2017-08-16] MEDS: PHENYLEPHRINE INJ 80 MG in SODIUM CHLORIDE 0.9% 242 ML IV SCH (22:54)
[2017-08-17] MEDS: PROPOFOL 1,000 MG/100 ML BOTTLE IV SCH ×3 (00:19→12:00)
[2017-08-17] MEDS: INSULIN REGULAR 100 UNIT/ML SUBCUT SCH ×6 (00:20→21:05)
[2017-08-17] MEDS: ALBUMIN 25% 25 GM in PREMIX 1 EACH IV SCH ×3 (00:20→17:15)
[2017-08-17 04:52] LABS: Basophils % 0.1 % (0.0-0.8); Eosinophils # 0.1 10*3/uL (0.0-0.87); Eosinophils % 0.8 % (0.00-10.9); Hematocrit 21.9 VOL% (42.0-52.0); Hemoglobin 7.4 GM/DL (14.0-18.0); Immature Granulocytes % 4.7 %; Immature Granulocytes Absolute 0.71 #; Lymphocytes # 0.5 10*3/uL (1.4-4.0); Lymphocytes % 3.4 % (21.2-54.2); Mean Corpuscular HGB Conc 33.8 GM/DL (32-36); Mean Corpuscular Hemoglobin 31 PG (27-34); Mean Corpuscular Volume 92.4 FL (87-102); Mean Platelet Volume 10.9 FL (9.6-12.0); Monocytes # 0.7 10*3/uL (0.11-0.8); Monocytes % 4.4 % (1.7-12.7); NRBC # 0.03 10*3/uL; Neutrophils # 12.9 10*3/uL (1.4-7.4); Neutrophils % 86.6 % (38.7-73.9); Platelet Count 103 T/CUMM (130-400); Red Blood Count 2.37 MC/CUMM (3.8-5.5)
[2017-08-17 05:10] LABS: ABG Base Excess 7.1 MMOL/L (-2.5-2.5); ABG Oxygen Saturation 99.8 % (95-100); ABG PCO2 41.3 MM HG (35-48); ABG PH 7.487 (7.35-7.45); ABG TCO2 27.6 MMOL/L (23-27)
[2017-08-17 05:11] LABS: Band Neutrophils 1 % (0-10); Eosinophils 1 % (0-10); Lymphocytes 5 % (20-55); Segmented Neutrophils 90 % (50-85); Total Cells Counted 100
[2017-08-17 05:12] LABS: Giant Platelets Few; Hypochromasia 1+; Ovalocytes Slight; Platelet Estimate Decreased
[2017-08-17 05:13] LABS: Macrocytosis Slight
[2017-08-17 05:26] LABS: Calcium 8.1 MG/DL (8.5-10.1); Osmolality,Calculated 320.5 MOS/KG (273-304); Potassium 2.9 MMOL/L (3.5-5.1)
[2017-08-17] MEDS: POTASSIUM CHLORIDE RIDER 20 MEQ in PREMIX 1 EACH IV PRN ×3 (05:48→18:40)
[2017-08-17] MEDS: LEVOTHYROXINE 75 MCG TABLET PO SCH (06:05)
[2017-08-17] MEDS: DORNASE ALFA 2.5 MG/2.5 ML VIAL RESP TX SCH ×2 (07:54→19:23)
[2017-08-17] MEDS: CHLORHEXIDINE 0.12% ORAL RINSE 60 ML BOTTLE SWISH/SPIT SCH ×2 (08:00→20:28)
[2017-08-17] MEDS: MULTIVITAMIN LIQUID (CENTRUM) 60 ML BOTTLE PER TUBE SCH (09:00)
[2017-08-17] MEDS: PANTOPRAZOLE 40 MG VIAL IV SCH ×2 (09:00→20:27)
[2017-08-17] MEDS: LORATADINE 10 MG TABLET PO SCH (09:00)
[2017-08-17] MEDS: ASPIRIN EC 81 MG TABLET PO SCH (09:00)
[2017-08-17] MEDS: TICAGRELOR 90 MG TABLET PO SCH ×2 (09:00→20:27)
[2017-08-17] MEDS: ASCORBIC ACID 500 MG TABLET PO SCH ×2 (09:00→20:27)
[2017-08-17] MEDS: MONTELUKAST 10 MG TABLET PO SCH ×2 (09:00→20:27)
[2017-08-17] MEDS: FUROSEMIDE 40 MG/4 ML VIAL IV SCH ×2 (09:40→16:05)
[2017-08-17] MEDS: AMIODARONE INJ 450 MG in DEXTROSE 5% 241 ML IV SCH (15:15)
[2017-08-17] MEDS: cefTRIAXone 1,000 MG in SYRINGE 1 EACH IV SCH (16:05)
[2017-08-17 17:24] LABS: Hematocrit 27.6 VOL% (42.0-52.0); Hemoglobin 9.2 GM/DL (14.0-18.0)
[2017-08-17] MEDS: PHENYLEPHRINE INJ 80 MG in SODIUM CHLORIDE 0.9% 242 ML IV SCH (19:43)
[2017-08-17] MEDS: ATORVASTATIN 80 MG TABLET PO SCH (20:27)
[2017-08-17] MEDS: MORPHINE 10 MG/1 ML VIAL IV PRN (21:43)
[2017-08-18] MEDS: INSULIN REGULAR 100 UNIT/ML SUBCUT SCH ×6 (00:22→20:24)
[2017-08-18] MEDS: ALBUMIN 25% 25 GM in PREMIX 1 EACH IV SCH ×3 (00:48→17:53)
[2017-08-18] MEDS: PROPOFOL 1,000 MG/100 ML BOTTLE IV SCH ×3 (02:33→17:34)
[2017-08-18 02:49] LABS: Basophils % 0.1 % (0.0-0.8); Eosinophils # 0.1 10*3/uL (0.0-0.87); Eosinophils % 0.7 % (0.00-10.9); Hematocrit 25.8 VOL% (42.0-52.0); Hemoglobin 8.6 GM/DL (14.0-18.0); Immature Granulocytes % 1.9 %; Immature Granulocytes Absolute 0.29 #; Lymphocytes # 0.3 10*3/uL (1.4-4.0); Lymphocytes % 2.1 % (21.2-54.2); Mean Corpuscular HGB Conc 33.3 GM/DL (32-36); Mean Corpuscular Hemoglobin 30 PG (27-34); Mean Corpuscular Volume 90.2 FL (87-102); Mean Platelet Volume 11.5 FL (9.6-12.0); Monocytes # 0.4 10*3/uL (0.11-0.8); Monocytes % 2.7 % (1.7-12.7); NRBC # 0.02 10*3/uL; Neutrophils # 14.4 10*3/uL (1.4-7.4); Neutrophils % 92.5 % (38.7-73.9); Platelet Count 89 T/CUMM (130-400); Red Blood Count 2.86 MC/CUMM (3.8-5.5); Red Cell Distribution Width 17.2 % (9.3-17.3); White Blood Count 15.5 T/CUMM (4-12)
[2017-08-18 03:11] LABS: Band Neutrophils 1 % (0-10); Eosinophils 2 % (0-10); Lymphocytes 4 % (20-55); Segmented Neutrophils 90 % (50-85); Total Cells Counted 100
[2017-08-18 03:12] LABS: Macrocytosis 1+; Platelet Estimate Decreased
[2017-08-18 03:27] LABS: Calcium 8.2 MG/DL (8.5-10.1); Osmolality,Calculated 323.7 MOS/KG (273-304); Potassium 3.2 MMOL/L (3.5-5.1)
[2017-08-18] MEDS: POTASSIUM CHLORIDE RIDER 20 MEQ in PREMIX 1 EACH IV PRN (05:40)
[2017-08-18] MEDS: LEVOTHYROXINE 75 MCG TABLET PO SCH (06:02)
[2017-08-18] MEDS: AMIODARONE INJ 450 MG in DEXTROSE 5% 241 ML IV SCH ×2 (06:03→13:01)
[2017-08-18] MEDS: PHENYLEPHRINE INJ 160 MG in SODIUM CHLORIDE 0.9% 234 ML IV SCH (06:03)
[2017-08-18] MEDS: DORNASE ALFA 2.5 MG/2.5 ML VIAL RESP TX SCH ×2 (06:55→19:04)
[2017-08-18] MEDS: PANTOPRAZOLE 40 MG VIAL IV SCH ×2 (09:59→20:24)
[2017-08-18] MEDS: MONTELUKAST 10 MG TABLET PO SCH ×2 (09:59→20:26)
[2017-08-18] MEDS: FUROSEMIDE 40 MG/4 ML VIAL IV SCH ×2 (09:59→17:49)
[2017-08-18] MEDS: ASPIRIN EC 81 MG TABLET PO SCH (09:59)
[2017-08-18] MEDS: ASCORBIC ACID 500 MG TABLET PO SCH ×2 (10:00→20:26)
[2017-08-18] MEDS: TICAGRELOR 90 MG TABLET PO SCH ×2 (10:00→20:26)
[2017-08-18] MEDS: CHLORHEXIDINE 0.12% ORAL RINSE 60 ML BOTTLE SWISH/SPIT SCH ×2 (10:00→20:26)
[2017-08-18 10:11] LABS: ABG Base Excess 7.6 MMOL/L (-2.5-2.5); ABG HCO3 31.8 MMOL/L (20-26); ABG Oxygen Saturation 97.5 % (95-100); ABG PCO2 43.7 MM HG (35-48); ABG PO2 109.1 MM HG (80-95); ABG TCO2 33.2 MMOL/L (23-27)
[2017-08-18] MEDS: LORATADINE 10 MG TABLET PO SCH (11:10)
[2017-08-18] MEDS: MULTIVITAMIN LIQUID (CENTRUM) 60 ML BOTTLE PER TUBE SCH (11:10)
[2017-08-18] MEDS: cefTRIAXone 1,000 MG in SYRINGE 1 EACH IV SCH (17:49)
[2017-08-18] MEDS: MORPHINE 10 MG/1 ML VIAL IV PRN (20:25)
[2017-08-18] MEDS: ATORVASTATIN 80 MG TABLET PO SCH (20:26)
[2017-08-19] MEDS: ALBUMIN 25% 25 GM in PREMIX 1 EACH IV SCH (00:26)
[2017-08-19] MEDS: INSULIN REGULAR 100 UNIT/ML SUBCUT SCH ×4 (00:39→12:16)
[2017-08-19] MEDS: PROPOFOL 1,000 MG/100 ML BOTTLE IV SCH ×2 (02:19→09:05)
[2017-08-19 02:56] LABS: ABG Base Excess 7.4 MMOL/L (-2.5-2.5); ABG HCO3 31.3 MMOL/L (20-26); ABG Oxygen Saturation 98.1 % (95-100); ABG PCO2 49.6 MM HG (35-48); ABG PH 7.429 (7.35-7.45); ABG PO2 98.2 MM HG (80-95); ABG TCO2 30.4 MMOL/L (23-27); Pt O2 Delivery Device Ventilator
[2017-08-19] MEDS: AMIODARONE INJ 450 MG in DEXTROSE 5% 241 ML IV SCH (03:16)
[2017-08-19] MEDS: PHENYLEPHRINE INJ 160 MG in SODIUM CHLORIDE 0.9% 234 ML IV SCH (03:29)
[2017-08-19 03:41] LABS: Basophils % 0.2 % (0.0-0.8); Eosinophils # 0.2 10*3/uL (0.0-0.87); Eosinophils % 0.8 % (0.00-10.9); Hematocrit 23.7 VOL% (42.0-52.0); Immature Granulocytes % 1.2 %; Immature Granulocytes Absolute 0.22 #; Lymphocytes # 0.3 10*3/uL (1.4-4.0); Lymphocytes % 1.6 % (21.2-54.2); Mean Corpuscular HGB Conc 33.8 GM/DL (32-36); Mean Corpuscular Hemoglobin 30 PG (27-34); Mean Corpuscular Volume 89.4 FL (87-102); Mean Platelet Volume 11.8 FL (9.6-12.0); Monocytes # 0.5 10*3/uL (0.11-0.8); Monocytes % 2.7 % (1.7-12.7); Neutrophils # 16.8 10*3/uL (1.4-7.4); Neutrophils % 93.5 % (38.7-73.9); Platelet Count 98 T/CUMM (130-400); Red Blood Count 2.65 MC/CUMM (3.8-5.5); Red Cell Distribution Width 17.4 % (9.3-17.3)
[2017-08-19 04:07] LABS: Calcium 8.1 MG/DL (8.5-10.1); Osmolality,Calculated 328.7 MOS/KG (273-304); Potassium 3.2 MMOL/L (3.5-5.1)
[2017-08-19 04:23] LABS: Eosinophils 1 % (0-10); Lymphocytes 1 % (20-55); Platelet Estimate Decreased; Segmented Neutrophils 96 % (50-85); Total Cells Counted 100
[2017-08-19] MEDS: LEVOTHYROXINE 75 MCG TABLET PO SCH (05:37)
[2017-08-19] MEDS: POTASSIUM CHLORIDE RIDER 20 MEQ in PREMIX 1 EACH IV PRN ×2 (07:03→08:50)
[2017-08-19] MEDS: DORNASE ALFA 2.5 MG/2.5 ML VIAL RESP TX SCH ×2 (07:09→19:12)
[2017-08-19] MEDS: FUROSEMIDE 40 MG/4 ML VIAL IV SCH ×2 (09:11→16:06)
[2017-08-19] MEDS: MORPHINE 10 MG/1 ML VIAL IV PRN ×3 (09:21→22:52)
[2017-08-19] MEDS: ASCORBIC ACID 500 MG TABLET PO SCH ×2 (09:40→22:59)
[2017-08-19] MEDS: MONTELUKAST 10 MG TABLET PO SCH ×2 (09:40→22:59)
[2017-08-19] MEDS: TICAGRELOR 90 MG TABLET PO SCH (09:40)
[2017-08-19] MEDS: LORATADINE 10 MG TABLET PO SCH (09:41)
[2017-08-19] MEDS: ASPIRIN EC 81 MG TABLET PO SCH (09:41)
[2017-08-19] MEDS: PANTOPRAZOLE 40 MG VIAL IV SCH ×2 (09:42→22:53)
[2017-08-19] MEDS: CHLORHEXIDINE 0.12% ORAL RINSE 60 ML BOTTLE SWISH/SPIT SCH ×2 (09:45→22:59)
[2017-08-19] MEDS: MULTIVITAMIN LIQUID (CENTRUM) 60 ML BOTTLE PER TUBE SCH (09:45)
[2017-08-19] MEDS ORDERED: METOPROLOL TARTRATE 25 MG TABLET PO SCH (12:30)
[2017-08-19] MEDS ORDERED: SODIUM CHLORIDE 0.9% 1,000 ML IV PRN (15:50)
[2017-08-19] MEDS: cefTRIAXone 1,000 MG in SYRINGE 1 EACH IV SCH (16:09)
[2017-08-19] MEDS: CALCIUM ACETATE 667 MG CAPSULE PO SCH (17:15)
[2017-08-19] MEDS ORDERED: AMIODARONE INJ 450 MG in DEXTROSE 5% 241 ML IV SCH (20:30)
[2017-08-19] MEDS: ATORVASTATIN 80 MG TABLET PO SCH (22:58)
[2017-08-20] MEDS: PHENYLEPHRINE DRIP 40 MG/250 ML PREMIX IV SCH ×2 (00:08→14:05)
[2017-08-20] MEDS ORDERED: PHENYLEPHRINE DRIP 40 MG/250 ML PREMIX IV ONE (01:08)
[2017-08-20] MEDS: LEVOTHYROXINE 75 MCG TABLET PO SCH (05:48)
[2017-08-20 05:50] LABS: Basophils % 0.1 % (0.0-0.8); Eosinophils # 0.2 10*3/uL (0.0-0.87); Eosinophils % 0.9 % (0.00-10.9); Hematocrit 28.8 VOL% (42.0-52.0); Hemoglobin 9.4 GM/DL (14.0-18.0); Immature Granulocytes % 1.4 %; Immature Granulocytes Absolute 0.28 #; Lymphocytes # 0.3 10*3/uL (1.4-4.0); Lymphocytes % 1.5 % (21.2-54.2); Mean Corpuscular HGB Conc 32.6 GM/DL (32-36); Mean Corpuscular Hemoglobin 30 PG (27-34); Mean Corpuscular Volume 92.3 FL (87-102); Mean Platelet Volume 12.1 FL (9.6-12.0); Monocytes # 0.9 10*3/uL (0.11-0.8); Monocytes % 4.3 % (1.7-12.7); Neutrophils # 18.4 10*3/uL (1.4-7.4); Neutrophils % 91.8 % (38.7-73.9); Platelet Count 141 T/CUMM (130-400); Red Blood Count 3.12 MC/CUMM (3.8-5.5); Red Cell Distribution Width 16.9 % (9.3-17.3); White Blood Count 20.1 T/CUMM (4-12)
[2017-08-20 06:22] LABS: Calcium 8.2 MG/DL (8.5-10.1); Potassium 3.4 MMOL/L (3.5-5.1)
[2017-08-20 06:50] LABS: Band Neutrophils 2 % (0-10); Hypochromasia 1+; Lymphocytes 1 % (20-55); Macrocytosis 2+; Platelet Estimate Adequate; Polychromasia Slight; Segmented Neutrophils 95 % (50-85); Target Cells Slight; Total Cells Counted 100
[2017-08-20] MEDS: DORNASE ALFA 2.5 MG/2.5 ML VIAL RESP TX SCH ×2 (07:38→19:09)
[2017-08-20] MEDS: ASCORBIC ACID 500 MG TABLET PO SCH ×2 (08:10→20:27)
[2017-08-20] MEDS: AMIODARONE 200 MG TABLET PO SCH (08:10)
[2017-08-20] MEDS: CALCIUM ACETATE 667 MG CAPSULE PO SCH ×3 (08:10→17:30)
[2017-08-20] MEDS: PANTOPRAZOLE 40 MG VIAL IV SCH ×2 (08:10→20:27)
[2017-08-20] MEDS: LORATADINE 10 MG TABLET PO SCH (08:10)
[2017-08-20] MEDS: CHLORHEXIDINE 0.12% ORAL RINSE 60 ML BOTTLE SWISH/SPIT SCH ×2 (08:10→20:37)
[2017-08-20] MEDS: MONTELUKAST 10 MG TABLET PO SCH ×2 (08:10→20:27)
[2017-08-20] MEDS: ASPIRIN EC 81 MG TABLET PO SCH (08:10)
[2017-08-20] MEDS: FUROSEMIDE 40 MG/4 ML VIAL IV SCH ×2 (08:12→16:10)
[2017-08-20] MEDS: DUTASTERIDE 0.5 MG CAPSULE PO SCH (14:05)
[2017-08-20] MEDS: cefTRIAXone 1,000 MG in SYRINGE 1 EACH IV SCH (16:12)
[2017-08-20] MEDS: ATORVASTATIN 80 MG TABLET PO SCH (20:27)
[2017-08-20] MEDS ORDERED: ZALEPLON 5 MG CAPSULE PO PRN (21:19)
[2017-08-20] MEDS: MORPHINE 10 MG/1 ML VIAL IV PRN (23:57)
[2017-08-21 03:49] LABS: ABG Base Excess 5.6 MMOL/L (-2.5-2.5); ABG HCO3 31.5 MMOL/L (20-26); ABG Oxygen Saturation 95.1 % (95-100); ABG PCO2 52.3 MM HG (35-48); ABG PH 7.397 (7.35-7.45); ABG PO2 85.1 MM HG (80-95); ABG TCO2 33.1 MMOL/L (23-27); Allen Test Positive
[2017-08-21 04:08] LABS: Basophils % 0.1 % (0.0-0.8); Eosinophils # 0.2 10*3/uL (0.0-0.87); Hematocrit 30.2 VOL% (42.0-52.0); Hemoglobin 9.8 GM/DL (14.0-18.0); Immature Granulocytes % 1.2 %; Immature Granulocytes Absolute 0.23 #; Lymphocytes # 0.4 10*3/uL (1.4-4.0); Lymphocytes % 1.9 % (21.2-54.2); Mean Corpuscular HGB Conc 32.5 GM/DL (32-36); Mean Corpuscular Hemoglobin 30 PG (27-34); Mean Corpuscular Volume 92.4 FL (87-102); Mean Platelet Volume 11.8 FL (9.6-12.0); Neutrophils # 18.1 10*3/uL (1.4-7.4); Neutrophils % 90.8 % (38.7-73.9); Platelet Count 163 T/CUMM (130-400); Red Blood Count 3.27 MC/CUMM (3.8-5.5); Red Cell Distribution Width 16.5 % (9.3-17.3)
[2017-08-21 04:50] LABS: Bilirubin,Total 1.1 MG/DL (0.2-1.0); Calcium 8.3 MG/DL (8.5-10.1); Osmolality,Calculated 336.8 MOS/KG (273-304); Potassium 3.8 MMOL/L (3.5-5.1); Total Protein 5.3 G/DL (6.4-8.3)
[2017-08-21 04:56] LABS: Lymphocytes 2 % (20-55); Segmented Neutrophils 93 % (50-85)
[2017-08-21 04:58] LABS: Hypochromasia 1+; Target Cells Few
[2017-08-21 05:01] LABS: Platelet Estimate Normal
[2017-08-21 05:02] LABS: Total Cells Counted 100
[2017-08-21 05:20] LABS: Calcium 8.3 MG/DL (8.5-10.1); Osmolality,Calculated 328.4 MOS/KG (273-304); Potassium 3.7 MMOL/L (3.5-5.1)
[2017-08-21] MEDS: MORPHINE 10 MG/1 ML VIAL IV PRN ×5 (06:07→23:55)
[2017-08-21] MEDS: LEVOTHYROXINE 75 MCG TABLET PO SCH (06:08)
[2017-08-21] MEDS: PHENYLEPHRINE DRIP 40 MG/250 ML PREMIX IV SCH ×2 (06:12→22:37)
[2017-08-21] MEDS: DORNASE ALFA 2.5 MG/2.5 ML VIAL RESP TX SCH ×2 (07:31→19:53)
[2017-08-21] MEDS: CALCIUM ACETATE 667 MG CAPSULE PO SCH ×3 (08:00→17:00)
[2017-08-21] MEDS: FUROSEMIDE 40 MG/4 ML VIAL IV SCH (08:00)
[2017-08-21] MEDS: DUTASTERIDE 0.5 MG CAPSULE PO SCH (09:10)
[2017-08-21] MEDS: CHLORHEXIDINE 0.12% ORAL RINSE 60 ML BOTTLE SWISH/SPIT SCH ×2 (09:10→20:41)
[2017-08-21] MEDS: ASPIRIN EC 81 MG TABLET PO SCH (09:10)
[2017-08-21] MEDS: MONTELUKAST 10 MG TABLET PO SCH ×2 (09:10→20:41)
[2017-08-21] MEDS: ASCORBIC ACID 500 MG TABLET PO SCH ×2 (09:10→20:41)
[2017-08-21] MEDS: PANTOPRAZOLE 40 MG VIAL IV SCH ×2 (09:10→20:40)
[2017-08-21] MEDS: AMIODARONE 200 MG TABLET PO SCH (09:10)
[2017-08-21] MEDS: LORATADINE 10 MG TABLET PO SCH (09:10)
[2017-08-21] MEDS: SODIUM CHLORIDE 0.9% 1,000 ML IV SCH (11:20)
[2017-08-21] MEDS ORDERED: DILTIAZEM 50 MG/10 ML VIAL IV ONE (13:41)
[2017-08-21] MEDS: DILTIAZEM INJ 100 MG in SODIUM CHLORIDE 0.9% 100 ML IV SCH (14:15)
[2017-08-21] MEDS: DESITIN 4OZ/NYSTATIN 15 GRAM MIXTURE PASTE TOP SCH ×2 (16:00→20:42)
[2017-08-21] MEDS: cefTRIAXone 1,000 MG in SYRINGE 1 EACH IV SCH (16:05)
[2017-08-21] MEDS: ATORVASTATIN 80 MG TABLET PO SCH (20:41)
[2017-08-21] MEDS: POLYVINYL ALCOHOL 1.4% OPH SOLN 15 ML BOTTLE LEFT EYE PRN (20:47)
[2017-08-22 03:43] LABS: ABG Base Excess 3.8 MMOL/L (-2.5-2.5); ABG HCO3 27.8 MMOL/L (20-26); ABG Oxygen Saturation 95.5 % (95-100); ABG PCO2 53.8 MM HG (35-48); ABG PH 7.358 (7.35-7.45); ABG PO2 82.8 MM HG (80-95); ABG TCO2 27.7 MMOL/L (23-27)
[2017-08-22] MEDS: MORPHINE 10 MG/1 ML VIAL IV PRN ×3 (04:00→23:46)
[2017-08-22 04:21] LABS: Basophils % 0.1 % (0.0-0.8); Eosinophils # 0.1 10*3/uL (0.0-0.87); Eosinophils % 0.7 % (0.00-10.9); Hematocrit 29.4 VOL% (42.0-52.0); Hemoglobin 9.8 GM/DL (14.0-18.0); Immature Granulocytes % 1.1 %; Lymphocytes # 0.4 10*3/uL (1.4-4.0); Mean Corpuscular HGB Conc 33.3 GM/DL (32-36); Mean Corpuscular Hemoglobin 30 PG (27-34); Mean Corpuscular Volume 90.7 FL (87-102); Mean Platelet Volume 11.8 FL (9.6-12.0); Monocytes % 5.6 % (1.7-12.7); Neutrophils # 16.8 10*3/uL (1.4-7.4); Neutrophils % 90.5 % (38.7-73.9); Platelet Count 198 T/CUMM (130-400); Red Blood Count 3.24 MC/CUMM (3.8-5.5); Red Cell Distribution Width 16.5 % (9.3-17.3); White Blood Count 18.5 T/CUMM (4-12)
[2017-08-22 04:50] LABS: Albumin 2.7 G/DL (3.4-5.0); Bilirubin,Total 1.2 MG/DL (0.2-1.0); Calcium 8.4 MG/DL (8.5-10.1); Potassium 4.1 MMOL/L (3.5-5.1); Total Protein 5.1 G/DL (6.4-8.3)
[2017-08-22 05:00] LABS: Anisocytosis 1+; Band Neutrophils 7 % (0-10); Lymphocytes 2 % (20-55); Segmented Neutrophils 88 % (50-85); Total Cells Counted 100
[2017-08-22 05:07] LABS: Albumin 2.8 G/DL (3.4-5.0); Calcium 8.1 MG/DL (8.5-10.1); Osmolality,Calculated 336.1 MOS/KG (273-304)
[2017-08-22] MEDS: LEVOTHYROXINE 75 MCG TABLET PO SCH (06:24)
[2017-08-22] MEDS: SODIUM CHLORIDE 0.9% 1,000 ML IV SCH (06:25)
[2017-08-22] MEDS: DORNASE ALFA 2.5 MG/2.5 ML VIAL RESP TX SCH ×2 (07:03→19:22)
[2017-08-22] MEDS: PANTOPRAZOLE 40 MG VIAL IV SCH ×2 (08:49→20:29)
[2017-08-22] MEDS: LORATADINE 10 MG TABLET PO SCH (08:50)
[2017-08-22] MEDS: ASCORBIC ACID 500 MG TABLET PO SCH ×2 (08:50→20:29)
[2017-08-22] MEDS: CHLORHEXIDINE 0.12% ORAL RINSE 60 ML BOTTLE SWISH/SPIT SCH ×2 (08:50→20:30)
[2017-08-22] MEDS: ASPIRIN EC 81 MG TABLET PO SCH (08:50)
[2017-08-22] MEDS: DUTASTERIDE 0.5 MG CAPSULE PO SCH (08:50)
[2017-08-22] MEDS: MONTELUKAST 10 MG TABLET PO SCH ×2 (08:50→20:29)
[2017-08-22] MEDS: AMIODARONE 200 MG TABLET PO SCH (08:50)
[2017-08-22] MEDS: DESITIN 4OZ/NYSTATIN 15 GRAM MIXTURE PASTE TOP SCH ×2 (08:51→20:30)
[2017-08-22] MEDS: DILTIAZEM INJ 100 MG in SODIUM CHLORIDE 0.9% 100 ML IV SCH ×2 (09:36→13:50)
[2017-08-22] MEDS: CALCIUM ACETATE 667 MG CAPSULE PO SCH ×3 (10:13→18:21)
[2017-08-22] MEDS: PHENYLEPHRINE DRIP 40 MG/250 ML PREMIX IV SCH ×2 (13:23→16:49)
[2017-08-22] MEDS: TROLAMINE SALICYLATE 10% CREAM 85 GM TUBE TOP PRN (16:30)
[2017-08-22] MEDS: cefTRIAXone 1,000 MG in SYRINGE 1 EACH IV SCH (16:47)
[2017-08-22] MEDS: ATORVASTATIN 80 MG TABLET PO SCH (20:29)
[2017-08-22] MEDS: POLYVINYL ALCOHOL 1.4% OPH SOLN 15 ML BOTTLE LEFT EYE PRN (20:31)
[2017-08-23] MEDS: SODIUM CHLORIDE 0.9% 1,000 ML IV SCH (03:00)
[2017-08-23] MEDS: DILTIAZEM INJ 100 MG in SODIUM CHLORIDE 0.9% 100 ML IV SCH ×2 (03:01→17:39)
[2017-08-23 03:51] LABS: ABG Base Excess 1.3 MMOL/L (-2.5-2.5); ABG HCO3 25.5 MMOL/L (20-26); ABG Oxygen Saturation 93.5 % (95-100); ABG PCO2 53.4 MM HG (35-48); ABG PH 7.329 (7.35-7.45); ABG PO2 75.3 MM HG (80-95); ABG TCO2 25.8 MMOL/L (23-27)
[2017-08-23 04:03] LABS: Basophils % 0.1 % (0.0-0.8); Eosinophils # 0.1 10*3/uL (0.0-0.87); Eosinophils % 0.7 % (0.00-10.9); Hematocrit 30.2 VOL% (42.0-52.0); Hemoglobin 9.7 GM/DL (14.0-18.0); Immature Granulocytes % 1.1 %; Immature Granulocytes Absolute 0.21 #; Lymphocytes # 0.4 10*3/uL (1.4-4.0); Lymphocytes % 1.9 % (21.2-54.2); Mean Corpuscular HGB Conc 32.1 GM/DL (32-36); Mean Corpuscular Hemoglobin 30 PG (27-34); Mean Corpuscular Volume 93.8 FL (87-102); Mean Platelet Volume 11.9 FL (9.6-12.0); Monocytes # 1.1 10*3/uL (0.11-0.8); Neutrophils # 17.1 10*3/uL (1.4-7.4); Neutrophils % 90.2 % (38.7-73.9); Platelet Count 222 T/CUMM (130-400); Red Blood Count 3.22 MC/CUMM (3.8-5.5); Red Cell Distribution Width 16.2 % (9.3-17.3)
[2017-08-23 04:33] LABS: Albumin 2.8 G/DL (3.4-5.0); Bilirubin,Total 1.9 MG/DL (0.2-1.0); Calcium 8.6 MG/DL (8.5-10.1); Osmolality,Calculated 330.2 MOS/KG (273-304); Potassium 4.5 MMOL/L (3.5-5.1); Total Protein 5.1 G/DL (6.4-8.3)
[2017-08-23 04:34] LABS: Band Neutrophils 1 % (0-10); Lymphocytes 2 % (20-55); Segmented Neutrophils 93 % (50-85); Total Cells Counted 100
[2017-08-23 04:36] LABS: Hypochromasia 1+; Platelet Estimate Normal
[2017-08-23 04:49] LABS: Albumin 2.8 G/DL (3.4-5.0); Calcium 8.8 MG/DL (8.5-10.1); Osmolality,Calculated 328.5 MOS/KG (273-304); Potassium 4.4 MMOL/L (3.5-5.1)
[2017-08-23] MEDS: LEVOTHYROXINE 75 MCG TABLET PO SCH (05:30)
[2017-08-23] MEDS: PHENYLEPHRINE DRIP 40 MG/250 ML PREMIX IV SCH ×2 (07:12→17:39)
[2017-08-23] MEDS: DORNASE ALFA 2.5 MG/2.5 ML VIAL RESP TX SCH ×2 (07:24→17:17)
[2017-08-23] MEDS: ASPIRIN EC 81 MG TABLET PO SCH (08:28)
[2017-08-23] MEDS: PANTOPRAZOLE 40 MG VIAL IV SCH ×2 (08:28→21:19)
[2017-08-23] MEDS: DUTASTERIDE 0.5 MG CAPSULE PO SCH (08:28)
[2017-08-23] MEDS: LORATADINE 10 MG TABLET PO SCH (08:28)
[2017-08-23] MEDS: AMIODARONE 200 MG TABLET PO SCH (08:28)
[2017-08-23] MEDS: CALCIUM ACETATE 667 MG CAPSULE PO SCH ×3 (08:28→16:47)
[2017-08-23] MEDS: MONTELUKAST 10 MG TABLET PO SCH ×2 (08:28→21:17)
[2017-08-23] MEDS: DESITIN 4OZ/NYSTATIN 15 GRAM MIXTURE PASTE TOP SCH ×2 (08:29→22:47)
[2017-08-23] MEDS: CHLORHEXIDINE 0.12% ORAL RINSE 60 ML BOTTLE SWISH/SPIT SCH ×2 (08:30→21:24)
[2017-08-23 09:02] LABS: INR 1.1; PT Patient Result 11.9 SECS; Partial Thromboplastin Time 29.7 SECS (0-40)
[2017-08-23] MEDS: ASCORBIC ACID 500 MG TABLET PO SCH ×2 (09:49→21:19)
[2017-08-23 09:52] LABS: Hepatitis A Ab IgM Quant 0.13 Index; Hepatitis A Ab IgM Result Negative (Negative); Hepatitis B Core IgM Quant 0.06 Index; Hepatitis B Core IgM Result Negative (Negative); Hepatitis B Surface Ag Quant < 0.10 Index; Hepatitis B Surface Ag Result Negative (Negative); Hepatitis C Virus Ab Quant 0.04 Index; Hepatitis C Virus Ab Result Negative (Negative)
[2017-08-23] MEDS ORDERED: ceFAZolin 1,000 MG in SYRINGE 1 EACH IV ONE (10:00)
[2017-08-23] MEDS: METOPROLOL TARTRATE 25 MG TABLET PO SCH ×3 (12:23→21:16)
[2017-08-23] MEDS ORDERED: METOPROLOL TARTRATE 25 MG TABLET PO SCH (13:00)
[2017-08-23] MEDS ORDERED: HEPARIN 5,000 UNIT/1 ML VIAL ONE (14:13)
[2017-08-23] MEDS ORDERED: SODIUM CHLORIDE 0.9% 100 ML IV ONE (15:30)
[2017-08-23] MEDS ORDERED: KETAMINE 500 MG/10 ML VIAL ONE (15:30)
[2017-08-23] MEDS ORDERED: GLYCOPYRROLATE 0.4 MG/2 ML VIAL ONE (15:30)
[2017-08-23] MEDS ORDERED: MIDAZOLAM 2 MG/2 ML VIAL ONE (15:30)
[2017-08-23] MEDS: cefTRIAXone 1,000 MG in SYRINGE 1 EACH IV SCH (16:46)
[2017-08-23] MEDS: LEVALBUTEROL 1.25 MG/3 ML NEB RESP TX SCH ×2 (17:08→23:29)
[2017-08-23] MEDS: ATORVASTATIN 80 MG TABLET PO SCH (21:17)
[2017-08-24] MEDS: LEVALBUTEROL 1.25 MG/3 ML NEB RESP TX SCH ×6 (03:58→23:50)
[2017-08-24] MEDS ORDERED: ceFAZolin 1,000 MG in SYRINGE 1 EACH IV ONE (06:00)
[2017-08-24] MEDS: LEVOTHYROXINE 75 MCG TABLET PO SCH (07:11)
[2017-08-24] MEDS: DORNASE ALFA 2.5 MG/2.5 ML VIAL RESP TX SCH ×2 (07:32→19:37)
[2017-08-24] MEDS: MONTELUKAST 10 MG TABLET PO SCH ×2 (08:09→21:22)
[2017-08-24] MEDS: CALCIUM ACETATE 667 MG CAPSULE PO SCH ×3 (08:09→17:51)
[2017-08-24] MEDS: LORATADINE 10 MG TABLET PO SCH (08:09)
[2017-08-24] MEDS: AMIODARONE 200 MG TABLET PO SCH (08:09)
[2017-08-24] MEDS: METOPROLOL TARTRATE 25 MG TABLET PO SCH ×4 (08:09→21:22)
[2017-08-24] MEDS: DUTASTERIDE 0.5 MG CAPSULE PO SCH (08:09)
[2017-08-24] MEDS: ASCORBIC ACID 500 MG TABLET PO SCH ×2 (08:09→21:22)
[2017-08-24] MEDS: ASPIRIN EC 81 MG TABLET PO SCH (08:09)
[2017-08-24] MEDS: CHLORHEXIDINE 0.12% ORAL RINSE 60 ML BOTTLE SWISH/SPIT SCH ×2 (08:09→21:22)
[2017-08-24] MEDS: PANTOPRAZOLE 40 MG VIAL IV SCH ×2 (08:10→21:21)
[2017-08-24] MEDS: DESITIN 4OZ/NYSTATIN 15 GRAM MIXTURE PASTE TOP SCH ×2 (08:10→21:23)
[2017-08-24 08:36] LABS: Basophils % 0.1 % (0.0-0.8); Eosinophils # 0.1 10*3/uL (0.0-0.87); Eosinophils % 0.3 % (0.00-10.9); Hematocrit 28.5 VOL% (42.0-52.0); Hemoglobin 9.1 GM/DL (14.0-18.0); Immature Granulocytes % 0.8 %; Immature Granulocytes Absolute 0.15 #; Lymphocytes # 0.3 10*3/uL (1.4-4.0); Lymphocytes % 1.5 % (21.2-54.2); Mean Corpuscular HGB Conc 31.9 GM/DL (32-36); Mean Corpuscular Hemoglobin 30 PG (27-34); Mean Corpuscular Volume 94.1 FL (87-102); Mean Platelet Volume 11.5 FL (9.6-12.0); Monocytes # 0.9 10*3/uL (0.11-0.8); Monocytes % 4.8 % (1.7-12.7); Neutrophils # 16.4 10*3/uL (1.4-7.4); Neutrophils % 92.5 % (38.7-73.9); Platelet Count 210 T/CUMM (130-400); Red Blood Count 3.03 MC/CUMM (3.8-5.5); Red Cell Distribution Width 16.7 % (9.3-17.3); White Blood Count 17.7 T/CUMM (4-12)
[2017-08-24 09:00] LABS: Band Neutrophils 1 % (0-10); Eosinophils 1 % (0-10); Lymphocytes 1 % (20-55); Segmented Neutrophils 92 % (50-85); Total Cells Counted 100
[2017-08-24 09:01] LABS: Hypochromasia 1+; Microcytosis 1+; Ovalocytes Slight; Platelet Estimate Normal
[2017-08-24 09:11] LABS: Calcium 8.8 MG/DL (8.5-10.1); Osmolality,Calculated 322.1 MOS/KG (273-304); Potassium 4.6 MMOL/L (3.5-5.1)
[2017-08-24] MEDS: PHENYLEPHRINE DRIP 40 MG/250 ML PREMIX IV SCH ×3 (09:14→18:40)
[2017-08-24] MEDS: MORPHINE 10 MG/1 ML VIAL IV PRN (11:34)
[2017-08-24] MEDS ORDERED: ZIPRASIDONE 20 MG/1 ML VIAL IM PRN (14:42)
[2017-08-24] MEDS: DILTIAZEM INJ 100 MG in SODIUM CHLORIDE 0.9% 100 ML IV SCH (15:29)
[2017-08-24] MEDS: cefTRIAXone 1,000 MG in SYRINGE 1 EACH IV SCH (15:52)
[2017-08-24] MEDS: ATORVASTATIN 80 MG TABLET PO SCH (21:22)
[2017-08-25] MEDS: PHENYLEPHRINE DRIP 40 MG/250 ML PREMIX IV SCH ×2 (00:32→15:50)
[2017-08-25] MEDS: LEVALBUTEROL 1.25 MG/3 ML NEB RESP TX SCH ×5 (03:55→20:09)
[2017-08-25 04:43] LABS: Basophils % 0.1 % (0.0-0.8); Eosinophils # 0.1 10*3/uL (0.0-0.87); Eosinophils % 0.3 % (0.00-10.9); Hematocrit 29.1 VOL% (42.0-52.0); Hemoglobin 9.5 GM/DL (14.0-18.0); Immature Granulocytes % 0.6 %; Immature Granulocytes Absolute 0.13 #; Lymphocytes # 0.3 10*3/uL (1.4-4.0); Lymphocytes % 1.5 % (21.2-54.2); Mean Corpuscular HGB Conc 32.6 GM/DL (32-36); Mean Corpuscular Hemoglobin 30 PG (27-34); Mean Platelet Volume 11.9 FL (9.6-12.0); Monocytes # 1.1 10*3/uL (0.11-0.8); Monocytes % 5.3 % (1.7-12.7); Neutrophils # 19.1 10*3/uL (1.4-7.4); Neutrophils % 92.2 % (38.7-73.9); Platelet Count 256 T/CUMM (130-400); Red Blood Count 3.13 MC/CUMM (3.8-5.5); Red Cell Distribution Width 16.9 % (9.3-17.3); White Blood Count 20.8 T/CUMM (4-12)
[2017-08-25 05:10] LABS: Calcium 8.6 MG/DL (8.5-10.1); Osmolality,Calculated 306.8 MOS/KG (273-304); Potassium 4.8 MMOL/L (3.5-5.1)
[2017-08-25 05:17] LABS: Band Neutrophils 2 % (0-10); Lymphocytes 1 % (20-55); Segmented Neutrophils 92 % (50-85); Total Cells Counted 100
[2017-08-25 05:18] LABS: Hypochromasia 1+; Microcytosis 1+; Ovalocytes Slight
[2017-08-25 05:19] LABS: Platelet Estimate Normal
[2017-08-25] MEDS: LEVOTHYROXINE 75 MCG TABLET PO SCH (05:59)
[2017-08-25] MEDS: DORNASE ALFA 2.5 MG/2.5 ML VIAL RESP TX SCH ×2 (06:39→20:09)
[2017-08-25] MEDS: AMIODARONE 200 MG TABLET PO SCH (08:00)
[2017-08-25] MEDS: DESITIN 4OZ/NYSTATIN 15 GRAM MIXTURE PASTE TOP SCH ×2 (08:00→21:06)
[2017-08-25] MEDS: METOPROLOL TARTRATE 25 MG TABLET PO SCH ×2 (08:00→12:00)
[2017-08-25] MEDS: CALCIUM ACETATE 667 MG CAPSULE PO SCH ×2 (08:00→12:00)
[2017-08-25] MEDS: PANTOPRAZOLE 40 MG VIAL IV SCH ×2 (09:00→20:37)
[2017-08-25] MEDS: CHLORHEXIDINE 0.12% ORAL RINSE 60 ML BOTTLE SWISH/SPIT SCH ×2 (09:05→21:06)
[2017-08-25] MEDS: MONTELUKAST 10 MG TABLET PO SCH ×2 (09:05→20:37)
[2017-08-25] MEDS: LORATADINE 10 MG TABLET PO SCH (09:05)
[2017-08-25] MEDS: ASCORBIC ACID 500 MG TABLET PO SCH ×2 (09:05→20:37)
[2017-08-25] MEDS: ASPIRIN EC 81 MG TABLET PO SCH (09:05)
[2017-08-25] MEDS: DUTASTERIDE 0.5 MG CAPSULE PO SCH (09:05)
[2017-08-25] MEDS: OXYBUTYNIN 5 MG TABLET PO SCH ×2 (12:00→20:34)
[2017-08-25] MEDS ORDERED: HEPARIN 10,000 UNIT/10 ML VIAL IV PRN (13:42)
[2017-08-25] MEDS: DILTIAZEM INJ 100 MG in SODIUM CHLORIDE 0.9% 100 ML IV SCH (14:00)
[2017-08-25] MEDS: cefTRIAXone 1,000 MG in SYRINGE 1 EACH IV SCH (16:00)
[2017-08-25 17:06] LABS: Reason for Referral SEE COMMENTS
[2017-08-25] MEDS: AMIODARONE INJ 450 MG in DEXTROSE 5% 241 ML IV SCH (17:15)
[2017-08-25] MEDS: METOPROLOL TARTRATE 50 MG TABLET PO SCH (20:34)
[2017-08-25] MEDS: ATORVASTATIN 80 MG TABLET PO SCH (20:34)
[2017-08-25] MEDS: MORPHINE 10 MG/1 ML VIAL IV PRN (21:00)
[2017-08-26] MEDS: LEVALBUTEROL 1.25 MG/3 ML NEB RESP TX SCH ×7 (00:05→23:58)
[2017-08-26] MEDS: MORPHINE 10 MG/1 ML VIAL IV PRN ×3 (01:15→13:40)
[2017-08-26 03:46] LABS: Allen Test Positive
[2017-08-26 03:47] LABS: ABG Base Excess -0.2 MMOL/L (-2.5-2.5); ABG HCO3 25.3 MMOL/L (20-26); ABG Oxygen Saturation 95.2 % (95-100); ABG PCO2 45.1 MM HG (35-48); ABG PH 7.366 (7.35-7.45); ABG PO2 83.2 MM HG (80-95); ABG TCO2 26.6 MMOL/L (23-27)
[2017-08-26 04:03] LABS: Basophils % 0.1 % (0.0-0.8); Eosinophils % 0.1 % (0.00-10.9); Hemoglobin 8.7 GM/DL (14.0-18.0); Immature Granulocytes % 2.3 %; Immature Granulocytes Absolute 0.53 #; Lymphocytes # 0.4 10*3/uL (1.4-4.0); Lymphocytes % 1.6 % (21.2-54.2); Mean Corpuscular HGB Conc 31.1 GM/DL (32-36); Mean Corpuscular Hemoglobin 30 PG (27-34); Mean Corpuscular Volume 96.2 FL (87-102); Mean Platelet Volume 11.2 FL (9.6-12.0); Monocytes % 4.5 % (1.7-12.7); Neutrophils # 20.9 10*3/uL (1.4-7.4); Neutrophils % 91.4 % (38.7-73.9); Platelet Count 261 T/CUMM (130-400); Red Blood Count 2.91 MC/CUMM (3.8-5.5); Red Cell Distribution Width 16.9 % (9.3-17.3); White Blood Count 22.9 T/CUMM (4-12)
[2017-08-26 04:27] LABS: Calcium 8.5 MG/DL (8.5-10.1); Osmolality,Calculated 300.5 MOS/KG (273-304); Potassium 4.6 MMOL/L (3.5-5.1)
[2017-08-26 04:47] LABS: Eosinophils 1 % (0-10); Lymphocytes 3 % (20-55); Segmented Neutrophils 93 % (50-85)
[2017-08-26 04:49] LABS: Anisocytosis 1+; Burr Cells Few; Hypochromasia Slight; Microcytosis 1+; Platelet Estimate Normal
[2017-08-26 04:50] LABS: Total Cells Counted 100
[2017-08-26] MEDS: LEVOTHYROXINE 75 MCG TABLET PO SCH ×2 (06:48→09:15)
[2017-08-26] MEDS: PHENYLEPHRINE DRIP 40 MG/250 ML PREMIX IV SCH ×2 (06:49→18:30)
[2017-08-26] MEDS: DORNASE ALFA 2.5 MG/2.5 ML VIAL RESP TX SCH ×2 (07:10→19:40)
[2017-08-26] MEDS: AMIODARONE INJ 450 MG in DEXTROSE 5% 241 ML IV SCH (09:00)
[2017-08-26] MEDS: PANTOPRAZOLE 40 MG VIAL IV SCH ×2 (09:10→20:57)
[2017-08-26] MEDS: LORATADINE 10 MG TABLET PO SCH (09:15)
[2017-08-26] MEDS: ASPIRIN EC 81 MG TABLET PO SCH (09:15)
[2017-08-26] MEDS: METOPROLOL TARTRATE 50 MG TABLET PO SCH ×2 (09:15→20:57)
[2017-08-26] MEDS: OXYBUTYNIN 5 MG TABLET PO SCH ×2 (09:15→20:56)
[2017-08-26] MEDS: DIGOXIN 0.5 MG/2 ML AMP IV SCH (09:15)
[2017-08-26] MEDS: MONTELUKAST 10 MG TABLET PO SCH ×2 (09:15→20:56)
[2017-08-26] MEDS: CHLORHEXIDINE 0.12% ORAL RINSE 60 ML BOTTLE SWISH/SPIT SCH ×2 (09:30→20:57)
[2017-08-26] MEDS: DESITIN 4OZ/NYSTATIN 15 GRAM MIXTURE PASTE TOP SCH ×2 (09:30→20:57)
[2017-08-26] MEDS: ASCORBIC ACID 500 MG TABLET PO SCH ×2 (10:20→20:57)
[2017-08-26] MEDS: DILTIAZEM INJ 100 MG in SODIUM CHLORIDE 0.9% 100 ML IV SCH (14:00)
[2017-08-26] MEDS: cefTRIAXone 1,000 MG in SYRINGE 1 EACH IV SCH (16:30)
[2017-08-26] MEDS: ATORVASTATIN 80 MG TABLET PO SCH (20:56)
[2017-08-27] MEDS: MORPHINE 10 MG/1 ML VIAL IV PRN ×4 (03:05→23:44)
[2017-08-27] MEDS: LEVALBUTEROL 1.25 MG/3 ML NEB RESP TX SCH ×6 (03:34→23:42)
[2017-08-27 04:21] LABS: Basophils % 0.1 % (0.0-0.8); Eosinophils # 0.1 10*3/uL (0.0-0.87); Eosinophils % 0.5 % (0.00-10.9); Immature Granulocytes % 0.9 %; Immature Granulocytes Absolute 0.17 #; Lymphocytes # 0.3 10*3/uL (1.4-4.0); Lymphocytes % 1.7 % (21.2-54.2); Mean Corpuscular HGB Conc 30.8 GM/DL (32-36); Mean Corpuscular Hemoglobin 30 PG (27-34); Mean Corpuscular Volume 96.7 FL (87-102); Mean Platelet Volume 11.4 FL (9.6-12.0); Monocytes # 0.8 10*3/uL (0.11-0.8); Monocytes % 3.8 % (1.7-12.7); Neutrophils # 18.5 10*3/uL (1.4-7.4); Platelet Count 247 T/CUMM (130-400); Red Blood Count 2.69 MC/CUMM (3.8-5.5); Red Cell Distribution Width 16.9 % (9.3-17.3); White Blood Count 19.9 T/CUMM (4-12)
[2017-08-27 04:39] LABS: Calcium 8.1 MG/DL (8.5-10.1); Osmolality,Calculated 305.5 MOS/KG (273-304); Potassium 4.8 MMOL/L (3.5-5.1)
[2017-08-27] MEDS: PHENYLEPHRINE DRIP 40 MG/250 ML PREMIX IV SCH ×3 (05:06→20:45)
[2017-08-27 05:26] LABS: Band Neutrophils 1 % (0-10); Giant Platelets Few; Hypochromasia 1+; Lymphocytes 1 % (20-55); Microcytosis Slight; Ovalocytes Slight; Platelet Estimate Adequate; Segmented Neutrophils 96 % (50-85); Total Cells Counted 100
[2017-08-27] MEDS: LEVOTHYROXINE 75 MCG TABLET PO SCH (06:29)
[2017-08-27] MEDS ORDERED: SODIUM CHLORIDE 0.9% 500 ML IV ONE (07:07)
[2017-08-27] MEDS ORDERED: DIGOXIN 0.5 MG/2 ML AMP IV ONE (07:08)
[2017-08-27] MEDS: DORNASE ALFA 2.5 MG/2.5 ML VIAL RESP TX SCH ×2 (08:00→19:20)
[2017-08-27] MEDS: ASCORBIC ACID 500 MG TABLET PO SCH ×2 (08:39→21:25)
[2017-08-27] MEDS: LORATADINE 10 MG TABLET PO SCH (08:41)
[2017-08-27] MEDS: OXYBUTYNIN 5 MG TABLET PO SCH ×2 (08:41→21:26)
[2017-08-27] MEDS: METOPROLOL TARTRATE 50 MG TABLET PO SCH (08:42)
[2017-08-27] MEDS: ASPIRIN CHEW 81 MG TABLET PO SCH (08:48)
[2017-08-27] MEDS: MONTELUKAST 10 MG TABLET PO SCH ×2 (08:48→21:25)
[2017-08-27] MEDS: DIGOXIN 0.5 MG/2 ML AMP IV SCH (08:50)
[2017-08-27] MEDS: CHLORHEXIDINE 0.12% ORAL RINSE 60 ML BOTTLE SWISH/SPIT SCH ×2 (08:50→21:27)
[2017-08-27] MEDS: PANTOPRAZOLE 40 MG VIAL IV SCH ×2 (08:50→21:24)
[2017-08-27] MEDS: DESITIN 4OZ/NYSTATIN 15 GRAM MIXTURE PASTE TOP SCH ×2 (08:51→21:27)
[2017-08-27] MEDS ORDERED: SODIUM CHLORIDE 0.9% 250 ML IV PRN (10:02)
[2017-08-27] MEDS: DILTIAZEM INJ 100 MG in SODIUM CHLORIDE 0.9% 100 ML IV SCH (16:05)
[2017-08-27] MEDS: cefTRIAXone 1,000 MG in SYRINGE 1 EACH IV SCH (16:05)
[2017-08-27] MEDS: ATORVASTATIN 80 MG TABLET PO SCH (21:25)
[2017-08-27] MEDS: METOPROLOL SUCCINATE XL 50 MG TABLET PO SCH (21:26)
[2017-08-28] MEDS: LEVALBUTEROL 1.25 MG/3 ML NEB RESP TX SCH ×5 (02:58→19:18)
[2017-08-28] MEDS: PHENYLEPHRINE DRIP 40 MG/250 ML PREMIX IV SCH ×4 (04:15→20:22)
[2017-08-28 05:33] LABS: Basophils % 0.1 % (0.0-0.8); Eosinophils # 0.2 10*3/uL (0.0-0.87); Eosinophils % 1.1 % (0.00-10.9); Hematocrit 26.6 VOL% (42.0-52.0); Hemoglobin 8.2 GM/DL (14.0-18.0); Immature Granulocytes % 0.8 %; Immature Granulocytes Absolute 0.14 #; Lymphocytes # 0.3 10*3/uL (1.4-4.0); Lymphocytes % 1.7 % (21.2-54.2); Mean Corpuscular HGB Conc 30.8 GM/DL (32-36); Mean Corpuscular Hemoglobin 30 PG (27-34); Mean Corpuscular Volume 96.7 FL (87-102); Mean Platelet Volume 11.6 FL (9.6-12.0); Monocytes # 0.9 10*3/uL (0.11-0.8); Neutrophils # 15.6 10*3/uL (1.4-7.4); Neutrophils % 91.3 % (38.7-73.9); Platelet Count 219 T/CUMM (130-400); Red Blood Count 2.75 MC/CUMM (3.8-5.5); Red Cell Distribution Width 16.7 % (9.3-17.3); White Blood Count 17.1 T/CUMM (4-12)
[2017-08-28] MEDS: LEVOTHYROXINE 75 MCG TABLET PO SCH (05:47)
[2017-08-28 06:17] LABS: Calcium 8.2 MG/DL (8.5-10.1); Osmolality,Calculated 308.5 MOS/KG (273-304); Potassium 5.1 MMOL/L (3.5-5.1)
[2017-08-28 06:46] LABS: Eosinophils 1 % (0-10); Lymphocytes 4 % (20-55); Segmented Neutrophils 94 % (50-85); Total Cells Counted 100
[2017-08-28 06:47] LABS: Hypochromasia 1+; Microcytosis 1+; Ovalocytes Slight; Platelet Estimate Normal
[2017-08-28] MEDS: DORNASE ALFA 2.5 MG/2.5 ML VIAL RESP TX SCH ×2 (08:47→19:26)
[2017-08-28] MEDS: DIGOXIN 0.5 MG/2 ML AMP IV SCH (08:49)
[2017-08-28] MEDS: PANTOPRAZOLE 40 MG VIAL IV SCH ×2 (08:49→22:00)
[2017-08-28] MEDS: TROLAMINE SALICYLATE 10% CREAM 85 GM TUBE TOP PRN (08:58)
[2017-08-28] MEDS: OXYBUTYNIN 5 MG TABLET PO SCH ×2 (09:01→22:00)
[2017-08-28] MEDS: METOPROLOL SUCCINATE XL 50 MG TABLET PO SCH (09:01)
[2017-08-28] MEDS: ASPIRIN CHEW 81 MG TABLET PO SCH (09:01)
[2017-08-28] MEDS: CHLORHEXIDINE 0.12% ORAL RINSE 60 ML BOTTLE SWISH/SPIT SCH ×2 (09:09→22:03)
[2017-08-28] MEDS: DILTIAZEM INJ 100 MG in SODIUM CHLORIDE 0.9% 100 ML IV SCH ×2 (09:10→13:48)
[2017-08-28] MEDS ORDERED: METOPROLOL SUCCINATE XL 50 MG TABLET PO ONE (09:17)
[2017-08-28] MEDS: MONTELUKAST 10 MG TABLET PO SCH ×2 (09:30→22:00)
[2017-08-28] MEDS: ASCORBIC ACID 500 MG TABLET PO SCH ×2 (09:30→21:59)
[2017-08-28] MEDS: LORATADINE 10 MG TABLET PO SCH (09:30)
[2017-08-28] MEDS: DESITIN 4OZ/NYSTATIN 15 GRAM MIXTURE PASTE TOP SCH ×2 (10:45→22:03)
[2017-08-28] MEDS: FLUCONAZOLE INJ 100 MG in IV BAG 1 EACH IV SCH (15:20)
[2017-08-28] MEDS: ATORVASTATIN 80 MG TABLET PO SCH (21:59)
[2017-08-28] MEDS: METOPROLOL SUCCINATE XL 100 MG TABLET PO SCH (22:00)
[2017-08-28] MEDS: MORPHINE 10 MG/1 ML VIAL IV PRN (22:10)
[2017-08-29] MEDS: LEVALBUTEROL 1.25 MG/3 ML NEB RESP TX SCH ×2 (00:20→04:14)
[2017-08-29 04:56] LABS: Basophils % 0.1 % (0.0-0.8); Eosinophils # 0.1 10*3/uL (0.0-0.87); Eosinophils % 0.9 % (0.00-10.9); Hematocrit 27.2 VOL% (42.0-52.0); Hemoglobin 8.5 GM/DL (14.0-18.0); Immature Granulocytes % 0.9 %; Immature Granulocytes Absolute 0.13 #; Lymphocytes # 0.4 10*3/uL (1.4-4.0); Lymphocytes % 2.4 % (21.2-54.2); Mean Corpuscular HGB Conc 31.3 GM/DL (32-36); Mean Corpuscular Hemoglobin 30 PG (27-34); Mean Corpuscular Volume 96.8 FL (87-102); Mean Platelet Volume 11.8 FL (9.6-12.0); Monocytes # 0.8 10*3/uL (0.11-0.8); Monocytes % 5.2 % (1.7-12.7); Neutrophils # 13.4 10*3/uL (1.4-7.4); Neutrophils % 90.5 % (38.7-73.9); Platelet Count 205 T/CUMM (130-400); Red Blood Count 2.81 MC/CUMM (3.8-5.5); Red Cell Distribution Width 16.9 % (9.3-17.3); White Blood Count 14.8 T/CUMM (4-12)
[2017-08-29 05:26] LABS: Osmolality,Calculated 293.5 MOS/KG (273-304); Potassium 4.5 MMOL/L (3.5-5.1)
[2017-08-29 05:31] LABS: Lymphocytes 7 % (20-55); Macrocytosis 2+; Platelet Estimate Normal; Segmented Neutrophils 91 % (50-85); Total Cells Counted 100
[2017-08-29] MEDS: LEVOTHYROXINE 75 MCG TABLET PO SCH (05:34)
[2017-08-29] MEDS ORDERED: LEVALBUTEROL 1.25 MG/3 ML NEB RESP TX PRN (06:17)
[2017-08-29] MEDS: ARFORMOTEROL 15 MCG/2 ML NEB RESP TX SCH ×2 (07:50→19:29)
[2017-08-29] MEDS: DORNASE ALFA 2.5 MG/2.5 ML VIAL RESP TX SCH ×2 (07:51→19:29)
[2017-08-29] MEDS: OXYBUTYNIN 5 MG TABLET PO SCH ×2 (08:30→21:11)
[2017-08-29] MEDS: METOPROLOL SUCCINATE XL 100 MG TABLET PO SCH ×2 (08:30→21:06)
[2017-08-29] MEDS: MONTELUKAST 10 MG TABLET PO SCH ×2 (08:30→21:11)
[2017-08-29] MEDS: ASPIRIN CHEW 81 MG TABLET PO SCH (08:30)
[2017-08-29] MEDS: LORATADINE 10 MG TABLET PO SCH (08:30)
[2017-08-29] MEDS: CHLORHEXIDINE 0.12% ORAL RINSE 60 ML BOTTLE SWISH/SPIT SCH ×2 (08:31→21:10)
[2017-08-29] MEDS: DESITIN 4OZ/NYSTATIN 15 GRAM MIXTURE PASTE TOP SCH ×2 (08:31→21:11)
[2017-08-29] MEDS: PANTOPRAZOLE 40 MG VIAL IV SCH ×2 (08:31→21:08)
[2017-08-29] MEDS: ASCORBIC ACID 500 MG TABLET PO SCH ×2 (08:31→23:50)
[2017-08-29] MEDS: PHENYLEPHRINE DRIP 40 MG/250 ML PREMIX IV SCH ×3 (08:43→18:25)
[2017-08-29] MEDS ORDERED: CLOPIDOGREL 300 MG TABLET PO ONE (09:15)
[2017-08-29] MEDS: DILTIAZEM INJ 100 MG in SODIUM CHLORIDE 0.9% 100 ML IV SCH (14:12)
[2017-08-29] MEDS: FLUCONAZOLE INJ 100 MG in IV BAG 1 EACH IV SCH (14:25)
[2017-08-29] MEDS: ATORVASTATIN 80 MG TABLET PO SCH (21:06)
[2017-08-30] MEDS: PHENYLEPHRINE DRIP 40 MG/250 ML PREMIX IV SCH ×3 (02:10→11:54)
[2017-08-30] MEDS: LEVOTHYROXINE 75 MCG TABLET PO SCH (06:02)
[2017-08-30 06:32] LABS: Calcium 8.2 MG/DL (8.5-10.1); Osmolality,Calculated 297.5 MOS/KG (273-304); Potassium 4.9 MMOL/L (3.5-5.1)
[2017-08-30 06:36] LABS: Basophils % 0.1 % (0.0-0.8); Eosinophils # 0.1 10*3/uL (0.0-0.87); Eosinophils % 0.8 % (0.00-10.9); Hematocrit 27.6 VOL% (42.0-52.0); Hemoglobin 8.5 GM/DL (14.0-18.0); Immature Granulocytes % 0.9 %; Immature Granulocytes Absolute 0.13 #; Lymphocytes # 0.3 10*3/uL (1.4-4.0); Lymphocytes % 2.4 % (21.2-54.2); Mean Corpuscular HGB Conc 30.8 GM/DL (32-36); Mean Corpuscular Hemoglobin 30 PG (27-34); Mean Corpuscular Volume 98.2 FL (87-102); Mean Platelet Volume 11.7 FL (9.6-12.0); Monocytes % 6.8 % (1.7-12.7); Neutrophils # 12.5 10*3/uL (1.4-7.4); Platelet Count 221 T/CUMM (130-400); Red Blood Count 2.81 MC/CUMM (3.8-5.5); Red Cell Distribution Width 17.1 % (9.3-17.3)
[2017-08-30 07:20] LABS: Burr Cells Slight; Giant Platelets Few; Hypochromasia 1+; Lymphocytes 1 % (20-55); Microcytosis Slight; Ovalocytes Slight; Platelet Estimate Adequate; Segmented Neutrophils 93 % (50-85); Total Cells Counted 100
[2017-08-30] MEDS ORDERED: LIDOCAINE 1% 20 ML VIAL MISC INJ ONE (07:30)
[2017-08-30] MEDS ORDERED: LIDOCAINE 2% 20 ML VIAL RESP TX ONE (07:30)
[2017-08-30] MEDS ORDERED: LIDOCAINE 2% VISCOUS 100 ML BOTTLE SWISH/SPIT ONE (07:30)
[2017-08-30] MEDS ORDERED: FUROSEMIDE 100 MG/10 ML VIAL IV SCH (08:00)
[2017-08-30] MEDS: ARFORMOTEROL 15 MCG/2 ML NEB RESP TX SCH (08:00)
[2017-08-30] MEDS: DORNASE ALFA 2.5 MG/2.5 ML VIAL RESP TX SCH (08:05)
[2017-08-30] MEDS ORDERED: SODIUM CHLORIDE 0.9% 500 ML IV ONE (08:27)
[2017-08-30] MEDS ORDERED: CLOPIDOGREL 75 MG TABLET PO SCH (09:00)
[2017-08-30] MEDS: LORATADINE 10 MG TABLET PO SCH (09:46)
[2017-08-30] MEDS: ASPIRIN CHEW 81 MG TABLET PO SCH (09:46)
[2017-08-30] MEDS: OXYBUTYNIN 5 MG TABLET PO SCH (09:46)
[2017-08-30] MEDS: ASCORBIC ACID 500 MG TABLET PO SCH (09:46)
[2017-08-30] MEDS: PANTOPRAZOLE 40 MG VIAL IV SCH (09:46)
[2017-08-30] MEDS: METOPROLOL SUCCINATE XL 100 MG TABLET PO SCH (09:46)
[2017-08-30] MEDS: MONTELUKAST 10 MG TABLET PO SCH (09:46)
[2017-08-30] MEDS: DIGOXIN 0.5 MG/2 ML AMP IV SCH (09:47)
[2017-08-30] MEDS: CHLORHEXIDINE 0.12% ORAL RINSE 60 ML BOTTLE SWISH/SPIT SCH (09:47)
[2017-08-30] MEDS: DESITIN 4OZ/NYSTATIN 15 GRAM MIXTURE PASTE TOP SCH (09:47)
[2017-08-30] MEDS ORDERED: MORPHINE 10 MG/1 ML VIAL IV PRN ×2 (10:47→10:54)
[2017-08-30] MEDS ORDERED: LORazepam 2 MG/1 ML VIAL IV PRN (10:54)
[2017-08-30 12:04] VITALS: BP 89/48
[2017-08-30] MEDS: FLUCONAZOLE INJ 100 MG in IV BAG 1 EACH IV SCH (14:01)
== END 2017-08-30 15:55 | disposition expired | DRG 270 ==
LOC: N.ED 13:20 → N.EDINP 15:55 → SUPCPDRO 15:55 → N.EDINP 19:18 → N.TELES 19:23 → N.CVR 08-10 13:56 → N.ICU 08-11 19:49 → N.5E 08-30 13:13
PROVIDERS: ADMIT Internal Medicine Clinical Cardiac Electrophysiology; ATTEND Internal Medicine Clinical Cardiac Electrophysiology